=== PATIENT | female | born 1940 | race Caucasian/White ===

== ENCOUNTER 2022-08-29 15:47 | Observation (INO) | payer MEDICARE, SELFPAY ==
[2022-08-29 15:29] VITALS: BP 141/95; PULSE 98; RESP 17; O2SAT 98
[2022-08-29 16:00] VITALS: BP 122/96; PULSE 90; RESP 20; TEMP 37.1; O2SAT 99; BMI 23.7
--- NOTE | 2022-08-29 17:09 | ED_ITS ---
Documented by User: Isrrael Warner MD 08/29/22 18:36 HPI - General Adult General Chief complaint: Weakness Stated complaint: GENERAL WEAKNESS Time Seen by Provider: 08/29/22 16:59 Source: patient Mode of arrival: Wheelchair Limitations: no limitations History of Present Illness HPI narrative: This document has been composed with a new electronic medical record and [employer]ging voice recognition system. This document may not fully inaccurately reflect the entirety of the patient encounter. this patient says she hasn't felt very good for approximately one week. She says she has no appetite. She says she has not been able to drink. She says she's not been asleep. She said at nighttime both her hands and both her feet itches but there is no redness or swelling. She has not changed her medications. She is being treated for Parkinson type symptomatology and cholesterol problem but denies any other medical illnesses. She's not had heaviness squeezing or pressure in her chest. She has no shortness of breath. She said she felt warm but doesn't know if she actually was running a fever over the last week or so. She has no urinary symptoms. She has not seen any blood in her stool or urine. She is not aswellingofherlegs.Herprimarycaredoctorsuggestedshegototheemergenroom. Related Data Home Medications Medication Instructions Recorded Confirmed atorvastatin 20 mg tablet 20 mg PO DAILY 08/29/22 08/29/22 droxidopa 200 mg capsule 200 mg PO DAILY 08/29/22 08/29/22 estradiol 0.01% (0.1 mg/gram) 1 appful vaginal 08/29/22 vaginal cream Allergies Allergy/AdvReac Type Severity Reaction Status Date / Time Penicillins Allergy Intermediate Verified 08/29/22 16:05 teramician Allergy Intermediate Uncoded 08/29/22 16:05 Exam Narrative Exam Narrative: awake alert good historian does not appear in extremis. Primarily just states that she feels terrible weak fatigue sleep deprived and can't eat and drink recently. Constitutional Vital Signs - 24 hr 08/29/22 16:00 08/29/22 19:30 08/29/22 19:30 Temperature 98.8 F Pulse Rate Pulse Rate [Monitor] 90 Respiratory Rate 20 Blood Pressure Blood Pressure [Right Arm] 122/96 H Pulse Oximetry 99 Oxygen Delivery Method Room Air Room Air Room Air 08/29/22 15:29 08/29/22 19:27 Temperature Pulse Rate 98 H 99 H Pulse Rate [Monitor] Respiratory Rate 17 17 Blood Pressure 141/95 H 125/60 H Blood Pressure [Right Arm] Pulse Oximetry 98 98 Oxygen Delivery Method Common normals: no apparent distress Exam limitations: no altered mental status Orientation/consciousness: Yes oriented to person Eye Common normals: PERRL Neck & C-Spine Common normals: full ROM, no lymphadenopathy and supple Respiratory Common normals: normal respiratory effort, no use of accessory muscles and clear to auscultation bilaterally Effort & inspection: able to speak in complete sentences Back & Pelvis Common normals: no CVA tenderness Neuro Common normals: oriented x3 and CN's II-XII intact bilaterally Course Vital Signs Vital signs: Vital Signs Pulse Rate 98 H 08/29/22 15:29 Respiratory Rate 17 08/29/22 15:29 Blood Pressure 141/95 H 08/29/22 15:29 Pulse Oximetry 98 08/29/22 15:29 Temperature 98.8 F 08/29/22 16:00 Pulse Rate 99 H 08/29/22 19:27 Respiratory Rate 17 08/29/22 19:27 Blood Pressure 125/60 H 08/29/22 19:27 Pulse Oximetry 98 08/29/22 19:27 Oxygen Delivery Method Room Air 08/29/22 19:30 Medical Decision Making MDM Narrative Medical decision making narrative: this patient comes to the Emergency Room with nonspecific findings on several days' duration. Overall her abnormal laboratory tests show a low potassium, elevated liver function tests. Decreased GFR. We were unable to obtain a urinalysis on her her white blood cell count is elevated as well. Her troponin is modestly elevated but her EKG shows sinus rhythm with nonspecific T-wave changes. I'll discuss this case with the hospitalist for further delineation of her disposition. Lab Data Labs: Lab Results 08/29/22 08/29/22 Range/Units 17:41 19:33 WBC 15.9 H (4.0-11.0) 10^3/uL RBC 4.03 L (4.20-5.40) 10^6/uL Hgb 12.4 (12.0-16.0) g/dL Hct 36.7 (36.0-48.0) % MCV 91.1 (81.0-99.0) fL MCH 30.8 (26.7-34.0) pg MCHC 33.8 (29.9-35.2) g/dL RDW 13.4 (11.0-15.0) % Plt Count 379 (150-450) 10^3/uL MPV 9.8 (9.5-13.5) fL Neut % (Auto) 82.2 H (43.0-75.0) % Lymph % (Auto) 6.4 L (20.5-60.0) % [place] % (Auto) 8.4 (1.7-12.0) % Eos % (Auto) 1.9 (0.9-7.0) % Baso % (Auto) 0.3 (0.2-2.0) % Neut # (Auto) 13.1 H (1.4-6.5) 10^3/uL Lymph # (Auto) 1.0 L (1.2-3.8) 10^3/uL [place] # (Auto) 1.3 H (0.3-0.8) 10^3/uL Eos # (Auto) 0.3 (0.0-0.7) 10^3/uL Baso # (Auto) 0.1 (0.0-0.1) 10^3/uL Abs Immat Gran (auto) 0.12 H (0.00-0.03) 10^3/uL Imm/Tot Granulo (auto) 0.8 H (0.0-0.5) % Sodium 132 L (136-145) mmol/L Potassium 3.2 L (3.5-5.1) mmol/L Chloride 96 L (98-107) mmol/L Carbon Dioxide 24.0 (21.0-32.0) mmol/L Anion Gap 15.2 BUN 17.0 (7.0-18.0) mg/dL Creatinine 1.02 (0.55-1.02) mg/dL Est GFR ( Amer) >60 (>=60) Est GFR (Non-Af Amer) 52 L (>=60) BUN/Creatinine Ratio 16.7 Glucose 132 H (74-106) mg/dL Lactate 1.9 (0.4-2.0) mmol/L Calcium 9.1 (8.5-10.1) mg/dL Total Bilirubin 0.5 (0.2-1.0) mg/dL AST 81 H (15-37) U/L ALT 148 H (14-59) U/L Alkaline Phosphatase 225 H (46-116) U/L Troponin I High Sens 85.1 H* 69.0 H* (4.0-51.3) pg/mL Total Protein 7.8 (6.4-8.2) g/dL Albumin 2.4 L (3.4-5.0) g/dL Globulin 5.4 g/dL Albumin/Globulin Ratio 0.4 TSH 3.967 H (0.358-3.740) uIU/mL Discharge Plan Discharge Chief Complaint: Weakness Clinical Impression: Hepatitis, Dehydration Patient Disposition: Admitted As Inpatient Time of Disposition Decision: 18:38 Documented by User: Kevin Torerz MD 08/29/22 21:33 HPI - General Adult General Chief complaint: Weakness Stated complaint: GENERAL WEAKNESS Time Seen by Provider: 08/29/22 16:59 Related Data Home Medications Medication Instructions Recorded Confirmed atorvastatin 20 mg tablet 20 mg PO DAILY 08/29/22 08/29/22 droxidopa 200 mg capsule 200 mg PO DAILY 08/29/22 08/29/22 estradiol 0.01% (0.1 mg/gram) 1 appful vaginal 08/29/22 vaginal cream Allergies Allergy/AdvReac Type Severity Reaction Status Date / Time Penicillins Allergy Intermediate Verified 08/29/22 16:05 teramician Allergy Intermediate Uncoded 08/29/22 16:05 Exam Constitutional Vital Signs - 24 hr 08/29/22 16:00 08/29/22 19:30 08/29/22 19:30 Temperature 98.8 F Pulse Rate Pulse Rate [Monitor] 90 Respiratory Rate 20 Blood Pressure Blood Pressure [Right Arm] 122/96 H Pulse Oximetry 99 Oxygen Delivery Method Room Air Room Air Room Air 08/29/22 15:29 08/29/22 19:27 Temperature Pulse Rate 98 H 99 H Pulse Rate [Monitor] Respiratory Rate 17 17 Blood Pressure 141/95 H 125/60 H Blood Pressure [Right Arm] Pulse Oximetry 98 98 Oxygen Delivery Method Course Vital Signs Vital signs: Vital Signs Pulse Rate 98 H 08/29/22 15:29 Respiratory Rate 17 08/29/22 15:29 Blood Pressure 141/95 H 08/29/22 15:29 Pulse Oximetry 98 08/29/22 15:29 Temperature 98.8 F 08/29/22 16:00 Pulse Rate 99 H 08/29/22 19:27 Respiratory Rate 17 08/29/22 19:27 Blood Pressure 125/60 H 08/29/22 19:27 Pulse Oximetry 98 08/29/22 19:27 Oxygen Delivery Method Room Air 08/29/22 19:30 Medical Decision Making MDM Narrative Medical decision making narrative: this patient comes to the Emergency Room with nonspecific findings on several days' duration. Overall her abnormal laboratory tests show a low potassium, elevated liver function tests. Decreased GFR. We were unable to obtain a urinalysis on her her white blood cell count is elevated as well. Her troponin is modestly elevated but her EKG shows sinus rhythm with nonspecific T-wave changes. I'll discuss this case with the hospitalist for further delineation of her disposition. 2129 Patient was initially seen and evaluated by Dr. Posada. Patient was admitted by Dr. Banegas to Dr. Soni. Patient's sodium and potassium was slightly low, patient has elevation of LFTs. Patient has leukocytosis. Patient has been admitted to Dr. Soni. Patient's 2nd troponin has improved, CT of the abdomen and pelvis showed no acute abnormality. Patient will be admitted for further electrolyte replacement, hydration, and follow-up with hospitals. Patient's sodium is 132, potassium is 3.2, patient has received IV fluids. Lab Data Lab results reviewed: Yes I reviewed the patient's lab results Labs: Lab Results 08/29/22 08/29/22 Range/Units 17:41 19:33 WBC 15.9 H (4.0-11.0) 10^3/uL RBC 4.03 L (4.20-5.40) 10^6/uL Hgb 12.4 (12.0-16.0) g/dL Hct 36.7 (36.0-48.0) % MCV 91.1 (81.0-99.0) fL MCH 30.8 (26.7-34.0) pg MCHC 33.8 (29.9-35.2) g/dL RDW 13.4 (11.0-15.0) % Plt Count 379 (150-450) 10^3/uL MPV 9.8 (9.5-13.5) fL Neut % (Auto) 82.2 H (43.0-75.0) % Lymph % (Auto) 6.4 L (20.5-60.0) % [place] % (Auto) 8.4 (1.7-12.0) % Eos % (Auto) 1.9 (0.9-7.0) % Baso % (Auto) 0.3 (0.2-2.0) % Neut # (Auto) 13.1 H (1.4-6.5) 10^3/uL Lymph # (Auto) 1.0 L (1.2-3.8) 10^3/uL [place] # (Auto) 1.3 H (0.3-0.8) 10^3/uL Eos # (Auto) 0.3 (0.0-0.7) 10^3/uL Baso # (Auto) 0.1 (0.0-0.1) 10^3/uL Abs Immat Gran (auto) 0.12 H (0.00-0.03) 10^3/uL Imm/Tot Granulo (auto) 0.8 H (0.0-0.5) % Sodium 132 L (136-145) mmol/L Potassium 3.2 L (3.5-5.1) mmol/L Chloride 96 L (98-107) mmol/L Carbon Dioxide 24.0 (21.0-32.0) mmol/L Anion Gap 15.2 BUN 17.0 (7.0-18.0) mg/dL Creatinine 1.02 (0.55-1.02) mg/dL Est GFR ( Amer) >60 (>=60) Est GFR (Non-Af Amer) 52 L (>=60) BUN/Creatinine Ratio 16.7 Glucose 132 H (74-106) mg/dL Lactate 1.9 (0.4-2.0) mmol/L Calcium 9.1 (8.5-10.1) mg/dL Total Bilirubin 0.5 (0.2-1.0) mg/dL AST 81 H (15-37) U/L ALT 148 H (14-59) U/L Alkaline Phosphatase 225 H (46-116) U/L Troponin I High Sens 85.1 H* 69.0 H* (4.0-51.3) pg/mL Total Protein 7.8 (6.4-8.2) g/dL Albumin 2.4 L (3.4-5.0) g/dL Globulin 5.4 g/dL Albumin/Globulin Ratio 0.4 TSH 3.967 H (0.358-3.740) uIU/mL Discharge Plan Discharge Chief Complaint: Weakness Clinical Impression: Hepatitis, Dehydration Patient Disposition: Admitted As Inpatient Time of Disposition Decision: 18:38
--- NOTE | 2022-08-29 17:11 | ECG_ITS ---
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
--- NOTE | 2022-08-29 17:11 | XR_ITS ---
The [address] [address] Patient Name: JENNIFER BROWN MRN: [id number] date: 1940 Sex: F Assigned Patient Location: ER Current Patient Location: ER Accession/Order Number: [id number] Exam Date: 08/29/2022 17:27 Report Date: 08/29/2022 18:16 At the request of: SHEMAR CRABTREE Procedure: XR chest 1V EXAM: XR chest 1V HISTORY: dyspnea COMPARISON: None. TECHNIQUE: AP portable study FINDINGS: The heart is within normal limits in size. Calcification is noted at the aortic arch. Linear atelectasis or fibrosis is noted at the left lung base laterally. The lung pinto are otherwise clear. Pleural spaces are clear. Bony structures are unremarkable. IMPRESSION: Linear atelectasis or fibrosis at the left lung base. No superimposed acute cardiopulmonary process is otherwise identified. Electronically authenticated by: Luis Armando CHAVEZ Date: 08/29/2022 18:16
[2022-08-29] MEDS: 0.9 % SODIUM CHLORIDE 1,000 ML 100 ML IV (17:51)
[2022-08-29 17:59] LABS: Basophils Absolute Auto 0.1 10^3/uL (0.0-0.1); Basophils Percent Auto 0.3 % (0.2-2.0); Eosinophils Absolute Auto 0.3 10^3/uL (0.0-0.7); Eosinophils Percent Auto 1.9 % (0.9-7.0); Hematocrit 36.7 % (36.0-48.0); Hemoglobin 12.4 g/dL (12.0-16.0); Immature Granulocytes Abs Auto 0.12 10^3/uL (0.00-0.03); Immature Granulocytes Pct Auto 0.8 % (0.0-0.5); Lymphocytes Percent Auto 6.4 % (20.5-60.0); Mean Corpuscular HGB Conc 33.8 g/dL (29.9-35.2); Mean Corpuscular Hemoglobin 30.8 pg (26.7-34.0); Mean Corpuscular Volume 91.1 fL (81.0-99.0); Mean Platelet Volume 9.8 fL (9.5-13.5); Monocytes Absolute Auto 1.3 10^3/uL (0.3-0.8); Monocytes Percent Auto 8.4 % (1.7-12.0); Neutrophils Absolute Auto 13.1 10^3/uL (1.4-6.5); Neutrophils Percent Auto 82.2 % (43.0-75.0); Platelet Count 379 10^3/uL (150-450); Red Blood Count 4.03 10^6/uL (4.20-5.40); Red Cell Distribution Width 13.4 % (11.0-15.0); White Blood Count 15.9 10^3/uL (4.0-11.0)
[2022-08-29 18:12] LABS: Alanine Aminotransferase 148 U/L (14-59); Albumin Globulin Ratio 0.4; Albumin Level 2.4 g/dL (3.4-5.0); Alkaline Phosphatase 225 U/L (46-116); Anion Gap 15.2; Aspartate Amino Transferase 81 U/L (15-37); BUN Creatinine Ratio 16.7; Bilirubin Total 0.5 mg/dL (0.2-1.0); Calcium 9.1 mg/dL (8.5-10.1); Chloride 96 mmol/L (98-107); Estimated GFR (African America >60 (>=60); Estimated GFR (Non-African Ame 52 (>=60); Globulin 5.4 g/dL; Glucose 132 mg/dL (74-106); Potassium 3.2 mmol/L (3.5-5.1); Sodium 132 mmol/L (136-145); Total Protein 7.8 g/dL (6.4-8.2)
[2022-08-29 18:17] LABS: Lactate/Lactic Acid 1.9 mmol/L (0.4-2.0)
[2022-08-29 18:20] LABS: Thyroid Stimulating Hormone 3.967 uIU/mL (0.358-3.740)
[2022-08-29 18:26] LABS: Troponin I High Sensitivity 85.1 pg/mL (4.0-51.3)
--- NOTE | 2022-08-29 18:31 | PC.NURSE ---
Took pt to bathroom for urine sample and pt urinated behind the hat set in the toilet for her. Dr informed that a urine was not collected at this time
[2022-08-29 19:27] VITALS: BP 125/60; PULSE 101; PULSE 99; RESP 17; RESP 24; O2SAT 95; O2SAT 98
--- NOTE | 2022-08-29 20:13 | CT_ITS ---
The [address] [address] Patient Name: JENNIFER BROWN MRN: [id number] date: 1940 Sex: F Assigned Patient Location: ER Current Patient Location: ER Accession/Order Number: [id number] Exam Date: 08/29/2022 08:42 Report Date: 08/29/2022 21:21 At the request of: CHRIST PATE Procedure: CT abdomen pelvis w con EXAMINATION: CT ABDOMEN AND PELVIS WITH IV CONTRAST CLINICAL HISTORY: General weakness, headache and elevated white blood count. TECHNIQUE: CT of the abdomen and pelvis was performed using standard technique, scanning from just above the dome of the diaphragm to the symphysis pubis. All CT scans at this facility use dose modulation, iterative reconstruction, and/or weight based dosing when appropriate to reduce radiation dose to as low as reasonably achievable. Contrast: IV: 100 ml of Omnipaque 300 COMPARISON: None. RESULT: Liver: No mass. Focal fat falciform ligament. Biliary: No bile duct dilation. Gallbladder is unremarkable. Spleen: No mass. No splenomegaly. Pancreas: No mass or duct dilation. Adrenals: No mass. Kidneys: Right renal atrophy with multifocal lobulation and scarring. No suspicious mass or enhancement. No renal calculi or hydronephrosis. GI tract: Small hiatal hernia. No bowel dilation or wall thickening. Colonic diverticulosis without diverticulitis. Extensive colonic stool. Appendix is not visualized. Lymph nodes: No abdominal or pelvic lymphadenopathy. Mesentery/Peritoneum: No ascites or mass. Retroperitoneum: No mass. Vasculature: The celiac axis and SMA are patent. The portal vein and branches, splenic vein, SMV, and hepatic veins are patent. Abdominal aortic atherosclerotic disease without aneurysm. Pelvis: No mass, ascites or fluid collection. Fluid-filled moderately distended urinary bladder. Bones/Soft Tissues: Degenerative changes. Lower thorax: Bibasilar atelectasis. IMPRESSION: No acute findings in the abdomen and pelvis. Extensive colonic stool. Colonic diverticulosis without diverticulitis. Electronically authenticated by: JESSICA OH Date: 08/29/2022 21:21
[2022-08-29] MEDS: ACETAMINOPHEN 500 MG TABLET PO (21:09)
[2022-08-29 22:33] VITALS: BP 102/63; PULSE 96; RESP 16; TEMP 36.7; O2SAT 97; BMI 25.2
[2022-08-29 22:46] VITALS: BP 102/63; PULSE 96; RESP 16; TEMP 36.7; O2SAT 97; BMI 25.2
--- NOTE | 2022-08-30 02:30 | P.PN_ITS ---
Progress Note: Subjective Subjective Interval history: The patient is a 81-year-old female presenting with 3 to 4-day history of decreased urine output, decreased appetite, generalized weakness and lethargy. She is a very poor historian. She is also had generalized aches and pains. She denies any change in medications or any new medications. She denies any recent travel. She presented to the emergency room and was found to have mild leukocytosis as well as hypokalemia. She also had mild transaminitis. CT abdomen was obtained and was negative. The patient is being admitted for further evaluation. Exam Constitutional Vital Signs - 24 hr 08/29/22 16:00 08/29/22 19:30 08/29/22 19:30 Temperature 98.8 F Pulse Rate Pulse Rate [Monitor] 90 Respiratory Rate 20 Blood Pressure Blood Pressure [Right Arm] 122/96 H Pulse Oximetry 99 Oxygen Delivery Method Room Air Room Air Room Air 08/29/22 15:29 08/29/22 19:27 08/29/22 19:27 Temperature Pulse Rate 98 H 99 H 101 H Pulse Rate [Monitor] Respiratory Rate 17 17 24 Blood Pressure 141/95 H 125/60 H 125/60 H Blood Pressure [Right Arm] Pulse Oximetry 98 98 95 Oxygen Delivery Method 08/29/22 22:38 08/29/22 22:46 08/29/22 22:33 Temperature 98.0 F 98.0 F Pulse Rate 96 H 96 H Pulse Rate [Monitor] Respiratory Rate 16 16 Blood Pressure Blood Pressure [Right Arm] 102/63 102/63 Pulse Oximetry 97 97 Oxygen Delivery Method Room Air Room Air Room Air 08/29/22 22:33 Temperature Pulse Rate Pulse Rate [Monitor] Respiratory Rate Blood Pressure Blood Pressure [Right Arm] Pulse Oximetry Oxygen Delivery Method Room Air [facility] Common normals: normocephalic Chest Chest: symmetrical chest wall rise Respiratory Common normals: normal respiratory effort, no use of accessory muscles and clear to auscultation bilaterally Cardio Common normals: regular rate and regular rhythm GI Common normals: Normal to inspection, nondistended, normoactive bowel sounds present Neuro Common normals: oriented x3 Progress Note: Objective Labs Labs: Short CBC 08/29/22 Range/Units 17:41 WBC 15.9 H (4.0-11.0) 10^3/uL Hgb 12.4 (12.0-16.0) g/dL Hct 36.7 (36.0-48.0) % Plt Count 379 (150-450) 10^3/uL BMP 08/29/22 17:41 Sodium 132 L Potassium 3.2 L Chloride 96 L Carbon Dioxide 24.0 BUN 17.0 Creatinine 1.02 Glucose 132 H Calcium 9.1 Liver Function 08/29/22 Range/Units 17:41 Total Bilirubin 0.5 (0.2-1.0) mg/dL AST 81 H (15-37) U/L ALT 148 H (14-59) U/L Alkaline Phosphatase 225 H (46-116) U/L Albumin 2.4 L (3.4-5.0) g/dL Progress Note: A&P Assessment and Plan (1) Dehydration: Plan The patient is a 81-year-old female with above medical problems, presenting with generalized weakness. Generalized weakness -Provide supportive care -Likely from electrolyte derangements -PT evaluation Mild dehydration -Start gentle IV fluids Hypokalemia -Add potassium and IV fluids Transaminitis -Hold statin -Monitor liver function tests DVT Prophylaxis -Lovenox, SCDs Medication review -Medication reconciliation form completed Goals of care -Full code Communications -Discussed with the emergency room physician -Discussed with the bedside nurse -Patient updated of plan of care, all questions answered to their satisfaction Disposition -Home when medically stable Telemedicine clause -As the provider of this telehealth evaluation, requested by the patient's evaluating physician, I attest that I introduced myself to the patient, provided my credentials and determined that telemedicine via a real-time, two-way interactive audio and video platform is an appropriate and effective means of providing this service. -I reviewed the patient's chart and had a discussion with the member of the patient's treatment team. -The patient and I mutually agreed with continuation of this evaluation via telemedicine. The patient consented for the telemedicine evaluation. -This virtual encounter was taken place from [place], [place]. The encounter was approximately 35 minutes. The nurse was present during the entire time of the encounter and was able to remove the stethoscope and appropriate directions. The patient was evaluated at [facility]. Fall Risk Details Noel Fall Scale Risk Level: Moderate Fall Risk Current Medications: Current Medications Acetaminophen (Acetaminophen 325 Mg Tablet) 650 mg PO Q4H PRN PRN Reason: Mild Pain Calcium Carbonate (Calcium Carbonate 500 Mg (200mg Elemental) Tab.Chew) 500 mg PO ACHS PRN PRN Reason: Dyspepsia Enoxaparin Sodium (Enoxaparin Sodium 40 Mg/0.4 Ml Syringe) 40 mg SUBQ QD FERNANDA Sodium Chloride (Sodium Chloride 0.9% 1,000 Ml) 1,000 mls @ 100 mls/hr IV .Q10H FERNANDA Last Infusion: 08/29/22 19:52 Dose: Infused Potassium Chloride/Sodium Chloride (Sodium Chloride 0.45% - 20 Meq Kcl) 1,000 mls @ 100 mls/hr IV .Q10H FERNANDA Non-Formulary Medication (Droxidopa) 200 mg PO DAILY FERNANDA Non-Formulary Medication (Estradiol) 1 appful VAGINAL .every other day FERNANDA Non-Formulary Medication (Trazadone) 50 mg PO QHS PRN PRN Reason: Insomnia Omeprazole (Omeprazole 40 Mg Capsule.Dr) 40 mg PO QD FERNANDA Ondansetron HCl (Ondansetron Pf 4 Mg/2 Ml Vial) 4 mg IV Q4H PRN PRN Reason: Nausea And Vomiting Ropinirole HCl (Ropinirole Hcl 0.25 Mg Tablet) 0.25 mg PO .at bedtime FERNANDA Time Spent With Patient Time: Total time spent is greater than 50% in coordination of care (as documented) at patient's floor/unit and/or counseling patient: Telemedicine Attestation Telemedicine Attestation I conducted this encounter from [place], [place] via secure live, [id number] video conference with the patient, CHARGE TEST-CHARGES located at [facility] withnurse Prior to the interview, the risks and benefits of telemedicine were discussed with the patient and verbal consent was obtained.
[2022-08-30 04:00] VITALS: BP 117/69; PULSE 97; RESP 16; TEMP 36.7; O2SAT 94
[2022-08-30] MEDS: POLYETHYLENE GLYCOL 3350 17 GM POWDER PACKET PO (04:18)
[2022-08-30] MEDS: POTASSIUM CHLORIDE-0.45% NACL 1,000 ML 100 MEQ IV (04:18)
[2022-08-30] MEDS: ENOXAPARIN SODIUM 40 MG/0.4 ML SYRINGE SUBQ (04:19)
[2022-08-30] MEDS: OMEPRAZOLE 40 MG CAPSULE.DR PO (04:19)
[2022-08-30 05:26] LABS: Basophils Absolute Auto 0.1 10^3/uL (0.0-0.1); Basophils Percent Auto 0.3 % (0.2-2.0); Eosinophils Absolute Auto 0.2 10^3/uL (0.0-0.7); Eosinophils Percent Auto 1.1 % (0.9-7.0); Hematocrit 33.4 % (36.0-48.0); Hemoglobin 11.2 g/dL (12.0-16.0); Immature Granulocytes Abs Auto 0.15 10^3/uL (0.00-0.03); Lymphocytes Absolute Auto 0.6 10^3/uL (1.2-3.8); Lymphocytes Percent Auto 4.1 % (20.5-60.0); Mean Corpuscular HGB Conc 33.5 g/dL (29.9-35.2); Mean Corpuscular Hemoglobin 30.9 pg (26.7-34.0); Mean Corpuscular Volume 92.3 fL (81.0-99.0); Mean Platelet Volume 9.8 fL (9.5-13.5); Monocytes Absolute Auto 1.1 10^3/uL (0.3-0.8); Monocytes Percent Auto 7.3 % (1.7-12.0); Neutrophils Absolute Auto 12.9 10^3/uL (1.4-6.5); Neutrophils Percent Auto 86.2 % (43.0-75.0); Platelet Count 378 10^3/uL (150-450); Red Blood Count 3.62 10^6/uL (4.20-5.40); Red Cell Distribution Width 13.6 % (11.0-15.0)
[2022-08-30 05:51] LABS: Alanine Aminotransferase 114 U/L (14-59); Albumin Globulin Ratio 0.4; Albumin Level 2.1 g/dL (3.4-5.0); Alkaline Phosphatase 208 U/L (46-116); Anion Gap 13.4; Aspartate Amino Transferase 53 U/L (15-37); BUN Creatinine Ratio 15.1; Bilirubin Total 0.5 mg/dL (0.2-1.0); Calcium 8.6 mg/dL (8.5-10.1); Carbon Dioxide 22.8 mmol/L (21.0-32.0); Chloride 101 mmol/L (98-107); Estimated GFR (African America >60 (>=60); Estimated GFR (Non-African Ame >60 (>=60); Globulin 4.8 g/dL; Glucose 119 mg/dL (74-106); Potassium 3.2 mmol/L (3.5-5.1); Sodium 134 mmol/L (136-145); Total Protein 6.9 g/dL (6.4-8.2)
[2022-08-30 07:40] LABS: Ammonia 23 umol/L (11-32)
--- NOTE | 2022-08-30 08:58 | P.HP_ITS ---
H&P: HPI History of Present Illness Chief complaint: GENERAL WEAKNESS Narrative: Patient presented to the emergency with increasing weakness and severe myalgias. In ER found to have elevated liver function test. Dehydration. Admitted for work-up and treatment of same [facility] Medical History (Updated 08/29/22 @ 23:42 by Rhiannon Stanley) Surgical History (Updated 08/29/22 @ 23:43 by Rhiannon Stanley) Social History (Updated 08/30/22 @ 05:03 by Rhiannon Stanley) Within the past year, how often did you have a drink containing alcohol: never Score interpretation: A score less than 3 is consistent with normal alcohol consumption. 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 Known occupational exposures/hazards: No Highest level of school completed/degree received: high school graduate Are you now , , , , never or living with a partner: In a typical week, how many times do you talk on the telephone with family, friends, or neighbors: 3 or more times per week How often do you get together with friends or relatives: 3 or more times per week Little interest or pleasure in doing things: not at all Feeling down, depressed, or hopeless: not at all Feel stressed/tense/nervous/anxious/difficulty sleeping: not at all Life stressors: recent of family or friend Life stressor details: 3 years ago Due to disability, difficulty making decisions: No Do you think of yourself as: straight/heterosexual Gender Identity: female Meds Home Medications and Allergies Home Medications Medication Instructions Recorded Confirmed Type atorvastatin 20 mg tablet 20 mg PO DAILY 08/29/22 08/29/22 History droxidopa 200 mg capsule 200 mg PO .three times a day 08/29/22 08/30/22 History estradiol 0.01% (0.1 mg/gram) 1 appful vaginal .every other day 08/29/22 08/29/22 History vaginal cream ropinirole 0.25 mg tablet 0.25 mg PO .at bedtime 08/29/22 08/29/22 History Allergies Allergy/AdvReac Type Severity Reaction Status Date / Time Penicillins Allergy Intermediate Verified 08/29/22 23:44 teramician Allergy Intermediate Uncoded 08/29/22 23:44 Exam Constitutional Vital Signs - 24 hr 08/29/22 16:00 08/29/22 19:30 08/29/22 19:30 Temperature 98.8 F Pulse Rate Pulse Rate [Monitor] 90 Respiratory Rate 20 Blood Pressure Blood Pressure [Right Arm] 122/96 H Pulse Oximetry 99 Oxygen Delivery Method Room Air Room Air Room Air 08/29/22 15:29 08/29/22 19:27 08/29/22 19:27 Temperature Pulse Rate 98 H 99 H 101 H Pulse Rate [Monitor] Respiratory Rate 17 17 24 Blood Pressure 141/95 H 125/60 H 125/60 H Blood Pressure [Right Arm] Pulse Oximetry 98 98 95 Oxygen Delivery Method 08/29/22 22:38 08/29/22 22:46 08/29/22 22:33 Temperature 98.0 F 98.0 F Pulse Rate 96 H 96 H Pulse Rate [Monitor] Respiratory Rate 16 16 Blood Pressure Blood Pressure [Right Arm] 102/63 102/63 Pulse Oximetry 97 97 Oxygen Delivery Method Room Air Room Air Room Air 08/29/22 22:33 08/30/22 04:00 Temperature 98.0 F Pulse Rate 97 H Pulse Rate [Monitor] Respiratory Rate 16 Blood Pressure Blood Pressure [Right Arm] 117/69 Pulse Oximetry 94 L Oxygen Delivery Method Room Air Room Air Respiratory Common normals: normal respiratory effort, no use of accessory muscles and clear to auscultation bilaterally Cardio Common normals: regular rate, regular rhythm and S1 normal heart sound GI Common normals: soft to palpation, non-tender and no hepatosplenomegaly Results Labs Labs: Short CBC 08/29/22 08/30/22 Range/Units 17:41 05:06 WBC 15.9 H 15.0 H (4.0-11.0) 10^3/uL Hgb 12.4 11.2 L (12.0-16.0) g/dL Hct 36.7 33.4 L (36.0-48.0) % Plt Count 379 378 (150-450) 10^3/uL BMP 08/29/22 08/30/22 17:41 05:06 Sodium 132 L 134 L Potassium 3.2 L 3.2 L Chloride 96 L 101 Carbon Dioxide 24.0 22.8 BUN 17.0 13.0 Creatinine 1.02 0.86 Glucose 132 H 119 H Calcium 9.1 8.6 Liver Function 08/29/22 08/30/22 Range/Units 17:41 05:06 Total Bilirubin 0.5 0.5 (0.2-1.0) mg/dL AST 81 H 53 H (15-37) U/L ALT 148 H 114 H (14-59) U/L Alkaline Phosphatase 225 H 208 H (46-116) U/L Albumin 2.4 L 2.1 L (3.4-5.0) g/dL Assessment and Plan Assessment and Plan (1) Dehydration: Assessment and Plan: Patient with dehydration elevated liver function test more lab work was done to try to elucidate a of the reason. Unable to find anything significant. Patient after getting significant fluids overnight. She was able to eat breakfast and lunch. She tolerated that well. She will be discharged home in [facility]. Medications see list. We will have her hold off on her cholesterol medication in case that is a compounding factor. Follow-up with her PCP plan based on their outpatient work-up
[2022-08-30] MEDS: POTASSIUM CHLORIDE 10 MEQ ER TABLET PO (09:21)
[2022-08-30] MEDS: ACETAMINOPHEN 325 MG TABLET 650 MG PO (09:23)
--- NOTE | 2022-08-30 09:48 | CM.NOTE ---
Rounds made with Dr. Grimes. Potential plan for discharge is joint pain and all over aches improves. Shona verbalizes understanding. Currently Shona lives alone. She continues to drive and meets friends on a regular basis. She uses no assistive devices in the home. Denies needs at this time.
[2022-08-30 09:53] LABS: Erythrocyte Sedimentation Rate >130 mm/hr (<=30)
[2022-08-30 10:11] LABS: Troponin I High Sensitivity 100.7 pg/mL (4.0-51.3)
[2022-08-30 10:38] LABS: Mono Screen NEGATIVE (NEGATIVE)
[2022-08-30 10:51] LABS: Troponin I High Sensitivity 94.5 pg/mL (4.0-51.3)
--- NOTE | 2022-08-30 12:13 | SWNOTE1 ---
SW met with pt to discuss dc needs. Pt lives at home with her dog. Pt is independent at home and drives, goes with friends to places, etc. Pt does not use any devices and has no HH coming in. Pt has no needs at discharge. SW reviewed the GARCÍA form with pt, she voiced understanding, no questions. Pt signed form, original given to pt and copy placed in chart.
[2022-08-30 12:28] VITALS: BMI 25.2
[2022-08-30 13:07] LABS: Bilirubin Urine NEGATIVE (NEGATIVE); Blood Urine SMALL (NEGATIVE); Clarity Urine CLEAR (CLEAR); Color Urine LT. YELLOW (YELLOW); Glucose Urine UA NEGATIVE (NEGATIVE); Ketones Urine NEGATIVE (NEGATIVE); Leukocyte Esterase Urine NEGATIVE (NEGATIVE); Nitrite Urine NEGATIVE (NEGATIVE); Protein Urine NEGATIVE (NEG/TRACE); Specific Gravity Urine <=1.005 (1.005-1.025); Urobilinogen Urine 0.2 EU/dL (0.2-1.0)
[2022-08-30 13:15] LABS: WBC Urine 0-2 #/HPF (NONE SEEN)
[2022-08-30 13:16] LABS: Bacteria Urine TRACE #/HPF (NONE SEEN); Cast Seen? NONE SEEN #/LPF (NONE SEEN); Crystals Seen? None Seen #/HPF (None Seen); Mucus Urine NONE SEEN (NONE SEEN); Squamous Epithelial Cell Urine NONE SEEN #/LPF (NONE/RARE); Urine Culture Indicated ALREADY ORDERED
[2022-09-07 14:15] LABS: EBV Ab VCA, IgM <36.0 U/mL (0.0-35.9)
[2022-09-07 14:15] LABS: HBsAg Screen Negative (Negative); HCV Ab Non Reactive (Non Reactive); Hep A Ab, IgM Negative (Negative); Hep B Core Ab, IgM Negative (Negative)
== END 2022-08-30 14:09 | disposition home or self-care (01) ==
LOC: ER 18:43 → MS 22:37
PROVIDERS: Admitting Provider Internal Medicine; Emergency Provider Emergency Medicine Emergency Medical Services; Visit Provider Family Medicine
DX: E86.0 Dehydration (principal); K75.9 Inflammatory liver disease, unspecified; R53.1 Weakness; E87.6 Hypokalemia; R74.01 Elevation of levels of liver transaminase levels
CPT/HCPCS: 36415; 71045; 74177; 80053; 80074; 81001; 82140; 83605; 84443; 84484; 85025; 85652; 86308; 86664; 86665; 87086; 93005; 96372; 96374; 96375; 97161; 97530; 99285; G0378; Q3014; Q9967

== ENCOUNTER 2022-09-01 19:09 | Emergency (ER) | payer MEDICARE, SELFPAY ==
[2022-09-01 19:17] VITALS: BP 166/83; PULSE 109; RESP 20; TEMP 38.2; O2SAT 97; BMI 24.9
[2022-09-01 19:36] VITALS: PULSE 116
[2022-09-01 20:10] LABS: Bilirubin Urine NEGATIVE (NEGATIVE); Blood Urine SMALL (NEGATIVE); Clarity Urine CLEAR (CLEAR); Color Urine YELLOW (YELLOW); Glucose Urine UA NEGATIVE (NEGATIVE); Ketones Urine NEGATIVE (NEGATIVE); Leukocyte Esterase Urine NEGATIVE (NEGATIVE); Nitrite Urine NEGATIVE (NEGATIVE); Protein Urine 100 mg/dL (NEG/TRACE); Specific Gravity Urine 1.025 (1.005-1.025); Urobilinogen Urine 0.2 EU/dL (0.2-1.0)
[2022-09-01 20:11] LABS: Urine Microscopic Indicated YES
--- NOTE | 2022-09-01 20:14 | ED_ITS ---
HPI - General Adult General Chief complaint: Dizziness Stated complaint: fall Time Seen by Provider: 09/01/22 19:44 Source: patient and other Source information: EMS Mode of arrival: ambulance Limitations: no limitations History of Present Illness HPI narrative: patient recently hospitalized for weakness and myalgias. She was started on statin by her PCP . Was found to have elevated transaminases during her hospitalization 2 days ago. Was hydrated and discharged home yesterday. Now returns complaining of weakness, joint pain and blurred vision. She lives alone. Describes recurrent episodes of blurred vision on and off since 6:30AM . States since 2PM her vision has remained blurred. She has a headache but has had this for one week. States she was sleeping and her head fell to the side while she was sleeping. She felt a crack in her left neck that has been present ever since and the sensation radiates into the top of her scalp. Denies numbness or her extremities. Does have joint pain. Denies urinary complaint or chest pain Related Data Home Medications Medication Instructions Recorded Confirmed atorvastatin 20 mg tablet 20 mg PO DAILY 08/29/22 08/29/22 droxidopa 200 mg capsule 200 mg PO DAILY 08/29/22 09/01/22 estradiol 0.01% (0.1 mg/gram) 1 appful vaginal .every other day 08/29/22 09/01/22 vaginal cream ropinirole 0.25 mg tablet 0.25 mg PO .at bedtime 08/29/22 09/01/22 aspirin 81 mg tablet,delayed 81 mg PO DAILY 09/01/22 09/01/22 release (Adult Aspirin Regimen) Allergies Allergy/AdvReac Type Severity Reaction Status Date / Time Penicillins Allergy Intermediate Verified 08/29/22 23:44 teramician Allergy Intermediate Uncoded 08/29/22 23:44 Review of Systems ROS Status of ROS 10 or more systems reviewed and unremarkable except as noted in history and below Eyes Reports: change in vision and blurry vision PFSH PFS Medical History Surgical History Social History Within the past year, how often did you have a drink containing alcohol: never Score interpretation: A score less than 3 is consistent with normal alcohol consumption. 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 Known occupational exposures/hazards: No Highest level of school completed/degree received: high school graduate Are you now , , , , never or living with a partner: In a typical week, how many times do you talk on the telephone with family, friends, or neighbors: 3 or more times per week How often do you get together with friends or relatives: 3 or more times per week Little interest or pleasure in doing things: not at all Feeling down, depressed, or hopeless: not at all Feel stressed/tense/nervous/anxious/difficulty sleeping: not at all Life stressors: recent of family or friend Life stressor details: 3 years ago Due to disability, difficulty making decisions: No Do you think of yourself as: straight/heterosexual Gender Identity: female Exam Constitutional Vital Signs - 24 hr 09/01/22 19:17 Temperature 100.7 F H Pulse Rate [Monitor] 109 H Respiratory Rate 20 Blood Pressure [Right Arm] 166/83 H Pulse Oximetry 97 Oxygen Delivery Method Room Air Common normals: no apparent distress, oriented x3, no limitations and healthy appearing HENMT Common normals: normocephalic and head/scalp atraumatic Eye Common normals: PERRL Other: when patient looks to the right her left eye does not goes pass midline. she however complains of blurred vision looking to the right and left Neck & C-Spine Common normals: full ROM Respiratory Common normals: normal respiratory effort, no use of accessory muscles and clear to auscultation bilaterally Cardio Common normals: regular rate, regular rhythm, S1 normal heart sound and S2 normal heart sound GI Common normals: Normal to inspection, nondistended, normoactive bowel sounds present, soft to palpation and non-tender Extremity Common normals: normal to inspection and full ROM Other: bilat ankle edema Neuro Common normals: oriented x3 and moves all extremities Other: with right lou gaze the left eye does not cross the midline Psych Appearance: grossly normal and well kempt Course Vital Signs Vital signs: Vital Signs Temperature 100.7 F H 09/01/22 19:17 Pulse Rate 109 H 09/01/22 19:17 Respiratory Rate 20 09/01/22 19:17 Blood Pressure 166/83 H 09/01/22 19:17 Pulse Oximetry 97 09/01/22 19:17 Oxygen Delivery Method Room Air 09/01/22 19:17 Temperature 100.7 F H 09/01/22 19:17 Pulse Rate 102 H 09/02/22 01:42 Respiratory Rate 20 09/02/22 01:42 Blood Pressure 152/90 H 09/02/22 01:42 Pulse Oximetry 94 L 09/02/22 01:42 Oxygen Delivery Method Room Air 09/02/22 01:42 Medical Decision Making MDM Narrative Medical decision making narrative: patient presented with blurred vision. Exam with abnormal EOMI. She also had leukocytosis and diffuse arthralgia. Her hip and knee pain limited movement of her legs due to pain. Discussion with stroke physician and he felt she had a stroke. CT brain, CTA brain and neck without acute findings. Patient given 600mg plavix per recommendation of stroke physician. Her atypical joint pain, leukocytosis and low grade fever were a separate problem of which [facility] was informed. she was accepted for transfer to [facility] Lab Data Labs: Lab Results 09/01/22 09/01/22 09/01/22 Range/Units 19:55 20:05 20:11 WBC 21.9 H (4.0-11.0) 10^3/uL RBC 3.96 L (4.20-5.40) 10^6/uL Hgb 12.1 (12.0-16.0) g/dL Hct 36.2 (36.0-48.0) % MCV 91.4 (81.0-99.0) fL MCH 30.6 (26.7-34.0) pg MCHC 33.4 (29.9-35.2) g/dL RDW 13.9 (11.0-15.0) % Plt Count 524 H (150-450) 10^3/uL MPV 9.5 (9.5-13.5) fL Neut % (Auto) 88.2 H (43.0-75.0) % Lymph % (Auto) 2.9 L (20.5-60.0) % [place] % (Auto) 6.2 (1.7-12.0) % Eos % (Auto) 0.6 L (0.9-7.0) % Baso % (Auto) 0.3 (0.2-2.0) % Neut # (Auto) 19.3 H (1.4-6.5) 10^3/uL Lymph # (Auto) 0.6 L (1.2-3.8) 10^3/uL [place] # (Auto) 1.4 H (0.3-0.8) 10^3/uL Eos # (Auto) 0.1 (0.0-0.7) 10^3/uL Baso # (Auto) 0.1 (0.0-0.1) 10^3/uL Abs Immat Gran (auto) 0.39 H (0.00-0.03) 10^3/uL Imm/Tot Granulo (auto) 1.8 H (0.0-0.5) % Sodium 129 L (136-145) mmol/L Potassium 4.0 (3.5-5.1) mmol/L Chloride 96 L (98-107) mmol/L Carbon Dioxide 22.1 (21.0-32.0) mmol/L Anion Gap 14.9 BUN 11.0 (7.0-18.0) mg/dL Creatinine 0.89 (0.55-1.02) mg/dL Est GFR ( Amer) >60 (>=60) Est GFR (Non-Af Amer) >60 (>=60) BUN/Creatinine Ratio 12.4 Glucose 182 H (74-106) mg/dL Lactate 3.6 H* (0.4-2.0) mmol/L Calcium 9.0 (8.5-10.1) mg/dL Total Bilirubin 0.4 (0.2-1.0) mg/dL AST 32 (15-37) U/L ALT 74 H (14-59) U/L Alkaline Phosphatase 270 H (46-116) U/L Myoglobin 58 (9-82) ng/mL Troponin I High Sens 60.0 H* (4.0-51.3) pg/mL Total Protein 7.7 (6.4-8.2) g/dL Albumin 2.1 L (3.4-5.0) g/dL Globulin 5.6 g/dL Albumin/Globulin Ratio 0.4 Urine Color Yellow (YELLOW) Urine Clarity Clear (CLEAR) Urine pH 6.0 (5.0-9.0) Ur Specific [place] 1.025 (1.005-1.025) Urine Protein 100 A (NEG/TRACE) mg/dL Urine Glucose (UA) Negative (NEGATIVE) mg/dL Urine Ketones Negative (NEGATIVE) mg/dL Urine Occult Blood Small A (NEGATIVE) Urine Nitrite Negative (NEGATIVE) Urine Bilirubin Negative (NEGATIVE) Urine Urobilinogen 0.2 (0.2-1.0) EU/dL Ur Leukocyte Esterase Negative (NEGATIVE) Urine RBC 5-10 A (0-2) #/HPF Urine WBC None seen (NONE SEEN) #/HPF Ur Squamous Epith Cells Few A (NONE/RARE) #/LPF Urine Crystals Seen A (None Seen) #/HPF Amorphous Sediment Few Urine Bacteria Small A (NONE SEEN) #/HPF Urine Casts Seen A (NONE SEEN) #/LPF Fine Granular Casts Few Urine Mucus Trace A (NONE SEEN) Ur Culture Indicated? Yes SARS-CoV-2 (PCR) (NEGATIVE) SARS-CoV-2 RNA (TALITA) (NOT DETECTE) 09/01/22 09/02/22 09/02/22 Range/Units 23:50 01:15 01:55 WBC (4.0-11.0) 10^3/uL RBC (4.20-5.40) 10^6/uL Hgb (12.0-16.0) g/dL Hct (36.0-48.0) % MCV (81.0-99.0) fL MCH (26.7-34.0) pg MCHC (29.9-35.2) g/dL RDW (11.0-15.0) % Plt Count (150-450) 10^3/uL MPV (9.5-13.5) fL Neut % (Auto) (43.0-75.0) % Lymph % (Auto) (20.5-60.0) % [place] % (Auto) (1.7-12.0) % Eos % (Auto) (0.9-7.0) % Baso % (Auto) (0.2-2.0) % Neut # (Auto) (1.4-6.5) 10^3/uL Lymph # (Auto) (1.2-3.8) 10^3/uL [place] # (Auto) (0.3-0.8) 10^3/uL Eos # (Auto) (0.0-0.7) 10^3/uL Baso # (Auto) (0.0-0.1) 10^3/uL Abs Immat Gran (auto) (0.00-0.03) 10^3/uL Imm/Tot Granulo (auto) (0.0-0.5) % Sodium (136-145) mmol/L Potassium (3.5-5.1) mmol/L Chloride (98-107) mmol/L Carbon Dioxide (21.0-32.0) mmol/L Anion Gap BUN (7.0-18.0) mg/dL Creatinine (0.55-1.02) mg/dL Est GFR ( Amer) (>=60) Est GFR (Non-Af Amer) (>=60) BUN/Creatinine Ratio Glucose (74-106) mg/dL Lactate 1.8 (0.4-2.0) mmol/L Calcium (8.5-10.1) mg/dL Total Bilirubin (0.2-1.0) mg/dL AST (15-37) U/L ALT (14-59) U/L Alkaline Phosphatase (46-116) U/L Myoglobin (9-82) ng/mL Troponin I High Sens 69.5 H* (4.0-51.3) pg/mL Total Protein (6.4-8.2) g/dL Albumin (3.4-5.0) g/dL Globulin g/dL Albumin/Globulin Ratio Urine Color (YELLOW) Urine Clarity (CLEAR) Urine pH (5.0-9.0) Ur Specific [place] (1.005-1.025) Urine Protein (NEG/TRACE) mg/dL Urine Glucose (UA) (NEGATIVE) mg/dL Urine Ketones (NEGATIVE) mg/dL Urine Occult Blood (NEGATIVE) Urine Nitrite (NEGATIVE) Urine Bilirubin (NEGATIVE) Urine Urobilinogen (0.2-1.0) EU/dL Ur Leukocyte Esterase (NEGATIVE) Urine RBC (0-2) #/HPF Urine WBC (NONE SEEN) #/HPF Ur Squamous Epith Cells (NONE/RARE) #/LPF Urine Crystals (None Seen) #/HPF Amorphous Sediment Urine Bacteria (NONE SEEN) #/HPF Urine Casts (NONE SEEN) #/LPF Fine Granular Casts Urine Mucus (NONE SEEN) Ur Culture Indicated? SARS-CoV-2 (PCR) Negative (NEGATIVE) SARS-CoV-2 RNA (TALITA) Not detected (NOT DETECTE) Discharge Plan Discharge Chief Complaint: Dizziness Clinical Impression: Arthralgia, Leukocytosis, Cerebrovascular accident Patient Disposition: [facility] Time of Disposition Decision: 00:41 Discharge Location: [facility] Discharge location: [facility] Condition: Fair Mode of Transportation: EMS Discharge Date/Time: 09/02/22 02:40
[2022-09-01 20:21] LABS: Basophils Absolute Auto 0.1 10^3/uL (0.0-0.1); Basophils Percent Auto 0.3 % (0.2-2.0); Eosinophils Absolute Auto 0.1 10^3/uL (0.0-0.7); Eosinophils Percent Auto 0.6 % (0.9-7.0); Hematocrit 36.2 % (36.0-48.0); Hemoglobin 12.1 g/dL (12.0-16.0); Immature Granulocytes Abs Auto 0.39 10^3/uL (0.00-0.03); Immature Granulocytes Pct Auto 1.8 % (0.0-0.5); Lymphocytes Absolute Auto 0.6 10^3/uL (1.2-3.8); Lymphocytes Percent Auto 2.9 % (20.5-60.0); Mean Corpuscular HGB Conc 33.4 g/dL (29.9-35.2); Mean Corpuscular Hemoglobin 30.6 pg (26.7-34.0); Mean Corpuscular Volume 91.4 fL (81.0-99.0); Mean Platelet Volume 9.5 fL (9.5-13.5); Monocytes Absolute Auto 1.4 10^3/uL (0.3-0.8); Monocytes Percent Auto 6.2 % (1.7-12.0); Neutrophils Absolute Auto 19.3 10^3/uL (1.4-6.5); Neutrophils Percent Auto 88.2 % (43.0-75.0); Platelet Count 524 10^3/uL (150-450); Red Blood Count 3.96 10^6/uL (4.20-5.40); Red Cell Distribution Width 13.9 % (11.0-15.0); White Blood Count 21.9 10^3/uL (4.0-11.0)
[2022-09-01 20:21] LABS: Bacteria Urine SMALL #/HPF (NONE SEEN); Crystals Seen? Seen #/HPF (None Seen); Mucus Urine TRACE (NONE SEEN); Squamous Epithelial Cell Urine FEW #/LPF (NONE/RARE); WBC Urine NONE SEEN #/HPF (NONE SEEN)
--- NOTE | 2022-09-01 20:21 | CT_ITS ---
The [address] [address] Patient Name: JENNIFER BROWN MRN: [id number] date: 1940 Sex: F Assigned Patient Location: ER Current Patient Location: ER Accession/Order Number: [id number] Exam Date: 09/01/2022 20:30 Report Date: 09/01/2022 20:59 At the request of: GABY JEFFRIES Procedure: CT stroke head/brain wo con EXAMINATION: CT stroke head/brain wo con, 09/01/2022 8:30 PM EDT HISTORY: blurred vision. COMPARISON: None. TECHNIQUE: CT scan of the head was performed without IV contrast. CT dose reduction technique was used, including Automated Exposure Control. FINDINGS: BRAIN PARENCHYMA/CSF SPACES: Ventricles are normal in size for age. There is no hemorrhage, mass effect or midline shift. There is diffuse atherosclerotic carotid artery calcification. There is moderate low-attenuation throughout the white matter consistent with chronic microvascular ischemia. PARANASAL SINUSES: Clear. SKULL BASE AND CALVARIUM: Normal. EXTRACRANIAL SOFT TISSUES: Normal. IMPRESSION: 1. No acute intracranial abnormality. 2. Atherosclerotic calcification and chronic microvascular ischemia. Electronically authenticated by: ERNESTO PADILLA Date: 09/01/2022 20:59
[2022-09-01 20:22] LABS: Amorphous Sediment Urine FEW; Cast Seen? SEEN #/LPF (NONE SEEN); Fine Granular Casts Urine FEW
[2022-09-01] MEDS: 0.9 % SODIUM CHLORIDE 1,000 ML 999 ML IV ×2 (20:22→23:57)
[2022-09-01 20:23] LABS: Urine Culture Indicated YES
[2022-09-01 20:45] LABS: Alanine Aminotransferase 74 U/L (14-59); Albumin Globulin Ratio 0.4; Albumin Level 2.1 g/dL (3.4-5.0); Alkaline Phosphatase 270 U/L (46-116); Anion Gap 14.9; Aspartate Amino Transferase 32 U/L (15-37); BUN Creatinine Ratio 12.4; Bilirubin Total 0.4 mg/dL (0.2-1.0); Carbon Dioxide 22.1 mmol/L (21.0-32.0); Chloride 96 mmol/L (98-107); Estimated GFR (African America >60 (>=60); Estimated GFR (Non-African Ame >60 (>=60); Globulin 5.6 g/dL; Glucose 182 mg/dL (74-106); Sodium 129 mmol/L (136-145); Total Protein 7.7 g/dL (6.4-8.2)
[2022-09-01 21:16] LABS: Lactate/Lactic Acid 3.6 mmol/L (0.4-2.0)
--- NOTE | 2022-09-01 21:18 | ECG_ITS ---
The [facility] Test Date: 2022-09-01 Pat Name: JENNIFER BROWN Department: Room: - Gender: Female Director Clinical Applications: : 1940 Requested By: DESHAWN DAY Order Number: [id number] Reading MD: DESHAWN DAY Measurements Intervals [place] Rate: 116 P: 13 UT: 192 QRS: 89 QRSD: 72 T: -63 QT: 298 QTc: 367 Interpretive Statements 1120 Sinus tachycardia 1470 with occasional supraventricular premature complexes [address] depression INF T wave inversion - possibel inf wall ischemia 9150 abnormal ECG Compared to ECG 08/29/2022 17:40:22 ST (T wave) deviation now present Sinus rhythm no longer present Electronically Signed On 09-02-2022 7:17:26 EDT by DESHAWN DAY
[2022-09-01 21:29] LABS: Myoglobin 58 ng/mL (9-82)
[2022-09-01 21:30] VITALS: BP 162/72; PULSE 105; RESP 22; O2SAT 97
--- NOTE | 2022-09-01 22:00 | CT_ITS ---
[address] [address] Patient Name: JENNIFER BROWN MRN: [id number] date: 1940 Sex: F Assigned Patient Location: ER Current Patient Location: Accession/Order Number: [id number] Exam Date: 09/01/2022 22:32 Report Date: 09/02/2022 00:00 At the request of: GABY JEFFRIES Procedure: CT angio neck CT angio neck, CT angio head INDICATION:81 years old; CVA blurred vision. TECHNIQUE: CT angiogram of the head and neck was performed. Coronal, sagittal and 3-D reformats were created and reviewed. IV contrast Omnipaque 350 100mL. No complications . Carotid stenosis measurements were made according to the NASCET criteria. Ionizing radiation dose reduced via iterative reconstruction/FBP blend and body size kV/mA adjustment. COMPARISON: Noncontrast head CT dated 09/01/2022 at 8:36 PM. FINDINGS: NECK FINDINGS: AORTIC ARCH: Calcific plaque is noted. There is calcific plaque in the proximal left subclavian artery with mild to moderate stenosis proximal to the origin of the left vertebral artery. Innominate and left common carotid arteries are patent. ANTERIOR CIRCULATION: The carotid arteries are patent. Calcific plaque without flow-limiting stenosis in the carotid bifurcations. There is a lobulated irregular appearance of the cervical portions of both ICA consistent with atherosclerotic change versus fibromuscular hyperplasia. No intraluminal thrombus or dissection is seen. POSTERIOR CIRCULATION: The V1, V2, and V3 segments of vertebral arteries are patent. There is a right dominant system. There is irregular lobulation of the distal V2 segment of the left vertebral artery with a focal calcification in the proximal V3 segment. Atherosclerotic change versus fibromuscular hyperplasia. No intraluminal thrombus or dissection is seen. DEVELOPMENTAL ANOMALIES: None. OTHER: No thyroid nodule or adenopathy. Cervical spondylosis. HEAD BRAIN: Please see the report of the noncontrast head CT. ANTERIOR CIRCULATION: The intrapetrous, intracavernous, supraclinoid ICA are patent. There is calcific plaque without stenosis in the ICA. Intracranial termini are patent. ANA patent bilaterally. MCA patent bilaterally. No stenosis or thrombus. No large vessel occlusion. No aneurysm is appreciated. Distal distributions are bilaterally symmetric. POSTERIOR CIRCULATION: Calcific plaque without stenosis in the V4 segments. PICA patent. Small AICA patent on the left. Basilar artery and basilar tip are patent. SCA patent. There is mild fusiform dilatation of the P1/proximal P2 segment of the STOGY ROLLER on the left. There is additional mild fusiform dilatation of the proximal P2 segment on the right. There is short segment high-grade stenosis in the proximal P2 segment just distal to the area of fusiform dilatation, image 113/series 10 and image 42/series 11. Distal STOGY ROLLER distributions are symmetric. DEVELOPMENTAL ANOMALIES: None. OTHER: No pathologic intracranial enhancement lesions are appreciated. The study is not optimized for evaluation the intracranial veins. IMPRESSION: 1. Atherosclerotic change with mild to moderate stenosis in the left subclavian artery proximal to the origin of the left vertebral artery. 2. No flow limiting stenosis is seen in the extracranial ICA. There is irregular lobulation in the distal cervical ICA bilaterally consistent with atherosclerotic change or fibromuscular hyperplasia. No intraluminal thrombus or dissection is seen. Intracranial ANA and MCA patent bilaterally. 3. Irregular lobulated appearance consistent with atherosclerotic change or fibromuscular hyperplasia in the distal V2 segment of the left vertebral artery which is the nondominant vessel. No intraluminal thrombus or dissection is seen. 4. Fusiform dilatation of the proximal portions of both STOGY ROLLER. On the right, there is a short segment high-grade stenosis in the proximal P2 segment just distal to the area of dilatation. Distal STOGY ROLLER distributions are symmetric. If there is continued suspicion for the presence of acute infarction, then MRI with diffusion imaging would be more sensitive for further evaluation. Electronically authenticated by: HERON SHELDON Date: 09/02/2022 00:00
--- NOTE | 2022-09-01 22:00 | CT_ITS ---
[address] [address] Patient Name: JENNIFER BROWN MRN: [id number] date: 1940 Sex: F Assigned Patient Location: ER Current Patient Location: Accession/Order Number: [id number] Exam Date: 09/01/2022 22:32 Report Date: 09/02/2022 00:00 At the request of: GABY JEFFRIES Procedure: CT angio head CT angio neck, CT angio head INDICATION:81 years old; CVA blurred vision. TECHNIQUE: CT angiogram of the head and neck was performed. Coronal, sagittal and 3-D reformats were created and reviewed. IV contrast Omnipaque 350 100mL. No complications . Carotid stenosis measurements were made according to the NASCET criteria. Ionizing radiation dose reduced via iterative reconstruction/FBP blend and body size kV/mA adjustment. COMPARISON: Noncontrast head CT dated 09/01/2022 at 8:36 PM. FINDINGS: NECK FINDINGS: AORTIC ARCH: Calcific plaque is noted. There is calcific plaque in the proximal left subclavian artery with mild to moderate stenosis proximal to the origin of the left vertebral artery. Innominate and left common carotid arteries are patent. ANTERIOR CIRCULATION: The carotid arteries are patent. Calcific plaque without flow-limiting stenosis in the carotid bifurcations. There is a lobulated irregular appearance of the cervical portions of both ICA consistent with atherosclerotic change versus fibromuscular hyperplasia. No intraluminal thrombus or dissection is seen. POSTERIOR CIRCULATION: The V1, V2, and V3 segments of vertebral arteries are patent. There is a right dominant system. There is irregular lobulation of the distal V2 segment of the left vertebral artery with a focal calcification in the proximal V3 segment. Atherosclerotic change versus fibromuscular hyperplasia. No intraluminal thrombus or dissection is seen. DEVELOPMENTAL ANOMALIES: None. OTHER: No thyroid nodule or adenopathy. Cervical spondylosis. HEAD BRAIN: Please see the report of the noncontrast head CT. ANTERIOR CIRCULATION: The intrapetrous, intracavernous, supraclinoid ICA are patent. There is calcific plaque without stenosis in the ICA. Intracranial termini are patent. ANA patent bilaterally. MCA patent bilaterally. No stenosis or thrombus. No large vessel occlusion. No aneurysm is appreciated. Distal distributions are bilaterally symmetric. POSTERIOR CIRCULATION: Calcific plaque without stenosis in the V4 segments. PICA patent. Small AICA patent on the left. Basilar artery and basilar tip are patent. SCA patent. There is mild fusiform dilatation of the P1/proximal P2 segment of the DATA MINING ANALYST on the left. There is additional mild fusiform dilatation of the proximal P2 segment on the right. There is short segment high-grade stenosis in the proximal P2 segment just distal to the area of fusiform dilatation, image 113/series 10 and image 42/series 11. Distal DATA MINING ANALYST distributions are symmetric. DEVELOPMENTAL ANOMALIES: None. OTHER: No pathologic intracranial enhancement lesions are appreciated. The study is not optimized for evaluation the intracranial veins. IMPRESSION: 1. Atherosclerotic change with mild to moderate stenosis in the left subclavian artery proximal to the origin of the left vertebral artery. 2. No flow limiting stenosis is seen in the extracranial ICA. There is irregular lobulation in the distal cervical ICA bilaterally consistent with atherosclerotic change or fibromuscular hyperplasia. No intraluminal thrombus or dissection is seen. Intracranial ANA and MCA patent bilaterally. 3. Irregular lobulated appearance consistent with atherosclerotic change or fibromuscular hyperplasia in the distal V2 segment of the left vertebral artery which is the nondominant vessel. No intraluminal thrombus or dissection is seen. 4. Fusiform dilatation of the proximal portions of both DATA MINING ANALYST. On the right, there is a short segment high-grade stenosis in the proximal P2 segment just distal to the area of dilatation. Distal DATA MINING ANALYST distributions are symmetric. If there is continued suspicion for the presence of acute infarction, then MRI with diffusion imaging would be more sensitive for further evaluation. Electronically authenticated by: HERON SHELDON Date: 09/02/2022 00:00
[2022-09-01 22:06] VITALS: BP 147/78; PULSE 103; RESP 21; O2SAT 97
--- NOTE | 2022-09-01 22:10 | PC.NURSE ---
When patient tracks with her eyes her right eye moves to the right but the left eye does not stays more central.
[2022-09-01 23:06] VITALS: BP 166/79; PULSE 103; RESP 16; O2SAT 97
[2022-09-02 00:26] LABS: Lactate/Lactic Acid 1.8 mmol/L (0.4-2.0)
[2022-09-02] MEDS: CLOPIDOGREL BISULFATE 75 MG TABLET 600 MG PO (00:28)
[2022-09-02 00:37] VITALS: BP 132/76; PULSE 79; RESP 16; O2SAT 96
--- NOTE | 2022-09-02 00:39 | PC.NURSE ---
Patient needed to get on bedpan but states she can't turn, also states she can't move her legs. asked her to left each of her legs but she states she can't do it. Dr loomis and in to re-exam. Patient states she hurts all over and is painful to move.
[2022-09-02 01:42] VITALS: BP 152/90; PULSE 102; RESP 20; O2SAT 94
[2022-09-02 02:01] LABS: Troponin I High Sensitivity 69.5 pg/mL (4.0-51.3)
[2022-09-02 13:08] LABS: SARS-CoV-2 Ag Negative (NEGATIVE)
[2022-09-03 15:39] LABS: SARS-CoV-2 NAA NOT DETECTED (NOT DETECTE)
== END 2022-09-02 02:40 | disposition short-term general hospital (02) ==
LOC: ER 19:16
PROVIDERS: Emergency Provider Internal Medicine
DX: I63.9 Cerebral infarction, unspecified (principal); M25.50 Pain in unspecified joint; D72.829 Elevated white blood cell count, unspecified; Z79.899 Other long term (current) drug therapy; Z79.82 Long term (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 of aspirin
CPT/HCPCS: 36415; 70450; 70496; 70498; 80053; 81003; 81015; 83605; 83874; 84484; 85025; 87040; 87086; 87635; 87811; 93005; 99285; Q9967; U0003

== ENCOUNTER 2023-10-02 16:30 | Emergency (ER) | payer MEDICARE, SELFPAY ==
[2023-10-02 16:35] VITALS: BP 180/82; PULSE 62; TEMP 36.7; O2SAT 100; BMI 26.3
--- NOTE | 2023-10-02 16:51 | CT_ITS ---
The [address] [address] Patient Name: JENNIFER BROWN MRN: [id number] date: 1940 Sex: F Assigned Patient Location: ER Current Patient Location: ER Accession/Order Number: [id number] Exam Date: 10/02/2023 17:51 Report Date: 10/02/2023 18:50 At the request of: PERLA JACKSON Procedure: CT head/brain wo con EXAM: CT head/brain wo con HISTORY: Dizzy COMPARISON: None. TECHNIQUE: FINDINGS: CT/CT head/brain wo con IMPRESSION: Electronically authenticated by: VARINDER BARBOSA Date: 10/02/2023 18:50
--- NOTE | 2023-10-02 16:51 | ECG_ITS ---
The [facility] Test Date: 2023-10-02 Pat Name: JENNIFER BROWN Department: Room: - Gender: Female L D Rn: : 1940 Requested By: Order Number: [id number] Reading MD: TAPAN ABEBE Measurements Intervals [place] Rate: 55 P: 58 UT: 150 QRS: 63 QRSD: 70 T: 73 QT: 422 QTc: 412 Interpretive Statements 1100 Sinus bradycardia 8102 Low QRS voltage in chest leads 9120 atypical ECG Electronically Signed On 10-02-2023 22:47:15 EDT by TAPAN ABEBE
--- NOTE | 2023-10-02 16:51 | XR_ITS ---
The [address] [address] Patient Name: JENNIFER BROWN MRN: [id number] date: 1940 Sex: F Assigned Patient Location: ER Current Patient Location: ER Accession/Order Number: [id number] Exam Date: 10/02/2023 17:38 Report Date: 10/02/2023 18:44 At the request of: PERLA JACKSON Procedure: XR chest 1V EXAM: XR chest 1V at 1732 hours HISTORY: Dizzy COMPARISON: 08/29/2022 TECHNIQUE: AP upright portable chest x-ray FINDINGS: The heart is not enlarged and the vasculature is not distended. The left lung base is now clear. No acute infiltrate, effusion or pneumothorax is identified. The osseous structures are grossly intact. XR/XR chest 1V IMPRESSION: No acute infiltrate or evidence of cardiac decompensation. Except for clearing of the left lung base, the overall appearance is unchanged. Electronically authenticated by: VARINDER BARBOSA Date: 10/02/2023 18:44
[2023-10-02 17:15] LABS: Basophils Absolute Auto 0.1 10^3/uL (0.0-0.1); Basophils Percent Auto 0.6 % (0.2-2.0); Eosinophils Absolute Auto 0.2 10^3/uL (0.0-0.7); Eosinophils Percent Auto 1.8 % (0.9-7.0); Hemoglobin 14.4 g/dL (12.0-16.0); Immature Granulocytes Abs Auto 0.03 10^3/uL (0.00-0.03); Immature Granulocytes Pct Auto 0.3 % (0.0-0.5); Lymphocytes Absolute Auto 3.2 10^3/uL (1.2-3.8); Lymphocytes Percent Auto 27.6 % (20.5-60.0); Mean Corpuscular HGB Conc 32.7 g/dL (29.9-35.2); Mean Corpuscular Hemoglobin 32.1 pg (26.7-34.0); Mean Platelet Volume 10.5 fL (9.5-13.5); Monocytes Absolute Auto 1.1 10^3/uL (0.3-0.8); Monocytes Percent Auto 9.5 % (1.7-12.0); Neutrophils Absolute Auto 6.9 10^3/uL (1.4-6.5); Neutrophils Percent Auto 60.2 % (43.0-75.0); Platelet Count 313 10^3/uL (150-450); Red Blood Count 4.49 10^6/uL (4.20-5.40); Red Cell Distribution Width 13.2 % (11.0-15.0); White Blood Count 11.5 10^3/uL (4.0-11.0)
--- NOTE | 2023-10-02 17:29 | ED.GENADUL1 ---
HPI HPI - General Adult General Chief complaint: Dizziness Stated complaint: DIZZINESS, CLINIC REFERRAL Time Seen by Provider: 10/02/23 16:35 Source: patient Mode of arrival: walk-in Limitations: no limitations History of Present Illness HPI narrative: Is an 82-year-old female with a history of heart attack and stroke 1 year ago who presents to the emergency department for worsening dizziness over the last several days. She states she had strong smelling urine last week and was seen at her urologist office, she was initially placed on Bactrim but she felt like that makes her chronic dizziness worse, she was told to stop the Bactrim and was given Macrobid, she states she had the same increase in dizziness. She states she just seems to be more dizzy than normal although she is able to ambulate. She denies headache, new visual loss or peripheral paresthesias. She has no chest pain, shortness of breath, upper respiratory symptoms or vomiting. She states her urologist sent her to the ER. Related Data Home Medications ?Medication ?Instructions ?Recorded ?Confirmed droxidopa 200 mg capsule 200 mg PO TID 08/29/22 10/02/23 ropinirole 0.25 mg tablet 0.25 mg PO .at bedtime 08/29/22 10/02/23 apixaban 5 mg tablet (Eliquis) 5 mg PO Q12H 10/02/23 10/02/23 clopidogrel 75 mg tablet 75 mg PO DAILY 10/02/23 10/02/23 ezetimibe 10 mg tablet 10 mg PO DAILY 10/02/23 10/02/23 levothyroxine 25 mcg tablet 25 mcg PO DAILY 10/02/23 10/02/23 losartan 25 mg tablet 25 mg PO DAILY 10/02/23 10/02/23 metformin 500 mg tablet 500 mg PO DAILY 10/02/23 10/02/23 metoprolol succinate 100 mg 100 mg PO DAILY 10/02/23 10/02/23 tablet,extended release 24 hr Previous Rx's ?Medication ?Instructions ?Recorded cephalexin 500 mg capsule 500 mg PO BID 5 days #10 caps 10/02/23 Allergies Allergy/AdvReac Type Severity Reaction Status Date / Time Penicillins Allergy Intermediate Verified 08/29/22 23:44 teramician Allergy Intermediate Uncoded 08/29/22 23:44 Opioid HPI Opioid Management Most Recent Opioid Data: Last Pain Scale 0 06/07/23 06:00 Review of Systems ROS Constitutional Denies: fever or chills Ears, nose, mouth, and throat Denies: throat pain or nasal congestion Cardiovascular Denies: chest pain Respiratory Denies: shortness of breath Gastrointestinal Denies: abdominal pain, nausea or vomiting Integumentary/Breast Denies: rash Neurological Reports: dizziness; Denies: headache, numbness in extremities or weakness in extremities Hematologic/Lymphatic Denies: easy bruising or easy bleeding PFSH PFS Medical History Surgical History Social History Within the past year, how often did you have a drink containing alcohol: never Score interpretation: A score less than 3 is consistent with normal alcohol consumption. 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 Known occupational exposures/hazards: No Highest level of school completed/degree received: high school graduate Are you now , , , , never or living with a partner: In a typical week, how many times do you talk on the telephone with family, friends, or neighbors: 3 or more times per week How often do you get together with friends or relatives: 3 or more times per week Little interest or pleasure in doing things: not at all Feeling down, depressed, or hopeless: not at all Feel stressed/tense/nervous/anxious/difficulty sleeping: not at all Life stressors: recent of family or friend Life stressor details: 3 years ago Due to disability, difficulty making decisions: No Do you think of yourself as: straight/heterosexual Gender Identity: female Exam Narrative Exam Narrative: Gen.: Awake, alert, in no distress Head: Normocephalic, atraumatic ENT: Moist mucous membranes, Bilateral TMs clear Respiratory: No respiratory distress, lungs clear bilaterally Cardio: Regular rate and rhythm Gastrointestinal: Abdomen is soft, nondistended and nontender to palpation Extremities: Moves extremities equally Psych: Normal mood and affect Neuro: No focal neuro deficit Skin: Warm, dry, intact Constitutional Vital Signs, click to edit/add: Last Vital Signs Temp 98 F 07/09/24 19:38 Pulse 64 10/02/23 19:38 Resp 14 10/02/23 19:38 BP 160/88 H 10/02/23 19:38 Pulse Ox 99 10/02/23 19:38 O2 Del Method Room Air 10/02/23 19:38 Course Vital Signs Vital signs: Vital Signs Temperature 98.0 F 10/02/23 16:35 Pulse Rate 62 10/02/23 16:35 Respiratory Rate 18 10/02/23 16:35 Blood Pressure 180/82 H 10/02/23 16:35 Pulse Oximetry 100 10/02/23 16:35 Oxygen Delivery Method Room Air 10/02/23 16:35 Temperature 98 F 10/02/23 19:38 Pulse Rate 64 10/02/23 19:38 Respiratory Rate 14 10/02/23 19:38 Blood Pressure 160/88 H 10/02/23 19:38 Pulse Oximetry 99 10/02/23 19:38 Oxygen Delivery Method Room Air 10/02/23 19:[address] [facility] Narrative Medical decision making narrative: CT of the brain is unremarkable, chest x-ray is stable and labs show the patient has elevated TSH and mild urinary tract infection. She was able to ambulate in the ER with no difficulty. She is eager for discharge. She will be placed on a short course of Keflex to follow-up with PCP for reevaluation of her thyroid studies and return to the ER if symptoms change or worsen SUPERVISED APC VISIT, PHYSICIAN ATTESTATION: Based on the medical record the care appears appropriate. ? Medical Records Medical records reviewed: Yes I reviewed the patient's medical records Lab Data Lab results reviewed: Yes I reviewed the patient's lab results Labs: Lab Results 10/02/23 10/02/23 Range/Units 17:00 17:40 WBC 11.5 H (4.0-11.0) 10^3/uL RBC 4.49 (4.20-5.40) 10^6/uL Hgb 14.4 (12.0-16.0) g/dL Hct 44.0 (36.0-48.0) % MCV 98.0 (81.0-99.0) fL MCH 32.1 (26.7-34.0) pg MCHC 32.7 (29.9-35.2) g/dL RDW 13.2 (11.0-15.0) % Plt Count 313 (150-450) 10^3/uL MPV 10.5 (9.5-13.5) fL Neut % (Auto) 60.2 (43.0-75.0) % Lymph % (Auto) 27.6 (20.5-60.0) % [place] % (Auto) 9.5 (1.7-12.0) % Eos % (Auto) 1.8 (0.9-7.0) % Baso % (Auto) 0.6 (0.2-2.0) % Neut # (Auto) 6.9 H (1.4-6.5) 10^3/uL Lymph # (Auto) 3.2 (1.2-3.8) 10^3/uL [place] # (Auto) 1.1 H (0.3-0.8) 10^3/uL Eos # (Auto) 0.2 (0.0-0.7) 10^3/uL Baso # (Auto) 0.1 (0.0-0.1) 10^3/uL Abs Immat Gran (auto) 0.03 (0.00-0.03) 10^3/uL Imm/Tot Granulo (auto) 0.3 (0.0-0.5) % PT 10.9 (9.0-11.6) sec INR 1.03 Sodium 137 (136-145) mmol/L Potassium 4.5 (3.5-5.1) mmol/L Chloride 103 (98-107) mmol/L Carbon Dioxide 27.0 (21.0-32.0) mmol/L Anion Gap 11.5 BUN 27.0 H (7.0-18.0) mg/dL Creatinine 1.25 H (0.55-1.02) mg/dL Est GFR ( Amer) 50 L (>=60) Est GFR (Non-Af Amer) 41 L (>=60) BUN/Creatinine Ratio 21.6 Glucose 114 H (74-106) mg/dL Lactate 0.8 (0.4-2.0) mmol/L Calcium 9.5 (8.5-10.1) mg/dL Total Bilirubin 0.3 (0.2-1.0) mg/dL AST 19 (15-37) U/L ALT 24 (14-59) U/L Alkaline Phosphatase 91 (46-116) U/L Troponin I High Sens 6.9 (4.0-51.3) pg/mL Total Protein 9.2 H (6.4-8.2) g/dL Albumin 4.1 (3.4-5.0) g/dL Globulin 5.1 g/dL Albumin/Globulin Ratio 0.8 TSH 6.705 H (0.358-3.740) uIU/mL Free T4 0.97 (0.76-1.46) ng/dL Free T3 2.44 (2.18-3.98) pg/mL Urine Color Lt. yellow (YELLOW) Urine Clarity Clear (CLEAR) Urine pH 6.0 (5.0-9.0) Ur Specific [place] 1.025 (1.005-1.025) Urine Protein Negative (NEG/TRACE) mg/dL Urine Glucose (UA) Negative (NEGATIVE) mg/dL Urine Ketones Trace A (NEGATIVE) mg/dL Urine Occult Blood Small A (NEGATIVE) Urine Nitrite Negative (NEGATIVE) Urine Bilirubin Negative (NEGATIVE) Urine Urobilinogen 0.2 (0.2-1.0) EU/dL Ur Leukocyte Esterase Small A (NEGATIVE) Urine RBC 5-10 A (0-2) #/HPF Urine WBC 5-10 A (NONE SEEN) #/HPF Ur Squamous Epith Cells Rare (NONE/RARE) #/LPF Urine Crystals None seen (None Seen) #/HPF Urine Bacteria Trace A (NONE SEEN) #/HPF Urine Casts None seen (NONE SEEN) #/LPF Urine Mucus None seen (NONE SEEN) Ur Culture Indicated? Yes Imaging Data CT scan - head: Attestation: I have reviewed the pertinent imaging results. Radiologist's impression: ITS Impressions Chest X-Ray 10/02/23 16:51 IMPRESSION: No acute infiltrate or evidence of cardiac decompensation. Except for clearing of the left lung base, the overall appearance is unchanged. Electronically authenticated by: VARINDER BARBOSA Date: 10/02/2023 18:[address] 10/02/23 16:51 IMPRESSION: Electronically authenticated by: VARINDER BARBOSA Date: 10/02/2023 18:50 ADDENDUM: 10/02/23 1909 IMPRESSION: There is no evidence of an intracranial hemorrhage, mass lesion or apparent acute infarct. Mild or early atrophy is noted. Diminished attenuation in the deep white matter indicates small vessel ischemic changes. The paranasal sinuses are clear. There is no apparent acute skull fracture. The overall appearance is unchanged. Original Report EXAM: CT head/brain wo con HISTORY: Dizzy COMPARISON: None. TECHNIQUE: FINDINGS: IMPRESSION: Electronically authenticated by: VARINDER BARBOSA Date: 10/02/2023 19:06 ECG Data Attestation: I personally reviewed and interpreted this ECG as follows: (Sinus rhythm at a rate of 55, no acute ST elevation or ectopy. EKG reviewed by attending physician) Discharge Plan Discharge Stand Alone Forms: Portal Instructions Chief Complaint: Dizziness Clinical Impression: Dizziness, Elevated TSH, Acute UTI Patient Disposition: Home, Self-Care Time of Disposition Decision: 19:47 Condition: Good Prescriptions / Home Meds: New cephalexin 500 mg capsule 500 mg PO BID 5 Days Qty: 10 0RF No Action droxidopa 200 mg capsule 200 mg PO TID ropinirole 0.25 mg tablet 0.25 mg PO .at bedtime Eliquis 5 mg tablet 5 mg PO Q12H clopidogrel 75 mg tablet 75 mg PO DAILY ezetimibe 10 mg tablet 10 mg PO DAILY levothyroxine 25 mcg tablet 25 mcg PO DAILY losartan 25 mg tablet 25 mg PO DAILY metformin 500 mg tablet 500 mg PO DAILY metoprolol succinate 100 mg tablet extended release 24 hr 100 mg PO DAILY Print Language: Palauan Instructions: Urinary Tract Infection in Women (ED), Dizziness (ED) Referrals: Physician,Non-Staff, MD [Primary Care Provider] - 1 week
[2023-10-02 17:30] VITALS: PULSE 55
[2023-10-02 17:30] LABS: INR 1.03; Prothrombin Time 10.9 sec (9.0-11.6)
[2023-10-02 17:32] LABS: Lactate/Lactic Acid 0.8 mmol/L (0.4-2.0)
[2023-10-02 17:39] LABS: Alanine Aminotransferase 24 U/L (14-59); Albumin Globulin Ratio 0.8; Albumin Level 4.1 g/dL (3.4-5.0); Alkaline Phosphatase 91 U/L (46-116); Anion Gap 11.5; Aspartate Amino Transferase 19 U/L (15-37); BUN Creatinine Ratio 21.6; Bilirubin Total 0.3 mg/dL (0.2-1.0); Calcium 9.5 mg/dL (8.5-10.1); Chloride 103 mmol/L (98-107); Estimated GFR (African America 50 (>=60); Estimated GFR (Non-African Ame 41 (>=60); Globulin 5.1 g/dL; Glucose 114 mg/dL (74-106); Potassium 4.5 mmol/L (3.5-5.1); Sodium 137 mmol/L (136-145); Thyroid Stimulating Hormone 6.705 uIU/mL (0.358-3.740); Total Protein 9.2 g/dL (6.4-8.2); Troponin I High Sensitivity 6.9 pg/mL (4.0-51.3)
[2023-10-02 17:52] LABS: Bilirubin Urine NEGATIVE (NEGATIVE); Blood Urine SMALL (NEGATIVE); Clarity Urine CLEAR (CLEAR); Color Urine LT. YELLOW (YELLOW); Glucose Urine UA NEGATIVE (NEGATIVE); Ketones Urine TRACE mg/dL (NEGATIVE); Leukocyte Esterase Urine SMALL (NEGATIVE); Nitrite Urine NEGATIVE (NEGATIVE); Protein Urine NEGATIVE (NEG/TRACE); Specific Gravity Urine 1.025 (1.005-1.025); Urobilinogen Urine 0.2 EU/dL (0.2-1.0)
[2023-10-02 17:54] LABS: Urine Microscopic Indicated YES
[2023-10-02 18:04] LABS: Free T4 0.97 ng/dL (0.76-1.46)
[2023-10-02 18:05] LABS: Bacteria Urine TRACE #/HPF (NONE SEEN); Crystals Seen? None Seen #/HPF (None Seen); Mucus Urine NONE SEEN (NONE SEEN); Squamous Epithelial Cell Urine RARE #/LPF (NONE/RARE)
[2023-10-02 18:06] LABS: Cast Seen? NONE SEEN #/LPF (NONE SEEN); Urine Culture Indicated YES
[2023-10-02] MEDS: 0.9 % SODIUM CHLORIDE 1,000 ML 1000 ML IV (18:08)
[2023-10-02 18:11] LABS: Free T3 2.44 pg/mL (2.18-3.98)
[2023-10-02 19:38] VITALS: BP 160/88; PULSE 64; TEMP 36.6; O2SAT 99
== END 2023-10-02 19:55 | disposition home or self-care (01) ==
PROVIDERS: Physician Assistant; Emergency Provider Emergency Medicine
DX: R42 Dizziness and giddiness (principal); N39.0 Urinary tract infection, site not specified; I25.2 Old myocardial infarction; Z86.73 Personal history of transient ischemic attack (TIA), and cerebral infarction without residual deficits; Z63.4 Disappearance and death of family member; Z79.899 Other long term (current) drug therapy
CPT/HCPCS: 36415; 70450; 71045; 80053; 81001; 83605; 84439; 84443; 84481; 84484; 85025; 85610; 87086; 93005; 99285

== ENCOUNTER 2023-10-27 10:48 | Observation (INO) | payer MEDICARE, SELFPAY ==
[2023-10-27] VITALS (35 sets, daily range): BP systolic 126–166; BP diastolic 47–68; PULSE 59–68; TEMP 36.7–37.1; O2SAT 93–99; BMI 25.8
--- NOTE | 2023-10-27 11:01 | ECG_ITS ---
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
--- NOTE | 2023-10-27 11:02 | CT_ITS ---
The [address] [address] Patient Name: JENNIFER BROWN MRN: [id number] date: 1940 Sex: F Assigned Patient Location: ER Current Patient Location: ER Accession/Order Number: [id number] Exam Date: 10/27/2023 11:59 Report Date: 10/27/2023 12:50 At the request of: CHRISTELLE BOOTH Procedure: CT head/brain wo con EXAM: CT head/brain wo con HISTORY: dizzy COMPARISON: CT brain 10/02/2023. TECHNIQUE: Axial CT scans through the head were obtained without IV contrast administration. Dose reduction techniques were achieved by using: automated exposure control and/or adjustment of mA and /or kV according to patient size and/or use of iterative reconstruction technique. FINDINGS: There is no evidence of acute intracranial hemorrhage or abnormal extra-axial fluid collection. No mass effect or midline shift is seen. There is no evidence of large acute territorial infarction. There is no hydrocephalus. There is mild age appropriate cerebral atrophy with frontal predominance. Mild decreased attenuation of the supratentorial white matter, likely represents chronic microvascular ischemia. To the limit of CT, the posterior fossa appears unremarkable. There are atherosclerotic calcifications of bilateral V4 segment of vertebral arteries. No definite acute fracture is identified. Soft tissues are unremarkable. The visualized orbits show no abnormality. The visualized paranasal sinuses show no air-fluid level. Mastoid air cells are clear. CT/CT head/brain wo con IMPRESSION: No CT evidence of acute intracranial abnormality. If there is sufficient clinical concern for acute ischemia, consider MRI for further evaluation. Stable chronic findings, as described above. Electronically authenticated by: DARRIAN ALVESU Date: 10/27/2023 12:50
--- NOTE | 2023-10-27 11:02 | XR_ITS ---
The [address] [address] Patient Name: JENNIFER BROWN MRN: [id number] date: 1940 Sex: F Assigned Patient Location: ER Current Patient Location: ED.MAIN Accession/Order Number: [id number] Exam Date: 10/27/2023 11:59 Report Date: 10/27/2023 13:45 At the request of: CHRISTELLE BOOTH Procedure: XR chest 1V EXAMINATION: XR chest 1V, 10/27/2023 11:59 AM EDT HISTORY: dizzy COMPARISON: 10/02/2023 TECHNIQUE: AP portable view of the chest performed. FINDINGS: Medical devices: None. Cardiomediastinal silhouette is within normal limits. The lungs are clear. No large pleural effusion, or pneumothorax. XR/XR chest 1V IMPRESSION: 1. No acute cardiopulmonary abnormality. Electronically authenticated by: SOLITARIO DUENAS Date: 10/27/2023 13:45
--- NOTE | 2023-10-27 11:04 | ED.GENADUL1 ---
HPI HPI - General Adult General Chief complaint: Dizziness Stated complaint: LIGHT HEADEDNESS,DIFFICULTY WALKING Time Seen by Provider: 10/27/23 10:50 Source: patient Mode of arrival: Wheelchair History of Present Illness HPI narrative: 83-year-old female presents for dizziness. Around midnight she became nauseous and then about 6 AM she developed this dizziness. She feels like she is spinning. She has a headache at the top of her head, no trauma. She is on Eliquis and Plavix. No fever or localized weakness or difficulty with her speech. Both eyes seem a bit blurry. Related Data Home Medications ?Medication ?Instructions ?Recorded ?Confirmed droxidopa 200 mg capsule 200 mg PO TID 08/29/22 10/27/23 ropinirole 0.25 mg tablet 0.25 mg PO .at bedtime 08/29/22 10/27/23 apixaban 5 mg tablet (Eliquis) 5 mg PO Q12H 10/02/23 10/27/23 clopidogrel 75 mg tablet 75 mg PO DAILY 10/02/23 10/27/23 ezetimibe 10 mg tablet 10 mg PO DAILY 10/02/23 10/27/23 levothyroxine 25 mcg tablet 25 mcg PO DAILY 10/02/23 10/27/23 metformin 500 mg tablet 500 mg PO DAILY 10/02/23 10/27/23 metoprolol succinate 100 mg 100 mg PO DAILY 10/02/23 10/27/23 tablet,extended release 24 hr cephalexin 250 mg capsule 250 mg PO .2 times a week 10/27/23 10/27/23 Allergies Allergy/AdvReac Type Severity Reaction Status Date / Time Penicillins Allergy Intermediate Verified 08/29/22 23:44 teramician Allergy Intermediate Uncoded 08/29/22 23:44 Opioid HPI Opioid Management Most Recent Opioid Data: Last Pain Scale 0 08/30/22 06:00 Last ED Pain Assessment 10/27/23 11:02 Review of Systems ROS Narrative A ten point review of systems is negative except as noted above. PFSH PFSH Medical History Surgical History Social History Within the past year, how often did you have a drink containing alcohol: never Score interpretation: A score less than 3 is consistent with normal alcohol consumption. 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 Known occupational exposures/hazards: No Highest level of school completed/degree received: high school graduate Are you now , , , , never or living with a partner: In a typical week, how many times do you talk on the telephone with family, friends, or neighbors: 3 or more times per week How often do you get together with friends or relatives: 3 or more times per week Little interest or pleasure in doing things: not at all Feeling down, depressed, or hopeless: not at all Feel stressed/tense/nervous/anxious/difficulty sleeping: not at all Life stressors: recent of family or friend Life stressor details: 3 years ago Due to disability, difficulty making decisions: No Do you think of yourself as: straight/heterosexual Gender Identity: female Exam Narrative Exam Narrative: Nurses note and vital signs reviewed and patient is not hypoxic. General: The patient appears in no apparent distress. Patient is resting comfortably on cart. Skin: Warm, dry, no pallor noted. There is no rash noted. Head: Normocephalic, atraumatic Eye: Normal conjunctiva, no drainage, EOMI. PERRL Ears, Nose, Mouth, and Throat: oral mucosa is moist. Nares patent. Cardiovascular: Regular Rate and Rhythm Respiratory: Patient is in no distress, no accessory muscle use, lungs are clear to auscultation, no wheezing, rales or rhonchi Back: non-tender GI: Soft and nontender Musculoskeletal: The patient has no evidence of calf tenderness, no pitting edema, symmetrical pulses noted bilaterally Neurological: Awake alert and oriented. Upper and lower extremity strength intact and symmetric. Cranial nerves II through XII intact. Psychiatric: Cooperative Constitutional Vital Signs, click to edit/add: Last Vital Signs Temp 98.7 F 10/27/23 10:54 Pulse 64 10/27/23 13:26 Resp 12 10/27/23 13:10 BP 152/61 H 10/27/23 13:26 Pulse Ox 98 10/27/23 13:26 O2 Del Method Room Air 10/27/23 11:02 Course Vital Signs Vital signs: Vital Signs Temperature 98.7 F 10/27/23 10:54 Pulse Rate 66 10/27/23 10:54 Respiratory Rate 18 10/27/23 10:54 Blood Pressure 166/63 H 10/27/23 10:54 Pulse Oximetry 99 10/27/23 10:54 Oxygen Delivery Method Room Air 10/27/23 10:54 Temperature 98.7 F 10/27/23 10:54 Pulse Rate 64 10/27/23 13:26 Respiratory Rate 12 10/27/23 13:10 Blood Pressure 152/61 H 10/27/23 13:26 Pulse Oximetry 98 10/27/23 13:26 Oxygen Delivery Method Room Air 10/27/23 11:02 Medical Decision Making MDM Narrative Medical decision making narrative: CAT scan is negative. The patient is concerned she had another stroke and should be admitted for observation. She has no motor or sensory deficits. Stroke score is 0. Findings are discussed with the patient. Differential Diagnosis Differential Diagnosis: Vertigo, stroke, intracranial hemorrhage Lab Data Lab results reviewed: Yes I reviewed the patient's lab results Labs: Lab Results 10/27/23 10/27/23 Range/Units 11:12 13:15 WBC 18.1 H (4.0-11.0) 10^3/uL RBC 4.44 (4.20-5.40) 10^6/uL Hgb 14.3 (12.0-16.0) g/dL Hct 42.7 (36.0-48.0) % MCV 96.2 (81.0-99.0) fL MCH 32.2 (26.7-34.0) pg MCHC 33.5 (29.9-35.2) g/dL RDW 12.9 (11.0-15.0) % Plt Count 271 (150-450) 10^3/uL MPV 10.7 (9.5-13.5) fL Neut % (Auto) 86.6 H (43.0-75.0) % Lymph % (Auto) 6.7 L (20.5-60.0) % [place] % (Auto) 6.0 (1.7-12.0) % Eos % (Auto) 0.1 L (0.9-7.0) % Baso % (Auto) 0.2 (0.2-2.0) % Neut # (Auto) 15.6 H (1.4-6.5) 10^3/uL Lymph # (Auto) 1.2 (1.2-3.8) 10^3/uL [place] # (Auto) 1.1 H (0.3-0.8) 10^3/uL Eos # (Auto) 0.0 (0.0-0.7) 10^3/uL Baso # (Auto) 0.0 (0.0-0.1) 10^3/uL Abs Immat Gran (auto) 0.07 H (0.00-0.03) 10^3/uL Imm/Tot Granulo (auto) 0.4 (0.0-0.5) % Sodium 134 L (136-145) mmol/L Potassium 4.2 (3.5-5.1) mmol/L Chloride 98 (98-107) mmol/L Carbon Dioxide 27.6 (21.0-32.0) mmol/L Anion Gap 12.6 BUN 18.0 (7.0-18.0) mg/dL Creatinine 1.25 H (0.55-1.02) mg/dL Est GFR ( Amer) 50 L (>=60) Est GFR (Non-Af Amer) 41 L (>=60) BUN/Creatinine Ratio 14.4 Glucose 126 H (74-106) mg/dL Calcium 9.5 (8.5-10.1) mg/dL Troponin I High Sens 7.5 (4.0-51.3) pg/mL Urine Color Lt. yellow (YELLOW) Urine Clarity Clear (CLEAR) Urine pH 7.0 (5.0-9.0) Ur Specific [place] <=1.005 A (1.005-1.025) Urine Protein Negative (NEG/TRACE) mg/dL Urine Glucose (UA) Negative (NEGATIVE) mg/dL Urine Ketones Negative (NEGATIVE) mg/dL Urine Occult Blood Moderate A (NEGATIVE) Urine Nitrite Negative (NEGATIVE) Urine Bilirubin Negative (NEGATIVE) Urine Urobilinogen 0.2 (0.2-1.0) EU/dL Ur Leukocyte Esterase Small A (NEGATIVE) Urine RBC 0-2 (0-2) #/HPF Urine WBC 5-10 A (NONE SEEN) #/HPF Ur Squamous Epith Cells Rare (NONE/RARE) #/LPF Urine Crystals None seen (None Seen) #/HPF Urine Bacteria Moderate A (NONE SEEN) #/HPF Urine Casts None seen (NONE SEEN) #/LPF Urine Mucus None seen (NONE SEEN) Ur Culture Indicated? Yes Imaging Data CT scan - head: Radiologist's impression: ITS Impressions Chest X-Ray 10/27/23 11:02 IMPRESSION: 1. No acute cardiopulmonary abnormality. Electronically authenticated by: SOLITARIO DUENAS Date: 10/27/2023 13:[address] 10/27/23 11:02 IMPRESSION: No CT evidence of acute intracranial abnormality. If there is sufficient clinical concern for acute ischemia, consider MRI for further evaluation. Stable chronic findings, as described above. Electronically authenticated by: DARRIAN COTTER Date: 10/27/2023 12:50 ECG Data Attestation: I personally reviewed and interpreted this ECG as follows: (EKG on my interpretation shows sinus rhythm without acute change) Discharge Plan Discharge Chief Complaint: Dizziness Clinical Impression: Dizziness Patient Disposition: Admitted as Observation Time of Disposition Decision: 14:22 Condition: Good
[2023-10-27 11:27] LABS: Basophils Percent Auto 0.2 % (0.2-2.0); Eosinophils Percent Auto 0.1 % (0.9-7.0); Hematocrit 42.7 % (36.0-48.0); Hemoglobin 14.3 g/dL (12.0-16.0); Immature Granulocytes Abs Auto 0.07 10^3/uL (0.00-0.03); Immature Granulocytes Pct Auto 0.4 % (0.0-0.5); Lymphocytes Absolute Auto 1.2 10^3/uL (1.2-3.8); Lymphocytes Percent Auto 6.7 % (20.5-60.0); Mean Corpuscular HGB Conc 33.5 g/dL (29.9-35.2); Mean Corpuscular Hemoglobin 32.2 pg (26.7-34.0); Mean Corpuscular Volume 96.2 fL (81.0-99.0); Mean Platelet Volume 10.7 fL (9.5-13.5); Monocytes Absolute Auto 1.1 10^3/uL (0.3-0.8); Neutrophils Absolute Auto 15.6 10^3/uL (1.4-6.5); Neutrophils Percent Auto 86.6 % (43.0-75.0); Platelet Count 271 10^3/uL (150-450); Red Blood Count 4.44 10^6/uL (4.20-5.40); Red Cell Distribution Width 12.9 % (11.0-15.0); White Blood Count 18.1 10^3/uL (4.0-11.0)
[2023-10-27 11:39] LABS: Anion Gap 12.6; BUN Creatinine Ratio 14.4; Calcium 9.5 mg/dL (8.5-10.1); Carbon Dioxide 27.6 mmol/L (21.0-32.0); Chloride 98 mmol/L (98-107); Estimated GFR (African America 50 (>=60); Estimated GFR (Non-African Ame 41 (>=60); Glucose 126 mg/dL (74-106); Potassium 4.2 mmol/L (3.5-5.1); Sodium 134 mmol/L (136-145)
[2023-10-27 11:47] LABS: Troponin I High Sensitivity 7.5 pg/mL (4.0-51.3)
[2023-10-27] MEDS: MECLIZINE HCL 12.5 MG TABLET 25 MG PO (13:22)
[2023-10-27 13:56] LABS: Bilirubin Urine NEGATIVE (NEGATIVE); Blood Urine MODERATE (NEGATIVE); Clarity Urine CLEAR (CLEAR); Color Urine LT. YELLOW (YELLOW); Glucose Urine UA NEGATIVE (NEGATIVE); Ketones Urine NEGATIVE (NEGATIVE); Leukocyte Esterase Urine SMALL (NEGATIVE); Nitrite Urine NEGATIVE (NEGATIVE); Protein Urine NEGATIVE (NEG/TRACE); Specific Gravity Urine <=1.005 (1.005-1.025); Urobilinogen Urine 0.2 EU/dL (0.2-1.0)
[2023-10-27 14:09] LABS: Bacteria Urine MODERATE #/HPF (NONE SEEN); Crystals Seen? None Seen #/HPF (None Seen); Mucus Urine NONE SEEN (NONE SEEN); RBC Urine 0-2 #/HPF (0-2); Squamous Epithelial Cell Urine RARE #/LPF (NONE/RARE)
[2023-10-27 14:10] LABS: Cast Seen? NONE SEEN #/LPF (NONE SEEN); Urine Culture Indicated YES
[2023-10-27 15:05] LABS: Estimated Average Glucose 117 mg/dL; Glycohemoglobin A1C 5.7 % (4.5-6.2)
--- NOTE | 2023-10-27 15:24 | P.HP_ITS ---
HPI H&P: HPI History of Present Illness Chief complaint: LIGHT HEADEDNESS,DIFFICULTY WALKING; DIZZINESS Narrative: 83-year-old female with prior history of cerebrovascular accident, coronary artery disease with chronic longstanding dizziness/blurred vision from her previous stroke last year presented to ER earlier this morning with worsening dizziness, unsteady gait and generalized weakness. Patient reports that she was in her usual state of health when she woke up earlier today and felt extremely dizzy and nauseous. She went back to sleep and then woke up again to start her day and felt that she was still quite dizzy and weak overall. She also noticed that she was more unsteady and was barely able to ambulate using a walker. Workup in ED was unremarkable except for leukocytosis which likely is chronic and close to her baseline. Patient reports feeling a little bit better but is still feels weak and tired. She has no new neurological symptoms and denies neurological weakness/numbness. Neurological exam was completely normal with no evidence of nystagmus, neurological weakness/numbness. She also had no cerebellar signs. However given her history, it is not unreasonable to get an MRI to rule out acute posterior circulation stroke. CT head performed today was negative for any acute intracranial pathology. Patient is already on Plavix for coronary artery disease and uses Eliquis for stroke prophylaxis because of history of A-fib. Patient denies ear pain, upper respiratory symptoms. He also denies dysuria, polyuria or urinary symptoms Opioid HPI Opioid Management Most Recent Pain and Opioid Data: Last Pain Scale 0 08/30/22 06:00 Last ED Pain Assessment 10/27/23 11:02 Review of Systems ROS Status of ROS 10 or more systems reviewed and unremark able except as noted in history and below [facility] Medical History (Updated 10/27/23 @ 15:30 by Shaikh Shayne MD) CKD stage 2 due to type 2 diabetes mellitus ?E11.22 - Type 2 diabetes mellitus with diabetic chronic kidney disease (ICD- 10) ?N18.2 - Chronic kidney disease, stage 2 (mild) (ICD-10) Type 2 diabetes mellitus ?E11.9 - Type 2 diabetes mellitus without complications (ICD-10) HTN (hypertension) ?I10 - Essential (primary) hypertension (ICD-10) HLD (hyperlipidemia) ?E78.5 - Hyperlipidemia, unspecified (ICD-10) Afib ?I48.91 - Unspecified atrial fibrillation (ICD-10) Hypothyroid ?E03.9 - Hypothyroidism, unspecified (ICD-10) CAD (coronary artery disease) ?I25.10 - Atherosclerotic heart disease of [place] coronary artery without angina pectoris (ICD-10) CVA (cerebral vascular accident) ?I63.9 - Cerebral infarction, unspecified (ICD-10) History of heart attack ?I25.2 - Old myocardial infarction (ICD-10) Tremor ?R25.1 - Tremor, unspecified (ICD-10) Parkinson disease ?G20 - Parkinson's disease (ICD-10) Leukocytosis (leucocytosis) ?D72.829 - Elevated white blood cell count, unspecified (ICD-10) Pain in the abdomen ?R10.9 - Unspecified abdominal pain (ICD-10) Weakness ?R53.1 - Weakness (ICD-10) Dehydration ?E86.0 - Dehydration (ICD-10) Surgical History (Updated 10/27/23 @ 15:09 by Stephanie Romero RN) H/O heart artery stent ?Z95.5 - Presence of coronary angioplasty implant and graft (ICD-10) History of hysterectomy ?Z90.710 - Acquired absence of both cervix and uterus (ICD-10) Social History Within the past year, how often did you have a drink containing alcohol: never Score interpretation: A score less than 3 is consistent with normal alcohol consumption. 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 Known occupational exposures/hazards: No Highest level of school completed/degree received: high school graduate Are you now , , , , never or living with a partner: In a typical week, how many times do you talk on the telephone with family, friends, or neighbors: 3 or more times per week How often do you get together with friends or relatives: 3 or more times per week Little interest or pleasure in doing things: not at all Feeling down, depressed, or hopeless: not at all Feel stressed/tense/nervous/anxious/difficulty sleeping: not at all Life stressors: recent of family or friend Life stressor details: 3 years ago Due to disability, difficulty making decisions: No Do you think of yourself as: straight/heterosexual Gender Identity: female Meds Home Medications and Allergies Home Medications ?Medication ?Instructions ?Recorded ?Confirmed ?Type droxidopa 200 mg capsule 200 mg PO TID 08/29/22 10/27/23 History ropinirole 0.25 mg tablet 0.25 mg PO .at bedtime 08/29/22 10/27/23 History apixaban 5 mg tablet (Eliquis) 5 mg PO Q12H 10/02/23 10/27/23 History clopidogrel 75 mg tablet 75 mg PO DAILY 10/02/23 10/27/23 History ezetimibe 10 mg tablet 10 mg PO DAILY 10/02/23 10/27/23 History levothyroxine 25 mcg tablet 25 mcg PO DAILY 10/02/23 10/27/23 History metformin 500 mg tablet 500 mg PO DAILY 10/02/23 10/27/23 History metoprolol succinate 100 mg 100 mg PO DAILY 10/02/23 10/27/23 History tablet,extended release 24 hr cephalexin 250 mg capsule 250 mg PO .2 times a week 10/27/23 10/27/23 History losartan 25 mg tablet 25 mg PO DAILY 10/27/23 10/27/23 History Allergies Allergy/AdvReac Type Severity Reaction Status Date / Time Penicillins Allergy Intermediate Verified 08/29/22 23:44 teramician Allergy Intermediate Uncoded 08/29/22 23:44 Exam Constitutional Vital Signs, click to edit/add: Last Vital Signs Temp 98.7 F 10/27/23 10:54 Pulse 60 10/27/23 14:30 Resp 12 10/27/23 13:10 BP 147/55 H 10/27/23 14:30 Pulse Ox 98 10/27/23 14:30 O2 Del Method Room Air 10/27/23 11:02 Documenting provider has reviewed patient's vital signs: yes Common normals: no apparent distress and oriented x3 General appearance: cooperative HENMT Common normals: normocephalic and head/scalp atraumatic Head and scalp: normocephalic and atraumatic Eye Common normals: conjunctivae normal and no scleral icterus Conjunctiva: conjunctiva(e) normal Respiratory Common normals: normal respiratory effort and clear to auscultation bilaterally Effort & inspection: able to speak in complete sentences Auscultation: clear to auscultation bilaterally Cardio Common normals: regular rate, S1 normal heart sound and S2 normal heart sound Rate: regular rate Heart sounds: S1 normal and S2 normal GI Common normals: Normal to inspection, nondistended, normoactive bowel sounds present, soft to palpation, non-tender and no hepatosplenomegaly Palpation: soft and no hepatosplenomegaly Extremity Common normals: no clubbing, cyanosis or edema Neuro Common normals: oriented x3, moves all extremities and no focal motor deficits Psych Common normals: mental status grossly normal, denies hallucinations, denies homicidal ideation and denies suicidal ideation Results Labs Labs: Short CBC 10/27/23 Range/Units 11:12 WBC 18.1 H (4.0-11.0) 10^3/uL Hgb 14.3 (12.0-16.0) g/dL Hct 42.7 (36.0-48.0) % Plt Count 271 (150-450) 10^3/uL BMP 10/27/23 11:12 Sodium 134 L Potassium 4.2 Chloride 98 Carbon Dioxide 27.6 BUN 18.0 Creatinine 1.25 H Glucose 126 H Calcium 9.5 Urine 10/27/23 Range/Units 13:15 Urine Color Lt. yellow (YELLOW) Urine Clarity Clear (CLEAR) Urine pH 7.0 (5.0-9.0) Ur Specific [place] <=1.005 A (1.005-1.025) Urine Protein Negative (NEG/TRACE) mg/dL Urine Glucose (UA) Negative (NEGATIVE) mg/dL Assessment and Plan Assessment and Plan (1) Dizziness: Assessment and Plan: Presents with worsening dizziness along with blurred vision. She has chronic dizziness and blurred vision from her prior stroke last year. She has no other neurological symptoms. I have low suspicion for acute ischemic stroke but given her history, it is not unreasonable to repeat an MRI of her brain. MRI brain ordered. Will hold off further stroke workup until MRI confirms our suspicion. Continue with weekly monitoring. Continue with Plavix, Eliquis. (2) CAD (coronary artery disease): Assessment and Plan: Stable. Patient had percutaneous coronary intervention last year. On Plavix, Zetia and Toprol Qualifiers: Coronary Disease-Associated Artery/Lesion type: [place] artery [place] vs. transplanted heart: [place] heart Associated angina: without angina Qualified Code(s): I25.10 - Atherosclerotic heart disease of [place] coronary artery without angina pectoris (3) Hypothyroid: Assessment and Plan: Continue with levothyroxine Qualifiers: Hypothyroidism type: acquired Qualified Code(s): E03.9 - Hypothyroidism, unspecified (4) Afib: Assessment and Plan: Paroxysmal A-fib. In normal sinus rhythm currently. On Eliquis for stroke prophylaxis Qualifiers: Atrial fibrillation type: paroxysmal Qualified Code(s): I48.0 - Paroxysmal atrial fibrillation (5) HTN (hypertension): Assessment and Plan: Continue with home medications. Monitor. Qualifiers: Hypertension type: primary hypertension Qualified Code(s): I10 - Essential (primary) hypertension (6) Type 2 diabetes mellitus: Assessment and Plan: Metformin as outpatient. Will order adding scale insulin while inpatient Qualifiers: Diabetes mellitus medical terminologist insulin use: without medical terminologist use Diabetes mellitus complication status: with kidney complications Diabetes mellitus complication detail: with chronic kidney disease Chronic kidney disease stage: stage 2 (mild) Qualified Code(s): E11.22 - Type 2 diabetes mellitus with diabetic chronic kidney disease; N18.2 - Chronic kidney disease, stage 2 (mild) (7) CKD stage 2 due to type 2 diabetes mellitus: Assessment and Plan: Serum creatinine at baseline. Monitor. (8) HLD (hyperlipidemia): Assessment and Plan: Not on a statin. Continue with ezetimibe. Monitor. Qualifiers: Hyperlipidemia type: unspecified Qualified Code(s): E78.5 - Hyperlipidemia, unspecified
[2023-10-27] MEDS: LACTATED RINGER'S SOLUTION 1,000 ML 125 ML IV (16:35)
[2023-10-27 16:40] LABS: Chol HDL Ratio 3.6; Cholesterol 201 mg/dL (<=200); HDL Cholesterol 56 mg/dL (40-60); Thyroid Stimulating Hormone 2.257 uIU/mL (0.358-3.740); Triglycerides 205 mg/dL (<=150)
[2023-10-27] MEDS: ROPINIROLE HCL 0.25 MG TABLET PO (21:25)
[2023-10-27] MEDS: APIXABAN 5 MG TABLET PO (21:25)
[2023-10-28] VITALS (10 sets, daily range): BP systolic 123–167; BP diastolic 64–79; PULSE 60–73; TEMP 36.3–36.6; O2SAT 90–95
[2023-10-28] MEDS: LACTATED RINGER'S SOLUTION 1,000 ML 125 ML IV ×2 (00:36→08:20)
[2023-10-28] MEDS: LEVOTHYROXINE SODIUM 25 MCG TABLET PO (06:38)
[2023-10-28 07:23] LABS: Basophils Absolute Auto 0.1 10^3/uL (0.0-0.1); Basophils Percent Auto 0.6 % (0.2-2.0); Eosinophils Absolute Auto 0.1 10^3/uL (0.0-0.7); Eosinophils Percent Auto 1.6 % (0.9-7.0); Hematocrit 38.4 % (36.0-48.0); Hemoglobin 12.8 g/dL (12.0-16.0); Immature Granulocytes Abs Auto 0.03 10^3/uL (0.00-0.03); Immature Granulocytes Pct Auto 0.3 % (0.0-0.5); Lymphocytes Absolute Auto 1.9 10^3/uL (1.2-3.8); Lymphocytes Percent Auto 21.6 % (20.5-60.0); Mean Corpuscular HGB Conc 33.3 g/dL (29.9-35.2); Mean Platelet Volume 10.9 fL (9.5-13.5); Monocytes Absolute Auto 0.9 10^3/uL (0.3-0.8); Monocytes Percent Auto 10.5 % (1.7-12.0); Neutrophils Absolute Auto 5.8 10^3/uL (1.4-6.5); Neutrophils Percent Auto 65.4 % (43.0-75.0); Platelet Count 229 10^3/uL (150-450); Red Cell Distribution Width 12.9 % (11.0-15.0); White Blood Count 8.8 10^3/uL (4.0-11.0)
[2023-10-28 07:45] LABS: Alanine Aminotransferase 18 U/L (14-59); Albumin Globulin Ratio 0.8; Albumin Level 3.3 g/dL (3.4-5.0); Alkaline Phosphatase 64 U/L (46-116); Anion Gap 11.9; Aspartate Amino Transferase 17 U/L (15-37); Bilirubin Total 0.6 mg/dL (0.2-1.0); Calcium 8.9 mg/dL (8.5-10.1); Carbon Dioxide 26.1 mmol/L (21.0-32.0); Chloride 105 mmol/L (98-107); Estimated GFR (African America 60 (>=60); Estimated GFR (Non-African Ame 49 (>=60); Glucose 116 mg/dL (74-106); Sodium 139 mmol/L (136-145); Total Protein 7.3 g/dL (6.4-8.2)
[2023-10-28] MEDS: APIXABAN 5 MG TABLET PO (08:20)
[2023-10-28] MEDS: METOPROLOL SUCCINATE 100 MG TAB.ER.24H PO (08:20)
[2023-10-28] MEDS: EZETIMIBE 10 MG TABLET PO (08:20)
[2023-10-28] MEDS: CLOPIDOGREL BISULFATE 75 MG TABLET PO (08:20)
--- NOTE | 2023-10-28 09:25 | PM.DS1 ---
DS: Providers Provider Date of admission: 10/27/23 14:51 Primary care physician: Non-Staff Physician, Admitting clinician: Shaikh Shayne Attending physician on admission: Shaikh Shayne Consults: 10/27/23 14:19 Occupational Therapy Eval and Treat Routine Reason for consultation: Ambulatory dysfunction/weakness Physical Therapy Eval and Treat Routine Reason for consultation: Ambulatory dysfunction/weakness Attending physician on discharge: Shaikh Shayne Discharging clinician: Shaikh Shayne Anticipated date of discharge: 10/28/23 DS: Diagnosis Discharge Diagnosis (1) Dizziness: Assessment and plan: Improved from day of admission. Patient has chronic/persistent dizziness with blurred vision because of prior CVA last year. We had ordered an MRI brain for her to rule out new acute CVA but unfortunately because of the weekend we are unable to do that. Given that her symptoms are chronic and improved, I have low suspicion that she had acute CVA. She is medically stable for discharge and can follow-up with her PCP as outpatient. I would recommend outpatient MRI for her. (2) UTI (urinary tract infection): Assessment and plan: On chronic antibiotic prophylaxis for recurrent urinary tract infection. She uses cephalexin twice a week. Evidence of UTI on initial workup. Will discharge on oral Bactrim. Once she finishes her oral Bactrim, she can resume her oral Keflex for prophylaxis Qualifiers: Urinary tract infection type: acute cystitis Hematuria presence: without hematuria Qualified Code(s): N30.00 - Acute cystitis without hematuria (3) CAD (coronary artery disease): Assessment and plan: Plavix, ezetimibe. No evidence of acute cardiac ischemia. Follow-up as clinically indicated Qualifiers: Coronary Disease-Associated Artery/Lesion type: [place] artery [place] vs. transplanted heart: [place] heart Associated angina: without angina Qualified Code(s): I25.10 - Atherosclerotic heart disease of [place] coronary artery without angina pectoris (4) Hypothyroid: Assessment and plan: Continue with levothyroxine Qualifiers: Hypothyroidism type: acquired Qualified Code(s): E03.9 - Hypothyroidism, unspecified (5) Afib: Assessment and plan: On amiodarone and Eliquis. Currently in normal sinus rhythm Qualifiers: Atrial fibrillation type: paroxysmal Qualified Code(s): I48.0 - Paroxysmal atrial fibrillation (6) HTN (hypertension): Assessment and plan: Blood pressure at goal. Continue with home medications Qualifiers: Hypertension type: primary hypertension Qualified Code(s): I10 - Essential (primary) hypertension (7) Type 2 diabetes mellitus: Assessment and plan: Continue with metformin. Qualifiers: Diabetes mellitus intermediate insulin use: without intermediate use Diabetes mellitus complication status: with kidney complications Diabetes mellitus complication detail: with chronic kidney disease Chronic kidney disease stage: stage 2 (mild) Qualified Code(s): E11.22 - Type 2 diabetes mellitus with diabetic chronic kidney disease; N18.2 - Chronic kidney disease, stage 2 (mild) (8) CKD stage 2 due to type 2 diabetes mellitus: Assessment and plan: Renal function at baseline. Monitor (9) HLD (hyperlipidemia): Assessment and plan: Not on a statin likely because of intolerance. On ezetimibe. Follow-up as outpatient Qualifiers: Hyperlipidemia type: unspecified Qualified Code(s): E78.5 - Hyperlipidemia, unspecified DS: Summary Hospital Course Hospital Course: 83-year-old female with prior history of cerebrovascular accident, coronary artery disease with chronic longstanding dizziness/blurred vision from her previous stroke last year presented to ER with worsening dizziness, unsteady gait and generalized weakness. Patient reports that she was in her usual state of health when she woke up earlier today and felt extremely dizzy and nauseous. She went back to sleep and then woke up again to start her day and felt that she was still quite dizzy and weak overall. Workup in ED was unremarkable except for leukocytosis which likely is chronic along with urine tract infection. He was admitted for observation and started on IV fluids and IV Rocephin for UTI. Patient was seen earlier today and she felt better and more or less close to her baseline. Given that her symptoms are chronic and back to his baseline, it seems very unlikely that she had an acute ischemic event. She will still however benefit from getting an outpatient MRI. Patient is on Keflex chronically for prophylaxis. I will discharge her on oral Bactrim and she can resume her Keflex when she is done with oral Bactrim. Patient instructed to return to ED if her symptoms worsen. She was also instructed to follow-up with PCP in 1 to 2 weeks Status at Discharge Functional status at discharge: uses cane/walker Overall status at discharge: patient is back to baseline Time Spent with Patient Time attestation: Total time spent providing and/or coordinating discharge services: Time spent: greater than 30 minutes Exam Constitutional Vital Signs, click to edit/add: Last Vital Signs Temp 97.9 F 10/28/23 08:23 Pulse 60 10/28/23 08:23 Resp 18 10/28/23 08:23 BP 123/64 10/28/23 08:23 Pulse Ox 93 L 10/28/23 08:23 O2 Del Method Room Air 10/28/23 08:23 Documenting provider has reviewed patient's vital signs: yes Common normals: no apparent distress and oriented x3 General appearance: cooperative Eye Common normals: conjunctivae normal and no scleral icterus Conjunctiva: conjunctiva(e) normal Respiratory Common normals: normal respiratory effort and clear to auscultation bilaterally Effort & inspection: able to speak in complete sentences Auscultation: clear to auscultation bilaterally Cardio Common normals: regular rate, S1 normal heart sound and S2 normal heart sound Rate: regular rate Heart sounds: S1 normal and S2 normal Extremity Common normals: no clubbing, cyanosis or edema Neuro Common normals: oriented x3, moves all extremities and no focal motor deficits Sensorium/orientation: awake, alert, oriented to person, oriented to place and oriented to time Coordination/balance: [id number]-[id number] test normal and [id number]-hm-[id number] test normal Speech: speech normal Motor exam: strength 5/5 throughout Coordination: gdjzsh-[id number] test normal and tgur-cd-pokm test normal Psych Common normals: mental status grossly normal, denies hallucinations, denies homicidal ideation and denies suicidal ideation DS: Data Data Completed and Pending Labs on day of discharge: Labs from last 24 hours 10/28/23 10/27/23 10/27/23 06:50 13:15 11:12 WBC 8.8 18.1 H RBC 4.00 L 4.44 Hgb 12.8 14.3 Hct 38.4 42.7 MCV 96.0 96.2 MCH 32.0 32.2 MCHC 33.3 33.5 RDW 12.9 12.9 Plt Count 229 271 MPV 10.9 10.7 Neut % (Auto) 65.4 86.6 H Lymph % (Auto) 21.6 6.7 L [place] % (Auto) 10.5 6.0 Eos % (Auto) 1.6 0.1 L Baso % (Auto) 0.6 0.2 Neut # (Auto) 5.8 15.6 H Lymph # (Auto) 1.9 1.2 [place] # (Auto) 0.9 H 1.1 H Eos # (Auto) 0.1 0.0 Baso # (Auto) 0.1 0.0 Abs Immat Gran (auto) 0.03 0.07 H Imm/Tot Granulo (auto) 0.3 0.4 Sodium 139 134 L Potassium 4.0 4.2 Chloride 105 98 Carbon Dioxide 26.1 27.6 Anion Gap 11.9 12.6 BUN 15.0 18.0 Creatinine 1.07 H 1.25 H Est GFR ( Amer) 60 50 L Est GFR (Non-Af Amer) 49 L 41 L BUN/Creatinine Ratio 14.0 14.4 Glucose 116 H 126 H Estimat Average Glucose 117 Hemoglobin A1c 5.7 Calcium 8.9 9.5 Total Bilirubin 0.6 AST 17 ALT 18 Alkaline Phosphatase 64 Troponin I High Sens 7.5 Total Protein 7.3 Albumin 3.3 L Globulin 4.0 Albumin/Globulin Ratio 0.8 Triglycerides 205 H Cholesterol 201 H LDL Cholesterol, Calc 104.0 VLDL Cholesterol 41.0 HDL Cholesterol 56 Cholesterol/HDL Ratio 3.6 TSH 2.257 Urine Color Lt. yellow Urine Clarity Clear Urine pH 7.0 Ur Specific [place] <=1.005 A Urine Protein Negative Urine Glucose (UA) Negative Urine Ketones Negative Urine Occult Blood Moderate A Urine Nitrite Negative Urine Bilirubin Negative Urine Urobilinogen 0.2 Ur Leukocyte Esterase Small A Urine RBC 0-2 Urine WBC 5-10 A Ur Squamous Epith Cells Rare Urine Crystals None seen Urine Bacteria Moderate A Urine Casts None seen Urine Mucus None seen Ur Culture Indicated? Yes Discharge Plan Discharge Disposition: Home, Self-Care Condition: Good Discharge Medications: New sulfamethoxazole-trimethoprim [Bactrim DS] 800-160 mg tablet 1 tab PO BID Qty: 14 0RF Continued droxidopa 200 mg capsule 200 mg PO TID ropinirole 0.25 mg tablet 0.25 mg PO .at bedtime Eliquis 5 mg tablet 5 mg PO Q12H clopidogrel 75 mg tablet 75 mg PO DAILY ezetimibe 10 mg tablet 10 mg PO DAILY levothyroxine 25 mcg tablet 25 mcg PO DAILY metformin 500 mg tablet 500 mg PO DAILY metoprolol succinate 100 mg tablet extended release 24 hr 100 mg PO DAILY losartan 25 mg tablet 25 mg PO DAILY Held cephalexin 250 mg capsule 250 mg PO .2 times a week Hold Instructions: Resume on 11/05/23. hold until you finish your new abx for UTI Patient Comments: sun and Activity: increase activity as tolerated Diet: advance to your usual diet Print Language: Prydeinig Forms: Portal Instructions Follow Up Appointments: pcp in one week
--- NOTE | 2023-10-29 13:42 | CM.DCFOLLOWU ---
Person spoke with:patient How are you feeling? well How is your pain? none Did you understand your discharge instructions? yes Do you have any questions about your discharge instructions? no Were you given any prescriptions at discharge? yes Were you able to get your prescriptions filled? yes Do you understand how to take your medications as ordered? yes Do you have any questions about your follow up appointment and do you plan to keep your follow up appointment? no questions, will call PCP for follow up apt Is there anything else that you would like to discuss? no Questions/Comments/Concerns/Other: none
== END 2023-10-28 12:28 | disposition home or self-care (01) ==
LOC: ER 14:29 → MS 14:56
PROVIDERS: Admitting Provider Internal Medicine; Emergency Provider Emergency Medicine; Visit Provider Internal Medicine
DX: R42 Dizziness and giddiness (principal); N39.0 Urinary tract infection, site not specified; I25.10 Atherosclerotic heart disease of native coronary artery without angina pectoris; E03.9 Hypothyroidism, unspecified; I48.0 Paroxysmal atrial fibrillation; E11.22 Type 2 diabetes mellitus with diabetic chronic kidney disease; I12.9 Hypertensive chronic kidney disease with stage 1 through stage 4 chronic kidney disease, or unspecified chronic kidney disease; N18.2 Chronic kidney disease, stage 2 (mild); E78.5 Hyperlipidemia, unspecified; Z79.84 Long term (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 of oral hypoglycemic drugs; Z79.890 Hormone replacement therapy; I69.398 Other sequelae of cerebral infarction; H53.8 Other visual disturbances; Z79.02 Long term (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 of antithrombotics/antiplatelets; Z79.01 Long term (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 of anticoagulants; B95.2 Enterococcus as the cause of diseases classified elsewhere
CPT/HCPCS: 36415; 70450; 71045; 80048; 80053; 80061; 81001; 83036; 84443; 84484; 85025; 87086; 87150; 87186; 93005; 94761; 96360; 96361; 99285; G0378

== ENCOUNTER 2024-01-10 10:26 | Outpatient (OUT) | payer MEDICARE, SELFPAY ==
--- OUTSIDE RECORDS SUMMARY | 2024-01-10 10:34 | XMS_ITS | CCD ---
Author Organization [facility] Care Team Providers Care Prevention Coordinator Name Role Phone DO Seamus Rios Primary Care Provider [phone] DO Seamus Rios Attending Provider [phone] Seamus Rios Attending Unavailable Seamus Rios Primary Care Unavailable Seamus Rios Admitting Unavailable SEAMUS RIOS Primary Care Physician OSMANI ., ELVER Admitting Unavailable OSMANI ., ELVER Attending Unavailable MARCO, DR SEAMUS Alvarez Consulting Unavailable REQUEST, NONE LISTED Primary Care Unavailmikhail KEEN ., [place] Consulting Unavailable REQUEST, NONE LISTED Primary Care Unavaila ble GABRIEL, DR OROZCO Admitting Unavailable GABRIEL, DR OROZCO Consulting Unavailable GABRIEL, DR OROZCO Attending Unavailable FOX CRUZ Attending Unavailable Seamus Rios DO Primary Care Provider SEAMUS RODRIGUEZ Attending Unavailable SEAMUS RIOS Referring Unavailable GABRIEL, SEAMUS Rivera Primary Care Unavailable MIKE DELGADO Attending Unavailable SEAMUS RIOS Referring Unavailable GABRIEL, SEAMUS Rivera Primary Care Unavailable KATARZYNA BASHIR Referring Unavailable SEAMUS RIOS Primary Care Unavailable Flo JOHNSON Attending Unavailable JOSE MARIA, Flo R Attending Unavailable JOSE MARIA, Flo R Attending Unavailable JOSE MARIA, Flo R Attending Unavailable Flo JOHNSON R Admitting Unavailable Gabriel, Seamus Rivera Attending Unavailable Gabriel, Seamus P Primary Care Unavailable Seamus Rios Primary Care Unavailable Angeline Dickerson Admitting Unavailable Angeline Dickerson Attending Unavailable Gabriel, Seamus Rivera Primary Care Unavailable Gabriel, Seamus Rivera Attending Unavailable Gabriel, Seamus Rivera Referring Unavailable Gabriel, Seamus Rivera Primary Care Unavailable Gabriel, Seamus Rivera Attending Unavailable Gabriel, Seamus Rivera Primary Care Unavailable Seamus Rios Attending Unavailable Gabriel, Seamus P Primary Care Unavailable Seamus Rios Attending Unavailable Gabriel, Seamus P Primary Care Unavailable Seamus Rios Attending Unavailable Seamus Rios Primary Care Unavailable Seamus Rios Attending Unavailable Allergies Allergy Classification Reported Allergen(s) Allergy Type Date of Onset Reaction(s) Facility (5 sources) Oxytetracycline; Translations: [oxytetracycline] Drug Allergy Moderate (severity modifier) (qualifier value) [facility] Comment on above: teramiacin (9 sources) Penicillins; Translations: [penicillins] Drug allergy 11-08-19 16 Moderate (severity modifier) (qualifier value) [facility] (3 sources) Oxytetracycline; Translations: [TERRAMYCIN] Drug Allergy 11-08-19 16 [facility] Repository (1 source) penciclovir; Translations: [PENCICLOVIR] Drug Allergy 10-03-19 [facility] Repository (3 sources) HMG-CoA reductase inhibitor; Translations: [PEAQDSL-OFP-CQT REDUCTASE INHIBITORS] Propensity to adverse reactions to drug 09-10-19 23 Other (See Comments) [facility] (2 sources) Oxytetracycline Drug Allergy 02-16-20 [facility] (1 source) Hmg-Coa Reductase Inhibitors (Statins); Translations: [statins] Propensity to adverse reactions to drug (disorder) [facility] Repository (1 source) Penicillin; Translations: [penicillin] Drug Allergy [facility] Repository Medications Current Medications Medication Drug Class(es) Dates Sig (Normalized) Sig (Original) apixaban 5 mg oral tablet (5 sources) Factor Xa Inhibitor Start: 09-15-2022 Eliquis 5 mg oral tablet Refills(s) 0 Start Date: 05/11/23 Status: Ordered aspirin 81 mg oral tablet (3 sources) Platelet Aggregation Inhibitor, Nonsteroidal Anti-inflammatory Drug Start: 01-27-2019 take 1 mg by mouth once daily aspirin 81 mg oral tablet mg tab(s), Oral, Daily, Refills(s) 0 Start Date: 01/27/19 Status: Ordered aspirin 81 mg ch ewable tablet Chew 1 tablet (81 mg total) and swallow in the morning. 0 Active atorvastatin 20 mg oral tablet (1 source) HMG-CoA Reductase Inhibitor Start: 05-01-2022 atorvastatin 20 mg Tab Refills(s) 0 Start Date: 05/01/22 Status: Ordered clopidogrel 75 mg oral tablet (5 sources) P2Y12 Platelet Inhibitor Start: 09-16-2022 clopidogrel 75 mg Tab Refills(s) 0 Start Date: 05/11/23 Status: Ordered docusate sodium 50 mg / sennosides, nursing home 8.6 mg oral tablet (2 sources) take 1 tablet by mouth in the morning sennosides-docusate sodium (SENNA WITH DOCUSATE SODIUM) 8.6-50 mg Take 1 tablet by mouth in the morning and 1 tablet before bedtime. 0 Active droxidopa 300 mg oral capsule (5 sources) Start: 05-01-2022 droxidopa 300 mg oral capsule Refills(s) 0 Start Date: 05/01/22 Status: Ordered Start: 01-27-2019 Northera Oral, TID, Refills(s) 0 Start Date: 01/27/19 Status: Ordered estradiol 0.1 mg/ml vaginal cream (3 sources) Estrogen Start: 07-30-2022 estradioL (EST RACE) 0.01 % (0.1 mg/gram) vaginal cream Insert 1 g into the vagina 3 (three) times a week. 0 07/30/2022 Active Start: 05-01-2022 estradiol 0.1 mg/g Vag Crm 1 gm, Vaginal, MonWedFri, 42.5 gm, Refill(s) 11, insert 1gm vaginally 3x a week and apply a pea size amount around the urethra, [facility] #[id number], 163, cm, 05/01/22 13:29:00 EST, Height/Length Dosing, 61, kg, 05/01/22 13:29:00 EST, Weight Dosing Start Date: 05/01/22 Status: Ordered ezetimibe 10 mg oral tablet (5 sources) Dietary Cholesterol Absorption Inhibitor Start: 09-15-2022 ezetimibe 10 mg Tab Refills(s) 0 Start Date: 05/11/23 Status: Ordered hydroxyurea 200 mg oral capsule (2 sources) Antimetabolite take 1 capsule by mouth once daily hydroxyurea, sickle cell, (DROXIA) 200 mg capsule Take 1 capsule by mouth daily 0 Active levoFLOXacin 250 mg oral tablet (2 sources) Quinolone Antimicrobial Start: 05-11-2023 take 1 tablet by mouth once daily Levaquin 250 mg Tab 250 mg = 1 tab(s), Oral, Daily, # 7 tab(s), Refills(s) 0, [facility]: [id number], 163, cm, 05/11/23 8:21:00 EST, Height/Length Dosing, 61, kg, 05/11/23 8:21:00 EST, Weight Dosing Start Date: 05/11/23 Status: Ordered levothyroxine sodium 0.025 mg oral tablet (5 sources) l-Thyroxine Start: 05-11-2023 levothyroxine 25 mcg (0.025 mg) Tab Refills(s) 0 Start Date: 05/11/23 Status: Ordered take 1 tablet by mouth in the mo rning levothyroxine (SYNTHROID, LEVOTHROID) 25 MCG tablet Take 1 tablet (25 mcg total) by mouth in the morning. 0 Active losartan potassium 25 mg oral tablet (5 sources) Angiotensin 2 Receptor Jaelyn Start: 05-11-2023 losartan 25 mg Tab Refills(s) 0 Start Date: 05/11/23 Status: Ordered magnesium hydroxide 80 mg/ml oral suspension (2 sources) take 30 mL by mouth once daily as needed magnesium hydroxide 400 mg/5 mL suspension Take 30 mL by mouth nightly as needed. 0 Active meclizine hydrochloride 25 mg chewable tablet (2 sources) Antiemetic meclizine (ANTIVERT) 25 mg tablet Chew 1 tablet (25 mg total) and swallow once daily. 0 Active melatonin 3 mg oral tablet (2 sources) take 1 tablet by mouth once daily melatonin (MELATIN) tablet Take 1 tablet (3 mg total) by mouth nightly. 0 Active osmotic 24 hr metFORMIN hydrochloride 500 mg extended release oral tablet (2 sources) Biguanide take 1 tablet by mouth once daily at breakfast metFORMIN (FORTAMET) 500 MG (OSM) 24 hr tablet Take 1 tablet (500 mg total) by mouth daily with breakfast. 0 Active Metoprolol (5 sources) beta-Adrenergic Jaelyn Start: 05-11-2023 metoprolol Refills(s) 0 Start Date: 05/11/23 Status: Ordered Start: 09-16-2022 take 1 tablet by eliseo th every twenty-four hours in the morning metoprolol succinate XL (TOPROL XL) 100 mg 24 hr tablet Take 1 tablet (100 mg total) by mouth in the morning. 0 09/16/2022 Active psyllium 3400 mg powder for oral suspension (2 sources) Start: 09-15-2022 take 1 dose by mouth once daily as needed for constipation psyllium (METAMUCIL) 3.4 gram packet Take 1 packet (3.4 g total) by mouth daily as needed (Constipation). 0 09/15/2022 Active rOPINIRole 0.25 mg oral tablet (6 sources) Nonergot Dopamine Agonist Start: 01-30-2020 ropinirole 0.25 mg Tab Refills(s) 0 Start Date: 01/30/20 Status: Ordered simethicone 125 mg chewable tablet (2 sources) take 1 tablet by mouth every six hours as needed simethicone (MYLICON) 125 mg chewable tablet Chew 1 tablet (125 mg total) and swallow every 6 (six) hours as needed for flatulence. 0 Active sulfamethoxazole 800 mg / trimethoprim 160 mg oral tablet (2 sources) Dihydrofolate Reductase Inhibitor Antibacterial, Sulfonamide Antimicrobial Start: 09-21-2023 Bactrim D.S. 800 mg-160 mg Tab 1 tab(s), Oral, BID, 20 tab(s), Refill(s) 0, [facility] #[id number], 163, cm, 09/21/23 9:00:00 EDT, Height/Length Dosing, 59.3, kg, 09/21/23 9:00:00 EDT, Weight Dosing Start Date: 09/21/23 Status: Ordered Start: 09-21-2023 End: 09-15-2024 Bactrim D.S. 800 mg-160 mg T ab 1 tab(s), Oral, MonFri for 30 day(s), 9 tab(s), Refill(s) 11, [facility] #[id number], 163, cm, 09/21/23 9:00:00 EDT, Height/Length Dosing, 59.3, kg, 09/21/23 9:00:00 EDT, Weight Dosing Start Date: 09/21/23 Stop Date: 09/15/24 Status: Ordered Problems Active Problems Problem Classification Problem Date Documented Date Episodic/Chronic Acute cerebrovascular disease (5 sources) Cerebrovascular accident; Translations: [Cerebral infarction, unspecified] Onset: 09-02-2022 05-11-2023 Chronic Acute myocardial infarction (3 sources) Myocardial infarction 05-11-2023 Chronic Cardiac dysrhythmias (2 sources) Torsades de pointes; Translations: [Torsades de pointes] Onset: 09-02-2022 09-11-2022 Chronic Coronary atherosclerosis and other heart disease (2 sources) Atherosclerotic heart disease of [place] coronary artery without angina pectoris; Translations: [Coronary arteriosclerosis] Onset: 09-07-2023 Chronic Diabetes mellitus without complication (1 source) Type 2 diabetes mellitus without complications; Translations: [Type 2 diabetes mellitus without complications] Onset: 05-30-2023 Chronic Disorders of lipid metabolism (5 sources) Hyperlipidemia, unspecified; Translations: [HYPERLIPIDEMIA UNSPECIFIED] Onset: 07-06-2022 Chronic Genitourinary symptoms and ill-defined conditions (7 sources) Urge incontinence; Translations: [Urge incontinence of urine] Onset: 05-01-2022 Chronic Genitourinary symptoms and ill-defined conditions (16 sources) Dysuria; Translations: [Increased frequency of urination] 08-25-2019 Episodic Other aftercare (2 sources) Long-term current use of anticoagulant; Translations: [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 (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 of anticoagulants] Onset: 05-11-2023 Episodic Other lower respiratory disease (1 source) Shortness of breath Onset: 09-07-2023 Episodic Parkinson`s disease (6 sources) Parkinson's disease; Translations: [Parkinson's disease] Onset: 11-27-2020 01-27-2019 Chronic Thyroid disorders (4 sources) Disorder of thyroid gland 10-09-2018 Episodic Unclassified (4 sources) Drug therapy finding 10-09-2018 Unclassified (1 source) Other ventricular tachycardia; Translations: [Other ventricular tachycardia] Onset: 09-07-2023 Urinary tract infections (7 sources) Chronic cystitis; Translations: [Other chronic cystitis without hematuria] Onset: 05-01-2022 Chronic Urinary tract infections (7 sources) Postinfective urethral stricture of female; Translations: [Postinfective urethral stricture, not elsewhere classified, female] Onset: 05-01-2022 Episodic Past or Other Problems Problem Classification Problem Date Documented Date Episodic/Chronic E Codes: Fall (1 source) Unspecified fall, initial encounter; Translations: [UNSPECIFIED FALL INITIAL ENCOUNTER] Onset: 03-13-2022 Episodic Malaise and fatigue (1 source) Weakness; Translations: [Weakness] Onset: 04-16-2023 Episodic Mood disorders (2 sources) Mood disorders Onset: 09-02-2022 09-02-2022 Other aftercare (1 source) 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 (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 of 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; Translations: [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 CLERK CURRENT USE OF ASPIRIN] Onset: 03-13-2022 Episodic Other aftercare (1 source) Other remote computer terminal operator (current) drug therapy; Translations: [OTH CHARGE ACCOUNTS AUDIT CLERK CURRENT DRUG THERAPY] Onset: 03-13-2022 Episodic Other nervous system disorders (1 source) Other abnormalities of gait and mobility; Translations: [Other abnormalities of gait and mobility] Onset: 04-16-2023 Episodic Spondylosis; intervertebral disc disorders; other back problems (4 sources) Sciatica, left side; Translations: [SCIATICA LEFT SIDE] Onset: 03-10-2022 Episodic Superficial injury; contusion (1 source) Contusion of left hip, initial encounter; Translations: [CONTUSION LEFT HIP INITIAL ENC] Onset: 03-13-2022 Episodic Viral infection (2 sources) COVID-19; Translations: [Pneumonia due to other virus not elsewhere classified] Onset: 11-26-2020 11-27-2020 Episodic Results Test Name Value Interpretation Reference Range Facility Electrocardiogram-EKGon 09-23 Electrocardiogram-E KG [id number]#1.00 [facility] Outside Recordson 10-05-2023 Outside Records [id number]#1.00 [facility] Outside Records [id number]#[id number] [facility] Urology Office/Clinic Noteon 09-21-2023 Urology Office/Clinic Note Urology Office/Clinic Note Chief Complaint chronic cystitis HPI Staff 4 month f/u DX: Chronic Cystitis, Urge Incontinence & Urethral Stricture *Estradiol Cream DC'd at time of time of last encounter. Pansensitive +C&S at time of last encounter. Tx'd w/Levaquin Dysuria: no Incomplete bladder emptying: pt feels she is emptying Hematuria: no Frequency: no Urgency: sometimes at night Nocturia: 0-1x Stream: no straining strong stream Leaking: no Post void dripping: no Wearing pads/ Depends: wears large pad only at night Urge incontinence: no Stress incontinence: a small dribble with sneezing rarely Incontinence without Sensory Awareness: no Abdominal pain: no Flank pain: no Sexual complaints: no History of Present Illness Tests reviewed: reviewed UA, culture, labs I have reviewed the previous health record information and history for this patient from Dr. Johnson. I have reviewed and verified the staff HPI to be accurate for this encounter. There have been no associated fever, chills, flank pain, or blood in the urine. Denies any urinary infections since last encounter. Review of Systems PHQ Score Initial Depression Screen Score: 0 SCORE ROS - Provider Constitutional: denies weight loss, denies hot flashes. Eyes: denies eye problems. Gastrointestinal: denies nausea, denies vomiting. Cardiovascular: denies chest pain or angina. Integumentary: no dryness Musculoskeletal: denies musculoskeletal symptoms. ENMT: denies otolaryngeal symptoms. Respiratory: no shortness of breath. Heme/Lymph: denies easy bleeding tendency, denies easy bruising tendency. Psychiatric: no confusion, no anxiety. Genitourinary: See HPI. Physical Exam Vitals & Measurements T: 37 ?C(Temporal Artery) HR: 65(Peripheral) RR: 16 BP: 121/63 HT: 64 in HT: 163 cm WT: 59.3 kg WT: 130.46 lb BMI: 22.32 General Appearance: alert , no acute distress, well nourished, well developed female. Assessment/Plan Pt accompanied by caregiver today. 1. Chronic cystitis without hematuria (N30.20: Other chronic cystitis without hematuria) 05/13/23 - >100k E Coli. Pansensitive. Tx'd w/ Levaquin. Pt called after starting abx and reported abx was making her balance worse and making her feel jittery. Labs 05/30/23 Cr 1.09, eGFR 51 Estradiol cream was discontinued at last visit due to hx of stroke. UA today shows small blood and trace leuks. Denies dysuria. Reports her urine is foul smelling, not always. Given recent urge episodes and foul smelling urine, will start pt on Bactrim DS bid x 10 days, and then pt to continue Bactrim 2x/wk. -Start Bactrim DS 800-160mg bid x 10 days with food -After completing abx course, start Bactrim DS 400mg 2x/wk for prevention Follow up in 4 months w/ PVR or sooner if needed. 2. Urge incontinence (N39.41: Urge incontinence) Mainly at night. Reports she has only had two episodes of severe urge since last visit. Could be due to infection. See #1. 3. Postinfective urethral stricture in female (N35.12: Postinfective urethral stricture, not elsewhere classified, female) S/p cysto/UD 2011. No issues with emptying. Last PVR 23 mL. 4. 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 Hx of stroke and [facility] 2 days following stroke. Went into cardiac arrest. Cardiac stent placed 08/2022. Elevated risk for periop complications. Follow-up With When Contact Information JOSE MARIA MCDANIELS, Flo Alvarez, [place] [id number]- Additional Instructions: 4 mos w/ PVR Patient Education Urinary Tract Infection, Adult I, Marielle Darby, personally scribed for Dr. Johnson on 09/21/2023 09:24:16. . Documentation recorded by the scribe, Marielle Darby, accurately reflects the services(s) I performed and decisions made by me. Authenticated by Dr. Johnson on 09/21/2023 09:28:16. 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 Medications clopidogrel 75 mg Tab droxidopa 300 mg oral capsule Eliquis 5 mg oral tablet ezetimibe 10 mg Tab levothyroxine 25 mcg (0.025 mg) Tab losartan 25 mg Tab metoprolol ropinirole 0.25 mg Tab Allergies oxytetracycline (Moderate) penicillins (Moderate) Social History Alcohol - Denies Alcohol Use, 10/09/2018 Tobacco Never (less than 100 in lifetime) Tobacco Use:. Never Smokeless Tobacco Use:. Household tobacco concerns: No. Yes, 09/21/2023 Family History Primary malignant neoplasm of lung: Mother and (more content not included)... Normal [facility] Comment on above: Result Comment: Elec tronically Signed By: Flo JOHNSON MD\.br\Date and Time Signed: 09/21/23 09:28 EDT\.br\Electronically Co-Signed By: Marielle Darby\.br\Date and Time Co-Signed: 09/21/23 09:24 EDT Lab - Other Lab Resultson Lab - Other Lab Results [id number] .[id number] Normal [facility] METABOLIC PANE Sunil 05-30-2023 Albumin [Mass/Vol] 4.1 g/dL Normal 3.2-5.3 [facility] Comment on above: Performed By: #### Pratik LOPEZ [id number] #### [facility] ([id number]) [address], [address] [place] [address] ALP [Catalytic activity/Vol] 73 U/L Normal 39-130 [facility] Comment on above: Performed By: #### Pratik LOPEZ 13190-7 #### [facility] ([id number]) [address], [address] [place] [address] ALT [Catalytic activity/Vol] 17 U/L Normal 0-31 [facility] Comment on above: Performed By: #### Pratik LOPEZ, 15096-4 #### [facility] ([id number]) [address], [address] [place] [address] Anion gap [Moles/Vol] 7 mmol/L Normal 5-15 [facility] Comment on above: Performed By: #### Pratik LOPEZ 71880-8 #### [facility] ([id number]) [address], [address] [place] [address] AST [Catalytic activity/Vol] 18 U/L Normal 0-41 [facility] Comment on above: Performed By: #### Pratik LOPEZ, 97377-4 #### [facility] ([id number]) [address], [address] [place] [address] Bilirubin [Mass/Vol] 0.4 mg/dL Normal 0.3-1.2 [facility] Comment on above: Performed By: #### Pratik LOPEZ, 05987-4 #### [facility] ([id number]) [address], [address] [place] [address] Calcium [Mass/Vol] 9.8 mg/dL Normal 8.5-10.5 [facility] Comment on above: Performed By: #### Pratik LOPEZ, 94133-8 #### [facility] ([id number]) [address], [address] [place] [address] Chloride [Moles/Vol] 100 mmol/L Normal 98-109 [facility] Comment on above: Performed By: #### Pratik LOPEZ, 79614-2 #### [facility] ([id number]) [address], [address] [place] [address] CO2 [Moles/Vol] 30 mmol/L Normal 22-32 [facility] Comment on above: Performed By: #### Pratik LOPEZ, 60012-0 #### [facility] ([id number]) [address], [address] [place] [address] Creatinine [Mass/Vol] 1.09 mg/dL High 0.40-1.00 [facility] Comment on above: Result Comment: METH OD TRACEABLE TO IDMS STANDARD Performed By: #### Pratik LOPEZ, 31589-0 #### [facility] ([id number]) [address], [address] [place] [address] GFR/1.73 sq M.predicted among non-blacks MDRD (S/P/Bld) [Vol rate/Area] 51 mL/min/{1.73_m2} Low >59 [facility] Comment on above: Result Comment: Reported eGFR is based on the CKD-EPI 2020 equation that does not use a race coefficient. Performed By: #### Pratik LOPEZ, 72032-7 #### [facility] ([id number]) [address], [address] [place] [address] Glucose [Mass/Vol] 101 mg/dL High 65-99 [facility] Comment on above: Performed By: #### Pratik LOPEZ, 18579-9 #### [facility] ([id number]) [address], [address] [place] [address] Potassium [Moles/Vol] 4.1 mmol/L Normal 3.5-5.0 [facility] Comment on above: Performed By: #### Pratik LOPEZ, 73738-4 #### [facility] ([id number]) [address], [address] [place] [address] Protein [Mass/Vol] 7.9 g/dL Normal 6.0-8.0 [facility] Comment on above: Performed By: #### Pratik LOPEZ, 87904-2 #### [facility] ([id number]) [address], [address] [place] [address] Sodium [Moles/Vol] 137 mmol/L Normal 134-146 [facility] Comment on above: Performed By: #### Pratik LOPEZ, 94220-4 #### [facility] ([id number]) [address], [address] [place] [address] Urea nitrogen [Mass/Vol] 16 mg/dL Normal 5-27 [facility] Comment on above: Performed By: #### Pratik LOPEZ, 11885-4 #### [facility] ([id number]) [address], [address] [place] [address] HGB A1C (GLYCO-HGB)on 2023 Glucose [Mass/Vol] 120 mg/dL Normal [facility] Comment on above: Performed By: #### Pratik LOPEZ, 03829-3 #### [facility] ([id number]) [address], [address] [place] [address] HbA1c (Bld) [Mass fraction] 5.8 % High 4.4-5.6 [facility] Comment on above: Result Comment: NOTE ADA Guidelines Result HgbA1c Normal : less than 5.7 % Prediabetes : 5.7 % to 6.4 % Diabetes : > 6.4 % Use with caution in patients with abnormal hemoglobin variants as the half-life of red blood cells and in vivo glycation rates are affected. Performed By: #### Pratik LOPEZ, 92118-1 #### [facility] ([id number]) [address], [address] [place] [address] Lipid 1996 panelon Cholesterol [Mass/Vol] 203 mg/dL High 150-200 [facility] Comment on above: Performed By: #### Pratik LOPEZ, 16305-1 #### [facility] ([id number]) [address], [address] [place] [address] Cholesterol in HDL [Mass/Vol] 45 mg/dL Normal >39 [facility] Comment on above: Result Comment: HDL <40 mg/dL - High Risk HDL > or = 40mg/dL- Desirable HDL >60 mg/dL - Negative Risk Performed By: #### Pratik LOPEZ, 07478-0 #### [facility] ([id number]) [address], [address] [place] [address] Cholesterol in LDL [Mass/Vol] 97 mg/dL Normal <130 [facility] Comment on above: Result Comment: LDL <100 mg/dL - Desirable LDL >160 mg/dL - High Risk Performed By: #### C JESSICA, 74420-2 #### [facility] ([id number]) [address], [address] [place] [address] Cholesterol in VLDL [Mass/Vol] 61 mg/dL High 0-30 [facility] Comment on above: Performed By: #### Pratik LOPEZ, 16857-5 #### [facility] ([id number]) [address] [place] [address] CHOLESTEROL:HDL 4.5 Normal 1.0-5.0 [facility] Comment on above: Performed By: #### Pratik LOPEZ, 95473-5 #### [facility] ([id number]) [address] [facility] [address] [place] [address] Triglyceride [Mass/Vol] 306 mg/dL High 27-150 [facility] Comment on above: Performed By: #### Pratik LOPEZ, 20918-0 #### [facility] ([id number]) [address] [place] [address] Lab - Other Lab Resultson Lab - Other Lab Results [id number]#1.0 0OTGTIFF Normal [facility] Urineon 05-13-2023 Bacteria identified Cx Nom (U) Microbiology PROCEDURE: Urine Culture [R1] SOURCE: U Random BODY SITE: COLLECTED DATE/TIME: 05/11/2023 08:44 EST RECEIVED DATE/TIME: 05/11/2023 17:45 EST START DATE/TIME: 05/11/2023 17:45 EST FREE TEXT SOURCE: JOSE MARIA MCDANIELS, Flo R Flo JOHNSON MD FINAL REPORTS Final Report [] Verified Date/Time: 05/13/2023 09:53 EST >100,000 cfu/ml Escherichia coli SUSCEPTIBILITY RESULTS __ LEGEND: S=Susceptible, N/R=Not Reported, Blank=Data not available, or drug not advisable or tested, I=Intermediate, ESBL=Extended spectrum beta-lactamase, R=Resistant, TFG=Thymidine-dependen t strain, DEISI=Beta-lactamase positive, ISAÍAS=mcg/m;(mg/L), S*=Predicted susceptible interp, R*=Predicted resistant interp EC Antibiotic ISAÍAS Dilutn ISAÍAS Interp Amikacin <=16 S Ampicillin <=8 S Ampicillin/ <=8/4 S Sulbactam Aztreonam <=4 S Cefazolin <=2 S Cefepime <=2 S Cefoxitin <=8 S Ceftazidime <=1 S Ceftazidime/ <=8 S Avibactam Ceftriaxone <=1 S Ciprofloxacin <=1 S Ertapenem <=0.5 S Gentamicin <=4 S Levofloxacin <=2 S Meropenem <=1 S Nitrofurantoin <=32 S Piperacillin/ <=16 S Tazobactam Tetracycline <=4 S Tigecycline <=2 S Tobramycin <=4 S Trimethoprim/ <=2/38 S Sulfa Performing Locations R1: This test was performed at: [facility], [address] [place], [address]- , [place], Normal [facility] Comment on above: Performed By: #### 2 [id number] #### [facility] [address] [place] [id number] Ambulatory Visit Summaryon 0 05-11-2023 Ambulatory Visit Summary JENNIFER MCKENZIE :1940 Visit Date:05/11/2023 Ambulatory Visit Instructions Your Diagnosis Chronic cystitis without hematuria Urge incontinence Postinfective urethral stricture in female Anticoagulated Your Care Team Attending Physician - JOSE MARIA MCDANIELS, Flo Alvarez Primary Care Physician - SEAMUS RIOS DO This Is Your Medications List levofloxacin (Levaquin 250 mg Tab) Contact prescribing physician if questions or concerns apixaban (Eliquis 5 mg oral tablet) clopidogrel (clopidogrel 75 mg Tab) droxidopa (droxidopa 300 mg oral capsule) ezetimibe (ezetimibe 10 mg Tab) levothyroxine (levothyroxine 25 mcg (0.025 mg) Tab) losartan (losartan 25 mg Tab) metoprolol ropinirole (ropinirole 0.25 mg Tab) [Image Removed: STOP]Stop taking these medications estradiol topical (estradiol 0.1 mg/g Vag Crm) Procedures Performed Cystourethroscopy with dilation of urethral stricture (12/18/2011), Appendectomy, CE - Cataract extraction, History of hysterectomy, Placement of stent in cardiac conduit. Discharge Vitals Heart Rate (Peripheral) 67 Respiratory Rate 16 Blood Pressure 134/79 Height 163 cm Height 64 in Weight 61 kg Weight 134.2 lb BMI 22.96 What to do next You Need to Schedule the Following Appointments Follow Up with JOSE MARIA MCDANIELS, Flo Alvarez, URL When: Where: [facility] [place] [address]- Medications What How Much When Instructions New levofloxacin (Levaquin 250 mg Tab) 1 Tablets By Mouth Every day Pickup at [id number] Unchanged apixaban (Eliquis 5 mg oral tablet) Contact prescribing physician if questions or concerns Unchanged clopidogrel (clopidogrel 75 mg Tab) Contact prescribing physician if questions or concerns Unchanged droxidopa (droxidopa 300 mg oral capsule) Contact prescribing physician if questions or concerns Unchanged ezetimibe (ezetimibe 10 mg Tab) Contact prescribing physician if questions or concerns Unchanged levothyroxine (levothyroxine 25 mcg (0.025 mg) Tab) Contact prescribing physician if questions or concerns Unchanged losartan (losartan 25 mg Tab) Contact prescribing physician if questions or concerns Unchanged metoprolol Contact prescribing physician if questions or concerns Unchanged ropinirole (ropinirole 0.25 mg Tab) Contact prescribing physician if questions or concerns Pharmacy Information [id number]: [address] [place], [place] [id number] [phone] What How Much When Comments Stop Taking estradiol topical (estradiol 0.1 mg/ g Vag Crm) 1 Gram Vaginal Sunday insert 1gm vaginally 3x a week and apply a pea size amount around the urethra Allergies oxytetracycline (Moderate) penicillins (Moderate) Problems Ongoing - Any problem that you are currently receiving treatment for. Anticoagulated Chronic cystitis without hematuria Dysuria Heart attack Nocturia Parkinson disease Postinfective urethral stricture in female Stroke Urge incontinence Urgency of urination Urinary frequency Historical - Any problem that you are no longer receiving treatment for. Thyroid disease Patient Survey You may receive a survey via text or e-mail asking about your office visit. Please share your experience with us by completing your survey. We appreciate your feedback and thank you for choosing us for your care. Education Materials Urinary Tract Infection, Adult A urinary tract infection (UTI) is an infection of any part of the urinary tract. The urinary tract includes the kidneys, ureters, bladder, and urethra. These organs make, store, and get rid of urine in the body. An upper UTI affects the ureters and kidneys. A lower UTI affects the bladder and urethra. What are the causes? Most urinary tract infections are caused by bacteria in your genital area around your urethra, where urine leaves your body. These bacteria grow and cause inflammation of your urinary tract. What increases the risk? You are more likely to develop this condition if: ? You have a urinary catheter that stays in place. ? You are not able to control when you urinate or have a bowel movement (incontinence). ? You are female and you: ? Use a spermicide or diaphragm for control. ? Have low estrogen levels. ? Are . ? You have certain genes that increase your risk. ? You are sexually active. ? You take antibiotic medicines. ? You have a condition that causes your flow of urine to slow down, such as: ? An enlarged prostate, if you are male. ? Blockage in your urethra. ? A kidney stone. ? A nerve condition that affects your bladder control (neurogenic bladder). ? Not getting enough to drink, or not urinating often. ? You have certain medical conditions, such as: ? Diabetes. ? A weak disease-fighting system (immunesystem). ? Sickle cell disease. ? Gout. ? Spinal cord inj (more content not included)... Normal [facility] Patient Educationon 05-11-19 Patient Education Urinary Tract Infection, Adult A urinary tract infection (UTI) is an infection of any part of the urinary tract. The urinary tract includes the kidneys, ureters, bladder, and urethra. These organs make, store, and get rid of urine in the body. An upper UTI affects the ureters and kidneys. A lower UTI affects the bladder and urethra. What are the causes? Most urinary tract infections are caused by bacteria in your genital area around your urethra, where urine leaves your body. These bacteria grow and cause inflammation of your urinary tract. What increases the risk? You are more likely to develop this condition if: ? You have a urinary catheter that stays in place. ? You are not able to control when you urinate or have a bowel movement (incontinence). ? You are female and you: ? Use a spermicide or diaphragm for control. ? Have low estrogen levels. ? Are . ? You have certain genes that increase your risk. ? You are sexually active. ? You take antibiotic medicines. ? You have a condition that causes your flow of urine to slow down, such as: ? An enlarged prostate, if you are male. ? Blockage in your urethra. ? A kidney stone. ? A nerve condition that affects your bladder control (neurogenic bladder). ? Not getting enough to drink, or not urinating often. ? You have certain medical conditions, such as: ? Diabetes. ? A weak disease-fighting system (immunesystem). ? Sickle cell disease. ? Gout. ? Spinal cord injury. What are the signs or symptoms? Symptoms of this condition include: ? Needing to urinate right away (urgency). ? Frequent urination. This may include small amounts of urine each time you urinate. ? Pain or burning with urination. ? Blood in the urine. ? Urine that smells bad or unusual. ? Trouble urinating. ? Cloudy urine. ? Vaginal discharge, if you are female. ? Pain in the abdomen or the lower back. You may also have: ? Vomiting or a decreased appetite. ? Confusion. ? Irritability or tiredness. ? A fever or chills. ? Diarrhea. The first symptom in older adults may be confusion. In some cases, they may not have any symptoms until the infection has worsened. How is this diagnosed? This condition is diagnosed based on your medical history and a physical exam. You may also have other tests, including: ? Urine tests. ? Blood tests. ? Tests for STIs (sexually transmitted infections). If you have had more than one UTI, a cystoscopy or imaging studies may be done to determine the cause of the infections. How is this treated? Treatment for this condition includes: ? Antibiotic medicine. ? Tjlz-gph-wdilxmg medicines to treat discomfort. ? Drinking enough water to stay hydrated. If you have frequent infections or have other conditions such as a kidney stone, you may need to see a health care provider who specializes in the urinary tract (urologist). In rare cases, urinary tract infections can cause sepsis. Sepsis is a life-threatening condition that occurs when the body responds to an infection. Sepsis is treated in the hospital with IV antibiotics, fluids, and other medicines. Follow these instructions at home: Medicines ? Take wkpz-eda-cmzwhvd and prescription medicines only as told by your health care provider. ? If you were prescribed an antibiotic medicine, take it as told by your health care provider. Do not stop using the antibiotic even if you start to feel better. General instructions ? Make sure you: ? Empty your bladder often and completely. Do not hold urine for long periods of time. ? Empty your bladder after sex. ? Wipe from front to back after urinating or having a bowel movement if you are female. Use each tissue only one time when you wipe. ? Drink enough fluid to keep your urine pale yellow. ? Keep all follow-up visits. This is important. Contact a health care provider if: ? Your symptoms do not get better after 1?2 days. ? Your symptoms go away and then return. Get help right away if: ? You have severe pain in your back or your lower abdomen. ? You have a fever or chills. ? You have nausea or vomiting. Summary ? A urinary tract infection (UTI) is an infection of any part of the urinary tract, which includes the kidneys, ureters, bladder, and urethra. ? Most urinary tract infections are caused by bacteria in your genital area. ? Treatment for this condition often includes antibiotic medicines. ? If you were prescribed an antibiotic medicine, take it as told by your health care provider. Do not stop using the antibiotic even if you start to feel better. ? Keep all follow-up visits. This is important. This information is not intended to replace advice given to you by your health care provider. Make sure you discuss any questions you have with your health care provider. Document Revised: 10/22/2020 Document Reviewed: 10/22/2020 April Rivera (more content not included)... Normal [facility] Urology Office/Clinic Noteon 05-11-2023 Urology Office/Clinic Note Chief Complaint 1yr HPI Staff 82 yo female here for 1 yr f/u. 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 S/p Cysto/UD 12/18/11. Uses Estradiol cream 3x/wk. MWF. (does need refill) Denies UTI since last encounter. Did have stroke/heart attack & cardiac stent placed in August. Was in [place] [facility], did have dark urine, tested urine, NEG. Denies current pain/burning and visible blood in urine. Has been getting up to void through out the night. Increased urgency. Occasional loss of bladder control. Denies frequency during the day. PVR 23ml History of Present Illness Tests reviewed: reviewed UA. I have reviewed the previous health record information and history for this patient from Dr. Johnson. I have reviewed and verified the staff HPI to be accurate for this encounter. There have been no associated fever, chills, flank pain, or blood in the urine. Denies any urinary infections since last encounter. Review of Systems PHQ Score Initial Depression Screen Score: 0 SCORE ROS - Provider Constitutional: denies weight loss, denies hot flashes. Eyes: denies eye problems. Gastrointestinal: denies nausea, denies vomiting. Cardiovascular: denies chest pain or angina. Integumentary: no dryness Musculoskeletal: denies musculoskeletal symptoms. ENMT: denies otolaryngeal symptoms. Respiratory: no shortness of breath. Heme/Lymph: denies easy bleeding tendency, denies easy bruising tendency. Psychiatric: no confusion, no anxiety. Genitourinary: See HPI. Physical Exam Vitals & Measurements HR: 67(Peripheral) RR: 16 BP: 134/79 HT: 64 in HT: 163 cm WT: 61 kg WT: 134.2 lb BMI: 22.96 General Appearance: alert , no acute distress, well nourished, well developed female. Assessment/Plan Pt here with caregiver today. 1. Chronic cystitis without hematuria (N30.20: Other chronic cystitis without hematuria) Reports she has not used Estradiol cream in the past year due to having issues with pharmacy. Explained to pt that there is an increased risk of having another stroke with using estradiol cream. Directed pt to d/c cream. Was in [place] [facility] after having stroke and heart attack. Reports she did have dark urine, tested urine, which was negative. UA today shows small blood, positive nitrates, and small leuks. States her urine smells foul at times. -D/c Estradiol cream -Will send today's urine for culture, pt to be called with results -Start empiric Levaquin 250mg qd x 7 days -Follow up in 4 months 2. Urge incontinence (N39.41: Urge incontinence) Reports increased urgency. Occasional leakage, mainly during the night. Could be due to possible infection. 3. Postinfective urethral stricture in female (N35.12: Postinfective urethral stricture, not elsewhere classified, female) S/p cysto w/ UD 2011. Emptying well. PVR 23 cc. 4. Anticoagulated (Z79.01: MCFP (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 of anticoagulants) Eliquis. Reports she had a stroke and then had a heart attack two days later. Pt states she went into cardiac arrest. Cardiac stent placed in August. Feels she is still improving. Follow-up With When Contact Information JOSE MARIA MCDANIELS, Flo Alvarez, URL [address] [place] [address]- Additional Instructions: 4 months Patient Education Urinary Tract Infection, Adult I, Marielle Darby, personally scribed for Dr. Johnson on 05/11/2023 08:53:31. . Documentation recorded by the tavoibdanae, Marielle Darby, accurately reflects the services(s) I performed and decisions made by me. Authenticated by Dr. Johnson on 05/11/2023 08:56:23. 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 Medications clopidogrel 75 mg Tab droxidopa 300 mg oral capsule Eliquis 5 mg oral tablet estradiol 0.1 mg/g Vag Crm, 1 gm, Vaginal, MonWedFri, 11 refills ezetimibe 10 mg Tab levothyroxine 25 mcg (0.025 mg) Tab losartan 25 mg Tab metoprolol ropinirole 0.25 mg Tab Allergies oxytetracycline (Moderate) penicillins (Moderate) Social History Alcohol - Denies Alcohol Use, 10/09/2018 Tobacco Never (less than 100 in lifetime) Tobacco Use:. Never Smokeless Tobacco Use:. Household tobacco concerns: No. Yes, 05/11/2023 Family History Primary malignant neoplasm of lung: Mother and Father. Immunizations Vaccine Date Status Comments influenza virus vaccine, inactivated - Not Given Patient Refuses tetanus-diphtheria toxoids 08/24/2012 Recorded Lab Results Ambulatory Po (more content not included)... Normal [facility] Comment on above: Result Comment: Elec tronically Signed By: Flo JOHNSON MD\.br\Date and Time Signed: 05/11/23 08:56 EST\.br\Electronically Co-Signed By: Marielle Darby.br\Date and Time Co-Signed: 05/11/23 08:53 EST CK [Catalytic activity/Vol]o n 04-16-2023 CPK 39 U/L Normal 24-170 [facility] Comment on above: Performed By: #### 2 157-6, 1988-5, 40376-6 #### [facility] ([id number]) [address] [place] [address] CRP [Mass/Vol]on 04-16-2023 C REACTIVE PROTEIN 0.1 mg/dL Normal 0.000-0.744 [facility] Comment on above: Performed By: #### 2 157-6, 1987-07, 78145-6 #### [facility] ([id number]) [address] [place] [address] ESR Photometric method (Bld) [Velocity]on 04-16-2023 ESR, ERYTHROCYTE SEDIMENTATION RATE 11 mm/h Normal 0-30 [facility] Comment on above: Performed By: #### 2 157-6, 1987-07, 39374-4 #### [facility] ([id number]) [address] [place] [address] Provider Orderson 04-11-2023 Provider Orders [id number]#1.0 0OTGTIFF Normal [facility] Outside Recordson 04-06-2023 Outside Records [id number]#1 .00OTGTIFF Normal [facility] Provider Orderson 03-30-2023 Provider Orders [id number]#1. 00OTGTIFF Normal [facility] Outside Recordson 03-07-2023 Outside Records [id number]#1. 00OTGTIFF Normal [facility] Outside Recordson 02-27-2023 Outside Records [id number]#1. 00OTGTIFF Normal [facility] Outside Recordson 02-13-2023 Outside Records [id number] 21 [id number]#1.00 OTGTIFF Normal [facility] Outside Recordson 01-15-2023 Outside Records [id number]#1 .00OTGTIFF Normal [facility] Outside Recordson 01-03-2023 Outside Records [id number] 31 [id number]#1.0 0OTGTIFF [facility] Outside Records [id number] 31 [id number]#1.0 0OTGTIFF [facility] Outside Recordson 12-28-2022 Outside Records [id number] 40 [id number]#1.0 0OTGTIFF [facility] Outside Recordson 12-26-2022 Outside Records [id number] 20 [id number]#1.0 0OTGTIFF [facility] Outside Recordson 12-25-2022 Outside Records [id number]#1 .00OTGTIFF [facility] Telemedicineon 10-02-2022 Telemedicine [id number] Jennifer Mckenzie 1940 F Date Provider Department Center 10/02/2022 FOX MCKEON [facility] No family history on file Level of Service:83827 MA PHYS/QHP TELEPHONE EVALUATION 11-20 MIN Reason for Visit and Comments: Follow-up [273823] - Unable to use video due to age and currently in extend care facility. Normal [facility] 36on 09-20-2022 36 Okay, Note on chart already she needs to schedule a telemed appointment with Dr. Cruz for follow up on biopsy results from [facility]. Normal [facility] Telephoneon 09-20-2022 Telephone [id number] Jennifer Mckenzie 1940 F Date Provider Department Center 09/20/2022 SHAHEED GUZMAN [facility] No family history on file Normal [facility] LIPID PROFILEon 07-06-2022 CHOL-HDL RATIO NORM SEE BELOW Normal [facility] Comment on above: Result Comment: 3.3 - 4.4 LOW RISK 4.4 - 7.1 AVERAGE RISK 7.1 - 11.0 MODERATE RISK >11.0 HIGH RISK Performed By: #### L IPID, LIVER #### [facility] [id number] Jill Euceda Cholesterol [Mass/Vol] 229 mg/dL Critically high <=200 [facility] Comment on above: Performed By: #### L IPID, LIVER #### [facility] [id number] Jill Euceda Cholesterol in HDL [Mass/Vol] 52 mg/dL Normal 40-60 [facility] Comment on above: Performed By: #### L IPID, LIVER #### [facility] [address] [address] [address] Jill Euceda Cholesterol in LDL [Mass/Vol] 143.2 mg/dL Normal [facility] Comment on above: Performed By: #### L IPID, LIVER #### [facility] [address] [address] [address] Jill Euceda Cholesterol.total/C holesterol in HDL [Mass ratio] 4.4 {ratio} Normal [facility] Comment on above: Performed By: #### L IPID, LIVER #### [facility] [address] [address] [address] Jill Euceda HDL NORMAL > or = 60 mg/dl - LO W CARDIOVASCULAR RISK <40 mg/dl - HIGH CARDIOVASCULAR RISK Normal [facility] Comment on above: Performed By: #### L IPID, LIVER #### [facility] [id number] Jill Euceda LDL CALC NORMAL SEE BELOW Normal [facility] Comment on above: Result Comment: <100 mg/dl OPTIMAL 100 - 129 mg/dl NEAR OR ABOVE OPTIMAL 130 - 159 mg/dl BORDERLINE HIGH 160 - 189 mg/dl HIGH >190 mg/dl VERY HIGH Performed By: #### L IPID, LIVER #### [facility] [address] [address] [address] Jill Euceda Triglyceride [Mass/Vol] 169 mg/dL Critically high <=150 [facility] Comment on above: Performed By: #### L IPID, LIVER #### [facility] [id number] Jill Euceda VLDL CALC 33.8 mg/dL Normal [facility] Comment on above: Performed By: #### L IPID, LIVER #### [facility] [address] [place] [address] Dr. Jill Euceda LIVER PROFILEon 07-06-2022 Albumin [Mass/Vol] 4.0 g/dL Normal 3.4-5.0 [facility] Comment on above: Performed By: #### L IPID, LIVER #### [facility] [address] [place] [address] Dr. Jill Euceda Albumin/Globulin [Mass ratio] 0.9 {ratio} Normal [facility] Comment on above: Performed By: #### L IPID, LIVER #### [facility] [address] [place] [address] Dr. Jill Euceda ALP [Catalytic activity/Vol] 96 U/L Normal 46-116 [facility] Comment on above: Performed By: #### L IPID, LIVER #### [facility] [address] [place] [address] Dr. Jill Euceda ALT [Catalytic activity/Vol] 34 U/L Normal 14-59 [facility] Comment on above: Performed By: #### L IPID, LIVER #### [facility] [address] [place] [address] Dr. Jill Euceda AST [Catalytic activity/Vol] 24 U/L Normal 15-37 [facility] Comment on above: Performed By: #### L IPID, LIVER #### [facility] [address] [place] [address] Dr. Jill Euceda BILI, CONJUGATED 0.1 mg/dL Normal 0.0-0.2 [facility] Comment on above: Performed By: #### L IPID, LIVER #### [facility] [address] [place] [address] Dr. Jill Euceda Bilirubin [Mass/Vol] 0.6 mg/dL Normal 0.2-1.0 [facility] Comment on above: Performed By: #### L IPID, LIVER #### [facility] [address] [place] [address] Dr. Jill Euceda Globulin (S) [Mass/Vol] 4.7 g/dL Normal [facility] Comment on above: Performed By: #### L IPID, LIVER #### [facility] [address], [place] [address] Dr. Jill Euceda Protein [Mass/Vol] 8.7 g/dL Critically high 6.4-8.2 T [facility] Comment on above: Performed By: #### L IPID, LIVER #### [facility] [address], [place] [address] Dr. Jill Euceda SCREENING MAMMOGRAM W/YULY, BILATERAL*on 04-18-2022 SCREENING MAMMOGRAM W/YULY, BILATERAL* COMPARISON: Dating back to February 17, 2019 and January 16, 2018. TECHNIQUE: 2D and 3D Tomosynthesis of the right and left breasts was performed. FINDINGS: Breast composition demonstrates almost entirely fat. Overall appearance stable. No suspicious microcalcifications, dominant mass lesions, or distortion is present. IMPRESSION: BI-RADS 1- Negative Mammogram Board Certified Radiologist. Accredited by the ACR and FDA. MAMMOGRAPHY IS VERY IMPORTANT TO YOUR HEALTH. THE CURRENT [place] [employer] OF [employer] AND [employer] COMPREHENSIVE [employer] NETWORK GUIDELINES RECOMMENDS ANNUAL MAMMOGRAPHY BEGINNING AT AGE 40 THIS FACILITY USES A REMINDER SYSTEM TO ENSURE ALL PATIENTS RECEIVE REMINDER NOTIFICATIONS AT THE APPROPRIATE TIME BASED ON THE RECOMMENDATIONS OF THIS EXAM. Report reported and signed by Johan Meyer on 04/18/2022 1550 Normal [facility] Sticker On XR Bone Density (DEXA)on XR Bone Density (DEXA) COMPARISON: None available. TECHNIQUE: The lumbar spine and both hips were scanned. FINDINGS: The mean bone mineral density from L1 through L4 is 0.775, and the T-score is -2.5, which is the standard deviation below the standard reference value for young adult. Bone mineral density of the left femoral neck is 0.634, and the T-score is -1.9, which is the standard deviation below the standard reference value for young adult. Bone mineral density of the right femoral neck is 0.649, and the T-score is -1.8, which is the standard deviation below the standard reference value for young adult. The lumbar values meet WHO criteria for osteoporosis. IMPRESSION: OSTEOPOROSIS. Report reported and signed by Rojas Sinha on 04/19/2022 0905 Normal [facility] Sticker On Sunil 04-12-2022 L -- ---- Specimen: [id number] Received: 04/13/22 Status: CHERRY Porter Num: [id number] Spec Type: Surgical Subm Dr: Seamus Rios DO Tissues: A Skin-Other than Cyst, tag, debridement or plastic repair (MID BACK) Procedures: S 100, HE/3, Chirag/Santa L4 ---- Age/ Patient Sex Location Account Attending Physician ---- Jennifer Mckenzie 81/F LIN [id number] Seamus Rios DO ---- SPEC NUM: [id number] RECD: 04/13/22 STATUS: CHERRY PORTER NUM: [id number] VICENTE: 04/12/22 [facility] DR: Seamus Rios DO ENTERED: 04/13/[address] [facility] [address]: Agus Tabor SPEC TYPE: Surgical DEPT: MAG SAENZ ORDERED: S 100, HE/3, Gross/Micro L4 ORDERED: S 100, HE/3, Gross/Micro L4 Pathological Diagnosis Skin, mid back, shave excision: - INTRADERMAL NEVUS. COMMENT: S100 garrido the nevus cells within the dermis. This supports the above diagnosis. For routine cloth tester quality purposes, the case has been prospectively reviewed with agreement during intradepartmental consultation. Clinical Information E78.5, pedunculated nevi Gross Description Received in formalin labeled with the patient's name, number and mid back is a 0.5 x 0.3 x 0.3 cm sultana-white, polypoid skin which is inked at the base.. Entirely submitted in one cassette labeled A1. Microscopic Description One glass slide with H E stained material has been examined. The microscopic findings support the above pathologic diagnosis. ---- Specimen: [id number] Received: 04/13/22 Status: CHERRY Milleresther Num: [id number] Spec Type: Surgical Subm Dr: Seamus Rios DO Tissues: A Skin-Other than Cyst, tag, debridement or plastic repair (MID BACK) Procedures: S 100, HE/3, Gross/Micro L4 ---- Patient: Jennifer Mckenzie [id number] (Continued) ---- Specimen: [id number] Received: 04/13/22 (Continued) Signed (signature on file) Sloane Fish MD 04/17/22 1523 ---- Specimen: [id number] Received: 04/13/22 Status: CHERRY Porter Num: [id number] Spec Type: Surgical Subm Dr: Seamus Rios DO Tissues: A Skin-Other than Cyst, tag, debridement or plastic repair (MID BACK) Procedures: S 100, HE/3, Gross/Santa L4 ---- Patient: Jennifer Mckenzie [id number] (Continued) ---- Specimen: [id number] Received: 04/13/22 (Continued) CPT Codes 13003; 17516 ---- ---- Specimen: [id number] Received: 04/13/22 Status: ALEKSANDRAAlicia German Num: [id number] Spec Type: Surgical Subm Dr: Seamus Rios DO Tissues: A Skin-Other than Cyst, tag, debridement or plastic repair (MID BACK) Procedures: S 100, HE/3, Gross/Micro L4 ---- Patient: Jennifer Mckenzie [id number] (Continued) ---- Signed (signature on file) Sloane Fish MD 04/17/22 1523 [facility] Vital Signs Date Time Vital Sign Value Performing Clinician Florence berry 09-21-2023 08:38-0400 Blood Pressure Location Flo JOHNSON [facility] 09-21-2023 08:38-0400 Body temperature 98.6 [degF] Flo JOHNSON [facility] 09-21-2023 08:38-0400 Diastolic blood pressure 63 mm[Hg] Flo JOHNSON [facility] 09-21-2023 08:38-0400 Heart rate 65 /min Floaleta JOHNSON [facility] 09-21-2023 08:38-0400 Respiratory rate 16 /min Flo JOHNSON [facility] 09-21-2023 08:38-0400 Systolic blood pressure 121 mm[Hg] Flo JOHNSON [facility] 05-11-2023 08:19-0500 Blood Pressure Location Flo JOHNSON [facility] 05-11-2023 08:19-0500 Diastolic blood pressure 79 mm[Hg] Flo JOHNSON [facility] 05-11-2023 08:19-0500 Heart rate 67 /min Flo JOHNSON [facility] 05-11-2023 08:19-0500 Respiratory rate 16 /min Flo JOHNSON [facility] 05-11-2023 08:19-0500 Systolic blood pressure 134 mm[Hg] Flo JOHNSON [facility] 05-01-2022 12:55-0500 Blood Pressure Location Flo JOHNSON [facility] 05-01-2022 12:55-0500 Diastolic blood pressure 72 mm[Hg] Flo JOHNSON [facility] 05-01-2022 12:55-0500 Heart rate 65 /min Flo JOHNSON [facility] 05-01-2022 12:55-0500 Respiratory rate 16 /min Flo JOHNSON [facility] 05-01-2022 12:55-0500 Systolic blood pressure 126 mm[Hg] Flo JOHNSON [facility] Encounters Encounter Date Encounter Type Care Provider Facility Start: 02-04-2024 ambulatory Flo JOHNSON Facili ty:[facility] Start: 12-18-2023 End: 12-18-2023 ambulatory Seamus Rios Facility: [facility] Start: 2023 End: 2023 ambulatory Seamus Rios Facility: [facility] Start: 09-21-2023 End: 09-21-2023 ambulatory Flo JOHNSON Facility:[facility] Start: 09-21-2023 End: 09-21-2023 Patient encounter procedure Flo JOHNSON [facility] Start: 09-13-2023 End: 09-13-2023 ambulatory Seamus Rios Facility: [facility] Start: 09-07-2023 End: 09-07-2023 ambulatory MIKE DELGADO [facility] Start: 09-04-2023 End: 09-04-2023 ambulatory SEAMUS JENNIFER Not Available Start: 06-14-2023 Telephone encounter Nuria Granados [facility] Start: 06-13-2023 Telephone encounter Christina Zavala CMA [facility] Start: 06-07-2023 End: 06-07-2023 ambulatory Seamus Rios Facility:[facility] Start: 05-30-2023 End: 05-30-2023 ambulatory SEAMUS RIOS [facility] Start: 05-11-2023 End: 05-11-2023 Lab Drop off Flo JOHNSON [facility] Start: 05-11-2023 End: 05-11-2023 ambulatory Flo JOHNSON Facility:[facility] Start: 05-11-2023 End: 05-11-2023 Patient encounter procedure Flo JOHNSON [facility] Start: 04-16-2023 End: 04-16-2023 ambulatory KATARZYNA BASHIR [facility] Start: 03-07-2023 End: 03-07-2023 ambulatory Seamus Rios Facility:[facility] Start: 02-08-2023 End: 02-08-2023 ambulatory Seamus Rios Facility:[facility] Start: 01-03-2023 End: 01-03-2023 ambulatory Seamus Rios Facility:[facility] Start: 01-02-2023 End: 01-02-2023 ambulatory Seamus Rios Facility:[facility] Start: 10-02-2022 End: 10-02-2022 ambulatory FOX CRUZ [facility] Start: 07-06-2022 End: 07-07-[address] OLIVEIRA LISTED REQUEST Facility: Start: 05-01-2022 End: 05-01-2022 Patient encounter procedure [facility]NSON [facility] Start: 04-12-2022 End: 04-12-2022 ambulatory Seamus Rios Facility:[facility] Start: 04-12-2022 End: 04-12-2022 ambulatory DO Seamus Rios Work Phone: [facility] Work Phone: Start: 04-12-2022 End: 04-12-2022 Departed Referred DO Seamus Rios Work Phone: [facility] Start: 03-10-2022 End: 03-10-2022 ambulatory ELVER KEEN . Facility: Procedures Date Procedure Procedure Detail Performing Clinician Start: 09-07-2023 Follow-up visit Follow-up MIKE DELGADO Start: 10-02-2022 Follow-up visit Follow-up FOX Elliott Start: 09-02-2022 Adult depression scr eening assessment Christina Zavala CMA Start: 12-18-2011 Cystourethroscopy wi th dilation of urethral stricture Flo JOHNSON Appendectomy Flo JOHNSON Extraction of cataract Kirstenmak JOHNSON H/O: hysterectomy Flo CHRIS TERBaylee Placement of stent i n cardiac conduit Flo JOHNSON Plan of Treatment Date Care Activity Detail Author Start: 10-19-2023 Adult BMI Screening Adult BMI Screening [facility] Start: 10-19-2023 Tobacco Screening Tobacco Screening [facility] Start: 09-03-2023 Depression Screening Depression Screening [facility] Start: 06-14-2023 End: 06-14-2023 Patient encounter procedure 06/14/2023 12:00 PM EDT Office Visit [facility] [address] [place] [address] Jarred Goldstein MD [address] [place] [address] [facility] Start: 11-24-2022 Influenza vaccination Influenza Vaccine [facility] Start: 08-24-2022 DTaP,Tdap and Td Vaccines (2 - Td or Tdap) DTaP,Tdap and Td Vaccines (2 - Td or Tdap) [facility] Start: 10-05-2007 Fall Risk Screening Fall Risk Screening [facility] Start: 1992 Administration of varicella zoster vaccine Zoster (Shingles) Vaccine (1 of 2) [facility] Start: 1940 Medicare Annual Wellness Visit Medicare Annual Wellness Visit [facility] Immunizations Immunization Date Immunization Notes Care Provider Fa cility 08-24-2012 tetanus and diphther ia toxoids, adsorbed, preservative free, for adult use (2 Lf of tetanus toxoid and 2 Lf of diphtheria toxoid) Flo JOHNSON [facility] 08-24-2012 tetanus and diphther ia toxoids, adsorbed, preservative free, for adult use (5 Lf of tetanus toxoid and 2 Lf of diphtheria toxoid) Christina Zavala [facility] NEGATED: Highlighted row has not occurred!01-30-2020 influenza virus vaccine, unspecified formulation Flo JOHNSON [facility] Payers Date Payer Category Payer Self-pay [id number] 2022 Medicare [employer] MEDICARE UHC MEDICARE ADVANTAGE PPO [id number] 2022-Present [phone] [address] [address] [place] [address] [id number] 1959 Medicare [id number] 1959 Medicare [id number] 1942 Unknown [id number] 2.16.840.1.885851.3.579. 2.593 1942 Unknown [id number] 2.16.840.1.779168.3.579. 2.593 1942 Unknown [id number] 2.16.840.1.158539.3.579. 2.1259 1942 Unknown [id number] 2.16.840.1.359978.3.579. 2.1286 1942 Unknown [id number] 2.16.840.1.046182.3.579. 2.1286 1942 Unknown [id number] 2.16.840.1.542354.3.579. 2.1286 1942 Unknown [id number] 2.16.840.1.725816.3.579. 2.727 1942 Unknown [id number] 2.16.840.1.752529.3.579. 2.727 1942 Unknown [id number] 2.16.840.1.004106.3.579. 2.72 1942 Unknown [id number] 2.16.840.1.115785.3.579. 2.727 1942 Unknown [id number] 2.16.840.1.342770.3.579. 2.71 1942 Unknown [id number] 2.16.840.1.334586.3.579. 2.71 1942 Unknown [id number] 2.16.840.1.452536.3.579. 2.71 1942 Unknown [id number] 2.16.840.1.449232.3.579. 2.71 1942 Unknown [id number] 2.16.840.1.879837.3.579. 2. 1942 Unknown [id number] 2.16.840.1.002167.3.579. 2.71 1942 Unknown [id number] 2.16.840.1.083534.3.579. 2. 1942 Unknown [id number] 2.16.840.1.712412.3.579. 2.718 Medicare Medicare [id number] Private Health Insurance [employer] [facility] PFFS [id number] Unknown [place] BC/BS [id number] Unknown [id number] 2.16.840.1.436652.3.579. 2.531 Social History Date Type Detail Facility Tobacco smoking stat [facility] Unknown if ever smoked [facility] Work Phone: Start: 1940 Sex Assigned At Female F [facility] Start: 01-31-2021 End: 09-21-2023 Tobacco smoking status Never smoked tobacco (finding) [facility] Start: 05-06-2020 End: 09-02-2022 Sex Assigned At Female [facility] Tobacco smoking status Never [facility] Start: 09-13-2022 Tobacco use and exposure Smokeless tobacco non-user [facility] Start: 10-18-2022 Alcohol intake Ex-drinker (finding) [facility] Start: 05-06-2020 End: 09-02-2022 History of Social function [facility] How often to you hav e a drink containing alcohol? Never [facility] Start: 1940 Sex Assigned At Not on file [facility] Medical Equipment Procedure Code Equipment Code Equipment Origin al Text Equipment Identifier Dates Lens Iol Ultrase rt 22.5d - [id number] - [id number] Start: 02-15-2021 Lens Iol Ultrase rt 22.5d - [id number] - [id number] Start: 03-01-2021 System Cor Stnt 2.25mm X 18mm 145cm Xience Skyp[employer] Mtlnk Juan - [id number] [facility] Start: 09-11-2022 Goals Date Patient Goal Desired Activity /State Personal health goal Comment on above: Formatting of this n ote might be different from the original. Evaluation of progress towards goal: Safe dc home with HHC and support from friends; pt declines recommendations for SNF/Swing Bed. Personal health goal Comment on above: Formatting of this n ote might be different from the original. Evaluation of progress towards goal: Pending PT/OT pt may benefit from IPR vs Home care. Functional Status Date Assessment Result Facility 09-21-2023 Functional Status N/A [facility] 05-11-2023 Functional Status N/A [facility] 05-01-2022 Functional Status N/A [facility] Clinical Notes 03-10-2022 to 12-19-2023 Telephone Encounter - Nuria Granados - 06/14/2023 8:28 AM EDTTelephone Encounter - Nuria Granados - 06/14/2023 8:28 AM EDTTelephone Encounter - Christina Zavala CMA - 06/13/2023 11:14 AM EDT Note Date & Type Note Facility 12-19-2023 Note - From: Coral Faith RN ([facility] ([facility] To: Seamus Rios DO; Sent: 12/19/2023 13:16:03 EDT Subject: Med Management Caller Name: JENNIFER MCKENZIE; Caller Number: H Caller is: ( X ) Patient ( ) Mother ( ) Father ( ) Pharmacy ( ) Other: Pharmacy to route Rx to: [facility] Patient's Provider: Reviewed Allergies: ( ) Yes ( ) No Pharmacy: [facility] Comments: 1. Name of Medication: ZETIA 10MG DAILY Dosage: Dispense: ( ) New ( ) Refill Comment: 2. Name of Medication: Dosage: Dispense: ( ) New ( ) Refill Comment: 3. Name of Medication: Dosage: Dispense: ( ) New ( ) Refill Comment: 4. Name of Medication: Dosage: Dispense: ( ) New ( ) Refill Comment: ( ) OK to leave message on voice mail ( ) Patient told to expect return call: ( ) today ( ) tomorrow ( ) next work day ( ) Patient's email ( ) Other: Call back phone # now: until: Call back phone # later: Submitted: Order:ezetimibe (ezetimibe 10 mg oral tablet) 1 tab(s) PO Daily Qty: 90 tab(s) Refills: 3 Substitutions Allowed Route To Pharmacy - [facility] Signed by Seamus Rios DO 12/19/2023 13:30:00 EDT [facility] 11-19-2023 Note - From: Coral Faith RN ([facility] ([facility] To: Seamus Rios DO; Sent: 11/19/2023 09:12:57 EDT Subject: Med Management Caller Name: JENNIFER MCKENZIE; Caller Number: H Caller is: ( X ) Patient ( ) Mother ( ) Father ( ) Pharmacy ( ) Other: Pharmacy to route Rx to: [facility] Patient's Provider: Reviewed Allergies: ( ) Yes ( ) No Pharmacy: [facility] Comments: 1. Name of Medication: PLAVIX 75MG DAILY Dosage: Dispense: ( ) New ( ) Refill Comment: 2. Name of Medication: Dosage: Dispense: ( ) New ( ) Refill Comment: 3. Name of Medication: Dosage: Dispense: ( ) New ( ) Refill Comment: 4. Name of Medication: Dosage: Dispense: ( ) New ( ) Refill Comment: ( ) OK to leave message on voice mail ( ) Patient told to expect return call: ( ) today ( ) tomorrow ( ) next work day ( ) Patient's email ( ) Other: Call back phone # now: until: Call back phone # later: Submitted: Order:clopidogrel (clopidogrel 75 mg oral tablet) 1 tab(s) Oral Daily Qty: 90 tab(s) Refills: 3 Substitutions Allowed Route To Pharmacy - [facility] Signed by Seamus Rios DO 11/19/2023 09:13:00 EDT [facility] 11-14-2023 Note - From: Coral Faith RN ([facility] ([facility] To: Seamus Rios DO; Sent: 11/14/2023 10:16:44 EDT Subject: Med Management Caller Name: JNENIFER MCKENZIE; Caller Number: H Caller is: ( X ) Patient ( ) Mother ( ) Father ( ) Pharmacy ( ) Other: Pharmacy to route Rx to: [facility] Patient's Provider: Reviewed Allergies: ( ) Yes ( ) No Pharmacy: [facility] Comments: 1. Name of Medication: LEVOTHYROXINE 50mcg DAILY Dosage: Dispense: ( ) New ( ) Refill Comment: 2. Name of Medication: METFORMIN 500MG DAILY Dosage: Dispense: ( ) New ( ) Refill Comment: 3. Name of Medication: Dosage: Dispense: ( ) New ( ) Refill Comment: 4. Name of Medication: Dosage: Dispense: ( ) New ( ) Refill Comment: ( ) OK to leave message on voice mail ( ) Patient told to expect return call: ( ) today ( ) tomorrow ( ) next work day ( ) Patient's email ( ) Other: Call back phone # now: until: Call back phone # later: Submitted: Order:metFORMIN (metFORMIN 500 mg oral tablet) 1 tab(s) PO Daily Qty: 90 tab(s) Refills: 3 Substitutions Allowed Route To Pharmacy - [facility] Signed by Seamus Rios DO 11/14/2023 10:25:00 EDT Submitted: Order:levothyroxine (Synthroid 50 mcg (0.05 mg) oral tablet) 1 tab(s) Oral Daily Qty: 90 tab(s) Refills: 3 Substitutions Allowed Route To Pharmacy - [facility] Signed by Seamus Rios DO 11/14/2023 10:25:00 EDT [facility] 11-05-2023 Note - From: Coral Faith RN ([facility] ([facility])) To: Seamus Rios DO; Sent: 11/05/2023 07:07:13 EDT Subject: FW: Medication Management Due Date/Time: 11/05/2023 06:36:00 EDT Caller Name: JENNIFER MCKENZIE; Caller Number: H From: [facility] #[id number] To: Seamus Rios DO Sent: November 04, 2023 5:36:07 AM CDT Subject: Medication Management Due: November 05, 2023 12:03:54 AM CDT On Hold Pending Signature Drug: clopidogrel (clopidogrel 75 mg oral tablet), 1 tab(s) PO Daily Quantity: 90 tab(s) Days Supply: 90 Refills: 0 Substitutions Allowed Notes from Pharmacy: Dispensed Drug: clopidogrel (clopidogrel 75 mg oral tablet), take 1 tablet by mouth once daily Quantity: 90 tab(s) Days Supply: 90 Refills: 0 Substitutions Allowed Notes from Pharmacy: From: Seamus Rios DO To: [facility] #[id number] Sent: 11/05/2023 07:16:54 EDT Subject: FW: Medication Management Submitted: Complete:clopidogrel (clopidogrel 75 mg oral tablet) Signed by Seamus Rios DO 11/05/2023 07:16:00 EDT Approved with modifications: clopidogrel (CLOPIDOGREL 75 MG TABLET) take 1 tablet by mouth once daily Qty: 90 tab(s) Days Supply: 90 Refills: 3 Substitutions Allowed Route To Pharmacy - [facility] #[id number] [facility] 09-21-2023 Hospital Discharg e instructions Patient Education 09/21/2023 09:11:11 Urinary Tract Infection, Adult Urinary Tract Infection, Adult A urinary tract infection (UTI) is an infection of any part of the urinary tract. The urinary tract includes the kidneys, ureters, bladder, and urethra. These organs make, store, and get rid of urine in the body. An upper UTI affects the ureters and kidneys. A lower UTI affects the bladder and urethra. What are the causes? Most urinary tract infections are caused by bacteria in your genital area around your urethra, where urine leaves your body. These bacteria grow and cause inflammation of your urinary tract. What increases the risk? You are more likely to develop this condition if: You have a urinary catheter that stays in place. You are not able to control when you urinate or have a bowel movement (incontinence). You are female and you: ?Use a spermicide or diaphragm for control. ?Have low estrogen levels. ?Are . You have certain genes that increase your risk. You are sexually active. You take antibiotic medicines. You have a condition that causes your flow of urine to slow down, such as: ?An enlarged prostate, if you are male. ?Blockage in your urethra. ?A kidney stone. ?A nerve condition that affects your bladder control (neurogenic bladder). ?Not getting enough to drink, or not urinating often. You have certain medical conditions, such as: ?Diabetes. ?A weak disease-fighting system (immunesystem). ?Sickle cell disease. ?Gout. ?Spinal cord injury. What are the signs or symptoms? Symptoms of this condition include: Needing to urinate right away (urgency). Frequent urination. This may include small amounts of urine each time you urinate. Pain or burning with urination. Blood in the urine. Urine that smells bad or unusual. Trouble urinating. Cloudy urine. Vaginal discharge, if you are female. Pain in the abdomen or the lower back. You may also have: Vomiting or a decreased appetite. Confusion. Irritability or tiredness. A fever or chills. Diarrhea. The first symptom in older adults may be confusion. In some cases, they may not have any symptoms until the infection has worsened. How is this diagnosed? This condition is diagnosed based on your medical history and a physical exam. You may also have other tests, including: Urine tests. Blood tests. Tests for STIs (sexually transmitted infections). If you have had more than one UTI, a cystoscopy or imaging studies may be done to determine the cause of the infections. How is this treated? Treatment for this condition includes: Antibiotic medicine. Izvv-gkz-sxkbaoy medicines to treat discomfort. Drinking enough water to stay hydrated. If you have frequent infections or have other conditions such as a kidney stone, you may need to see a health care provider who specializes in the urinary tract (urologist). In rare cases, urinary tract infections can cause sepsis. Sepsis is a life-threatening condition that occurs when the body responds to an infection. Sepsis is treated in the hospital with IV antibiotics, fluids, and other medicines. Follow these instructions at home: Medicines Take ldbf-bjq-pyzxgmd and prescription medicines only as told by your health care provider. If you were prescribed an antibiotic medicine, take it as told by your health care provider. Do not stop using the antibiotic even if you start to feel better. General instructions Make sure you: ?Empty your bladder often and completely. Do not hold urine for long periods of time. ?Empty your bladder after sex. ?Wipe from front to back after urinating or having a bowel movement if you are female. Use each tissue only one time when you wipe. Drink enough fluid to keep your urine pale yellow. Keep all follow-up visits. This is important. Contact a health care provider if: Your symptoms do not get better after 1 2 days. Your symptoms go away and then return. Get help right away if: You have severe pain in your back or your lower abdomen. You have a fever or chills. You have nausea or vomiting. Summary A urinary tract infection (UTI) is an infection of any part of the urinary tract, which includes the kidneys, ureters, bladder, and urethra. Most urinary tract infections are caused by bacteria in your genital area. Treatment for this condition often includes antibiotic medicines. If you were prescribed an antibiotic medicine, take it as told by your health care provider. Do not stop using the antibiotic even if you start to feel better. Keep all follow-up visits. This is important. This information is not intended to replace advice given to you by your health care provider. Make sure you discuss any questions you have with your health care provider. Document Revised: 10/22/2020 Document Reviewed: 10/22/2020 [employer] Patient Education 2022 [employer]. Follow Up Care 05/11/2023 09:00:33 With:JOSE MARIA MCDANIELS Flo Alvarez, ISSAC Address: [address] [place], [place] [id number]- When: Unknown [facility] 09-21-2023 Note Patient Education Obstetrics and Gynecology Urinary Tract Infection, Adult A urinary tract infection (UTI) is an infection of any part of the urinary tract. The urinary tract includes the kidneys, ureters, bladder, and urethra. These organs make, store, and get rid of urine in the body. An upper UTI affects the ureters and kidneys. A lower UTI affects the bladder and urethra. What are the causes? Most urinary tract infections are caused by bacteria in your genital area around your urethra, where urine leaves your body. These bacteria grow and cause inflammation of your urinary tract. What increases the risk? You are more likely to develop this condition if: ? You have a urinary catheter that stays in place. ? You are not able to control when you urinate or have a bowel movement (incontinence). ? You are female and you: ? Use a spermicide or diaphragm for control. ? Have low estrogen levels. ? Are . ? You have certain genes that increase your risk. ? You are sexually active. ? You take antibiotic medicines. ? You have a condition that causes your flow of urine to slow down, such as: ? An enlarged prostate, if you are male. ? Blockage in your urethra. ? A kidney stone. ? A nerve condition that affects your bladder control (neurogenic bladder). ? Not getting enough to drink, or not urinating often. ? You have certain medical conditions, such as: ? Diabetes. ? A weak disease-fighting system (immunesystem). ? Sickle cell disease. ? Gout. ? Spinal cord injury. What are the signs or symptoms? Symptoms of this condition include: ? Needing to urinate right away (urgency). ? Frequent urination. This may include small amounts of urine each time you urinate. ? Pain or burning with urination. ? Blood in the urine. ? Urine that smells bad or unusual. ? Trouble urinating. ? Cloudy urine. ? Vaginal discharge, if you are female. ? Pain in the abdomen or the lower back. You may also have: ? Vomiting or a decreased appetite. ? Confusion. ? Irritability or tiredness. ? A fever or chills. ? Diarrhea. The first symptom in older adults may be confusion. In some cases, they may not have any symptoms until the infection has worsened. How is this diagnosed? This condition is diagnosed based on your medical history and a physical exam. You may also have other tests, including: ? Urine tests. ? Blood tests. ? Tests for STIs (sexually transmitted infections). If you have had more than one UTI, a cystoscopy or imaging studies may be done to determine the cause of the infections. How is this treated? Treatment for this condition includes: ? Antibiotic medicine. ? Htkc-fgv-cjejufr medicines to treat discomfort. ? Drinking enough water to stay hydrated. If you have frequent infections or have other conditions such as a kidney stone, you may need to see a health care provider who specializes in the urinary tract (urologist). In rare cases, urinary tract infections can cause sepsis. Sepsis is a life-threatening condition that occurs when the body responds to an infection. Sepsis is treated in the hospital with IV antibiotics, fluids, and other medicines. Follow these instructions at home: Medicines ? Take wkbj-ziy-toeygob and prescription medicines only as told by your health care provider. ? If you were prescribed an antibiotic medicine, take it as told by your health care provider. Do not stop using the antibiotic even if you start to feel better. General instructions ? Make sure you: ? Empty your bladder often and completely. Do not hold urine for long periods of time. ? Empty your bladder after sex. ? Wipe from front to back after urinating or having a bowel movement if you are female. Use each tissue only one time when you wipe. ? Drink enough fluid to keep your urine pale yellow. ? Keep all follow-up visits. This is important. Contact a health care provider if: ? Your symptoms do not get better after 1?2 days. ? Your symptoms go away and then return. Get help right away if: ? You have severe pain in your back or your lower abdomen. ? You have a fever or chills. ? You have nausea or vomiting. Summary ? A urinary tract infection (UTI) is an infection of any part of the urinary tract, which includes the kidneys, ureters, bladder, and urethra. ? Most urinary tract infections are caused by bacteria in your genital area. ? Treatment for this condition often includes antibiotic medicines. ? If you were prescribed an antibiotic medicine, take it as told by your health care provider. Do not stop using the antibiotic even if you start to feel better. ? Keep all follow-up visits. This is important. This information is not intended to replace advice given to you by your health care provider. Make sure you discuss any questions you have with your health care provider. Document Revised: 10/22 (more content not included)... [facility] 06-14-2023 Miscellaneous Notes T/c to pt to r/s her [facility] appt as [facility] is out, no answer and no v/m. documented in this encounter [facility] 06-14-2023 Telephone encounter Note T/c to pt to r/s her [facility] appt as [facility] is out, no answer and no v/m. [facility] 06-13-2023 Miscellaneous Notes Called patient to remind them to bring their most current copy of their medication list with them to their appt. Patient verbalizes understanding. documented in this encounter [facility] 06-13-2023 Telephone encounter Note Called patient to remind them to bring their most current copy of their medication list with them to their appt. Patient verbalizes understanding. [facility] 05-25-2023 Note - From: Nola Kaufman ([facility] ([facility] To: Seamus Rios DO; Sent: 05/25/2023 11:21:31 EST Subject: Med Management Caller Name: JENNIFER MCKENZIE; Caller Number: H Caller is: ( x ) Patient ( ) Mother ( ) Father ( ) Pharmacy ( ) Other: Pharmacy to route Rx to: [facility] in [place] Patient's Provider: Reviewed Allergies: ( ) Yes ( ) No Pharmacy: [facility] in [place] Comments: 1. Name of Medication: clopidogrel (clopidogrel 75 mg oral tablet) Dosage: Dispense: ( ) New ( ) Refill Comment: 2. Name of Medication: Dosage: Dispense: ( ) New ( ) Refill Comment: 3. Name of Medication: Dosage: Dispense: ( ) New ( ) Refill Comment: 4. Name of Medication: Dosage: Dispense: ( ) New ( ) Refill Comment: ( ) OK to leave message on voice mail ( ) Patient told to expect return call: ( ) today ( ) tomorrow ( ) next work day ( ) Patient's email ( ) Other: Call back phone # now: until: Call back phone # later: Submitted: Order:clopidogrel (clopidogrel 75 mg oral tablet) 1 tab(s) PO Daily Qty: 90 tab(s) Refills: 3 Substitutions Allowed Route To Pharmacy - [facility] #[id number] Signed by Seamus Rios DO 05/25/2023 11:41:00 [facility] 05-11-2023 Hospital Discharg e instructions Patient Education 05/11/2023 08:50:57 Urinary Tract Infection, Adult Urinary Tract Infection, Adult A urinary tract infection (UTI) is an infection of any part of the urinary tract. The urinary tract includes the kidneys, ureters, bladder, and urethra. These organs make, store, and get rid of urine in the body. An upper UTI affects the ureters and kidneys. A lower UTI affects the bladder and urethra. What are the causes? Most urinary tract infections are caused by bacteria in your genital area around your urethra, where urine leaves your body. These bacteria grow and cause inflammation of your urinary tract. What increases the risk? You are more likely to develop this condition if: You have a urinary catheter that stays in place. You are not able to control when you urinate or have a bowel movement (incontinence). You are female and you: ?Use a spermicide or diaphragm for control. ?Have low estrogen levels. ?Are . You have certain genes that increase your risk. You are sexually active. You take antibiotic medicines. You have a condition that causes your flow of urine to slow down, such as: ?An enlarged prostate, if you are male. ?Blockage in your urethra. ?A kidney stone. ?A nerve condition that affects your bladder control (neurogenic bladder). ?Not getting enough to drink, or not urinating often. You have certain medical conditions, such as: ?Diabetes. ?A weak disease-fighting system (immunesystem). ?Sickle cell disease. ?Gout. ?Spinal cord injury. What are the signs or symptoms? Symptoms of this condition include: Needing to urinate right away (urgency). Frequent urination. This may include small amounts of urine each time you urinate. Pain or burning with urination. Blood in the urine. Urine that smells bad or unusual. Trouble urinating. Cloudy urine. Vaginal discharge, if you are female. Pain in the abdomen or the lower back. You may also have: Vomiting or a decreased appetite. Confusion. Irritability or tiredness. A fever or chills. Diarrhea. The first symptom in older adults may be confusion. In some cases, they may not have any symptoms until the infection has worsened. How is this diagnosed? This condition is diagnosed based on your medical history and a physical exam. You may also have other tests, including: Urine tests. Blood tests. Tests for STIs (sexually transmitted infections). If you have had more than one UTI, a cystoscopy or imaging studies may be done to determine the cause of the infections. How is this treated? Treatment for this condition includes: Antibiotic medicine. Jcwa-kdl-wfegana medicines to treat discomfort. Drinking enough water to stay hydrated. If you have frequent infections or have other conditions such as a kidney stone, you may need to see a health care provider who specializes in the urinary tract (urologist). In rare cases, urinary tract infections can cause sepsis. Sepsis is a life-threatening condition that occurs when the body responds to an infection. Sepsis is treated in the hospital with IV antibiotics, fluids, and other medicines. Follow these instructions at home: Medicines Take nzuq-rcr-fjlswho and prescription medicines only as told by your health care provider. If you were prescribed an antibiotic medicine, take it as told by your health care provider. Do not stop using the antibiotic even if you start to feel better. General instructions Make sure you: ?Empty your bladder often and completely. Do not hold urine for long periods of time. ?Empty your bladder after sex. ?Wipe from front to back after urinating or having a bowel movement if you are female. Use each tissue only one time when you wipe. Drink enough fluid to keep your urine pale yellow. Keep all follow-up visits. This is important. Contact a health care provider if: Your symptoms do not get better after 1 2 days. Your symptoms go away and then return. Get help right away if: You have severe pain in your back or your lower abdomen. You have a fever or chills. You have nausea or vomiting. Summary A urinary tract infection (UTI) is an infection of any part of the urinary tract, which includes the kidneys, ureters, bladder, and urethra. Most urinary tract infections are caused by bacteria in your genital area. Treatment for this condition often includes antibiotic medicines. If you were prescribed an antibiotic medicine, take it as told by your health care provider. Do not stop using the antibiotic even if you start to feel better. Keep all follow-up visits. This is important. This information is not intended to replace advice given to you by your health care provider. Make sure you discuss any questions you have with your health care provider. Document Revised: 10/22/2020 Document Reviewed: 10/22/2020 [employer] Patient Education 2022 [employer]. 05/11/2023 08:45:44 Urinary Tract Infection, Adult Urinary Tract Infection, Adult A urinary tract infection (UTI) is an infection of any part of the urinary tract. The urinary tract includes the kidneys, ureters, bladder, and urethra. These organs make, store, and get rid of urine in the body. An upper UTI affects the ureters and kidneys. A lower UTI affects the bladder and urethra. What are the causes? Most urinary tract infections are caused by bacteria in your genital area around your urethra, where urine leaves your body. These bacteria grow and cause inflammation of your urinary tract. What increases the risk? You are more likely to develop this condition if: You have a urinary catheter that stays in place. You are not able to control when you urinate or have a bowel movement (incontinence). You are female and you: ?Use a spermicide or diaphragm for control. ?Have low estrogen levels. ?Are . You have certain genes that increase your risk. You are sexually active. You take antibiotic medicines. You have a condition that causes your flow of urine to slow down, such as: ?An enlarged prostate, if you are male. ?Blockage in your urethra. ?A kidney stone. ?A nerve condition that affects your bladder control (neurogenic bladder). ?Not getting enough to drink, or not urinating often. You have certain medical conditions, such as: ?Diabetes. ?A weak disease-fighting system (immunesystem). ?Sickle cell disease. ?Gout. ?Spinal cord injury. What are the signs or symptoms? Symptoms of this condition include: Needing to urinate right away (urgency). Frequent urination. This may include small amounts of urine each time you urinate. Pain or burning with urination. Blood in the urine. Urine that smells bad or unusual. Trouble urinating. Cloudy urine. Vaginal discharge, if you are female. Pain in the abdomen or the lower back. You may also have: Vomiting or a decreased appetite. Confusion. Irritability or tiredness. A fever or chills. Diarrhea. The first symptom in older adults may be confusion. In some cases, they may not have any symptoms until the infection has worsened. How is this diagnosed? This condition is diagnosed based on your medical history and a physical exam. You may also have other tests, including: Urine tests. Blood tests. Tests for STIs (sexually transmitted infections). If you have had more than one UTI, a cystoscopy or imaging studies may be done to determine the cause of the infections. How is this treated? Treatment for this condition includes: Antibiotic medicine. Rzpa-jwb-qerrxld medicines to treat discomfort. Drinking enough water to stay hydrated. If you have frequent infections or have other conditions such as a kidney stone, you may need to see a health care provider who specializes in the urinary tract (urologist). In rare cases, urinary tract infections can cause sepsis. Sepsis is a life-threatening condition that occurs when the body responds to an infection. Sepsis is treated in the hospital with IV antibiotics, fluids, and other medicines. Follow these instructions at home: Medicines Take yzfu-kms-bsopcxp and prescription medicines only as told by your health care provider. If you were prescribed an antibiotic medicine, take it as told by your health care provider. Do not stop using the antibiotic even if you start to feel better. General instructions Make sure you: ?Empty your bladder often and completely. Do not hold urine for long periods of time. ?Empty your bladder after sex. ?Wipe from front to back after urinating or having a bowel movement if you are female. Use each tissue only one time when you wipe. Drink enough fluid to keep your urine pale yellow. Keep all follow-up visits. This is important. Contact a health care provider if: Your symptoms do not get better after 1 2 days. Your symptoms go away and then return. Get help right away if: You have severe pain in your back or your lower abdomen. You have a fever or chills. You have nausea or vomiting. Summary A urinary tract infection (UTI) is an infection of any part of the urinary tract, which includes the kidneys, ureters, bladder, and urethra. Most urinary tract infections are caused by bacteria in your genital area. Treatment for this condition often includes antibiotic medicines. If you were prescribed an antibiotic medicine, take it as told by your health care provider. Do not stop using the antibiotic even if you start to feel better. Keep all follow-up visits. This is important. This information is not intended to replace advice given to you by your health care provider. Make sure you discuss any questions you have with your health care provider. Document Revised: 10/22/2020 Document Reviewed: 10/22/2020 [employer] Patient Education 2022 [employer]. Follow Up Care 05/01/2022 14:14:03 With:JOSE MARIA MCDANIELS, Flo Alvarez, URL Address: [address] [place] [id number]- When: Unknown [facility] 03-02-2023 Note - From: Coral Faith RN ([facility] ([facility] To: Seamus Rios DO; Sent: 03/02/2023 10:26:14 EST Subject: Med Management Caller Name: KEVIN JENNIFER COLÓN; Caller Number: H Caller is: ( X ) Patient ( ) Mother ( ) Father ( ) Pharmacy ( ) Other: Pharmacy to route Rx to: [facility] Patient's Provider: Reviewed Allergies: ( ) Yes ( ) No Pharmacy: [facility] Comments: WAS [facility] BUT [facility] ARE OUT. SHE WOULD LIKE SENT TO [facility] [place]. 1. Name of Medication: ELIQUIS 5MG BID Dosage: Dispense: ( ) New ( ) Refill Comment: 2. Name of Medication: Dosage: Dispense: ( ) New ( ) Refill Comment: 3. Name of Medication: Dosage: Dispense: ( ) New ( ) Refill Comment: 4. Name of Medication: Dosage: Dispense: ( ) New ( ) Refill Comment: ( ) OK to leave message on voice mail ( ) Patient told to expect return call: ( ) today ( ) tomorrow ( ) next work day ( ) Patient's email ( ) Other: Call back phone # now: until: Call back phone # later: Submitted: Order:apixaban (Eliquis 5 mg oral tablet) 1 tab(s) Oral BID Qty: 180 tab(s) Refills: 3 Substitutions Allowed Route To Pharmacy - [facility] [id number] Signed by Seamus Rios DO 03/02/2023 10:44:00 [facility] 02-28-2023 Note - From: Coral Faith RN ([facility] ([facility] To: Seamus Rios DO; Sent: 02/28/2023 08:56:39 [facility] Subject: Med Management Caller Name: JENNIFER MCKENZIE; Caller Number: H Caller is: ( X ) Patient ( ) Mother ( ) Father ( ) Pharmacy ( ) Other: [facility] Patient's Provider: Reviewed Allergies: ( ) Yes ( ) No [facility]acy[facility] Comments: THIS IS NOT ON HER MED LIST. ON REVIEW - SHE DIDN'T HAVE THE BOTTLE AT HER APPT BUT CALLED BACK AFTERWARDS AND SAID SHE FOUND IT AT HOME. 1. Name of Medication: ELIQUIS 5MG BID Dosage: Dispense: ( ) New ( ) Refill Comment: 2. Name of Medication: Dosage: Dispense: ( ) New ( ) Refill Comment: 3. Name of Medication: Dosage: Dispense: ( ) New ( ) Refill Comment: 4. Name of Medication: Dosage: Dispense: ( ) New ( ) Refill Comment: ( ) OK to leave message on voice mail ( ) Patient told to expect return call: ( ) today ( ) tomorrow ( ) next work day ( ) Patient's email ( ) Other: Call back phone # now: until: Call back phone # later: Submitted: Order:apixaban (Eliquis 5 mg oral tablet) 1 tab(s) Oral BID Qty: 60 tab(s) Refills: 3 Substitutions Allowed Route To Pharmacy - [facility] #[id number] Signed by Seamus Rios DO 02/28/2023 09:28:00 [facility] 02-19-2023 Note - From: Coral Faith RN ([facility] ([facility] To: Seamus Rios DO; Sent: 02/19/2023 09:18:54 EST Subject: Med Management Caller Name: JENNIFER MCKENZIE; Caller Number: H Caller is: ( X ) Patient ( ) Mother ( ) Father ( ) Pharmacy ( ) Other: Pharmacy to route Rx to: [facility] Patient's Provider: Reviewed Allergies: ( ) Yes ( ) No Pharmacy: [facility] Comments: 1. Name of Medication: METFORMIN 500MG DAILY Dosage: Dispense: ( ) New ( ) Refill Comment: 2. Name of Medication: Dosage: Dispense: ( ) New ( ) Refill Comment: 3. Name of Medication: Dosage: Dispense: ( ) New ( ) Refill Comment: 4. Name of Medication: Dosage: Dispense: ( ) New ( ) Refill Comment: ( ) OK to leave message on voice mail ( ) Patient told to expect return call: ( ) today ( ) tomorrow ( ) next work day ( ) Patient's email ( ) Other: Call back phone # now: until: Call back phone # later: Submitted: Order:metFORMIN (metFORMIN 500 mg oral tablet) 1 tab(s) PO Daily Qty: 90 tab(s) Refills: 3 Substitutions Allowed Route To Pharmacy - [facility] #[id number] Signed by Seamus Rios DO 02/19/2023 09:35:00 [facility] 02-14-2023 Note - From: Coral Faith RN ([facility] ([facility] To: Seamus Rios DO; Sent: 02/14/2023 15:13:30 EST Subject: FW: Medication Management Due Date/Time: 02/15/2023 15:11:00 EST Caller Name: JENNIFER MCKENZIE; Caller Number: H [facility]: [id number] To: Seamus Rios DO Sent: February 14, 2023 2:11:37 PM [facility] Subject: Medication Management Due: February 15, 2023 12:10:59 AM [facility] On Hold Pending [facility] Drug: clopidogrel (clopidogrel 75 mg oral tablet), 1 tab(s) PO Daily Quantity: 90 tab(s) Days Supply: 90 Refills: 0 Substitutions Allowed Notes from Pharmacy: Dispensed Drug: clopidogrel (clopidogrel 75 mg oral tablet), take 1 tablet by mouth once daily Quantity: 90 tab(s) Days Supply: 90 Refills: 0 Substitutions Allowed Notes from Pharmacy: From: Seamus Rios DO To: [facility] #[id number] Sent: 02/14/2023 15:23:37 EST Subject: FW: Medication Management Approved with modifications: clopidogrel (CLOPIDOGREL 75 MG TABLET) take 1 tablet by mouth once daily Qty: 90 tab(s) Days Supply: 90 Refills: 3 Substitutions Allowed Route To [facility]acy - [id number] 12-21-2022 Note - From: Coral Faith ([facility] ([facility])) To: Seamus Rios DO; Sent: 12/21/2022 10:36:38 EDT Subject: Med Management Caller Name: JENNIFER MCKENZIE; Caller Number: H Caller is: ( X ) Patient ( ) Mother ( ) Father ( ) Pharmacy ( ) Other: Pharmacy to route Rx to: [facility] Patient's Provider: Reviewed Allergies: ( ) Yes ( ) No Pharmacy: [facility] Comments: 1. Name of Medication: LEVOTHYROXINE 25mcg DAILY Dosage: Dispense: ( ) New ( ) Refill Comment: 2. Name of Medication: METOPROLOL SUCCINATE 100MG DAILY Dosage: Dispense: ( ) New ( ) Refill Comment: 3. Name of Medication: Dosage: Dispense: ( ) New ( ) Refill Comment: 4. Name of Medication: Dosage: Dispense: ( ) New ( ) Refill Comment: ( ) OK to leave message on voice mail ( ) Patient told to expect return call: ( ) today ( ) tomorrow ( ) next work day ( ) Patient's email ( ) Other: Call back phone # now: until: Call back phone # later: Submitted: Order:levothyroxine (Synthroid 25 mcg (0.025 mg) oral tablet) 1 tab(s) PO Daily Qty: 90 tab(s) Refills: 3 Substitutions Allowed Route To Pharmacy - [facility] #[id number] Signed by Seamus Rios DO 12/21/2022 10:50:00 EDT Submitted: Order:metoprolol (metoprolol succinate 100 mg oral tablet, extended release) 1 tab(s) PO Daily Qty: 90 tab(s) Refills: 3 Substitutions Allowed Route To Pharmacy - [facility] #[id number] Signed by Seamus Rios DO 12/21/2022 10:50:00 EDT [facility] 10-02-2022 Note RHEUMATOLOGY CLINIC NOTE Rheumatology was consulted for concern for myositis initially due to generalized weakness. See summary above for initial presentation. Interval history Since leaving the hospital, Jennifer reported that she is in a rehab facility and participating in therapy. She notes improvement of her weakness overall. She feels stronger, she is doing grooming on her own, she can stand up with help of walker. She also goes to toilet on her own and can get up with help of the bars next to the toilet. She denies any new rashes, especially around eye/knuckles areas. We discussed her muscle biopsy results, which showed no evidence of dermatomyositis, but some Denervation atrophy with associated reinnervation, myopathy, and Type 2 fiber atrophy. At this time, there is little evidence to point to definite inflammatory myositis. Initial presentation: Jennifer Mckenzie is a 81 y.o. female with a pmh of Parkinson's and HLD who presented initially to [facility] on 09/01/[address] brain without acute intracranial process. CTA head neck without large vessel occlusion. Patient was transferred to [facility] 09/02 for concern for stroke. WBC 21.8. CRP 33, ESR 129. MR brain 09/03 showed no acute or subacute infarct however, further review showed 2 distinct isolated small lesions likely secondary to small-vessel disease versus hypercoagulable state. Upon further review, patient having significant upper and lower extremity weakness, with cervical spine point tenderness. MRI cervical spine showing edematous changes along left lateral cervical vertebrae, concern for possible dermato/polymyositis. Normal CK levels, mildly elevated aldolase levels. When speaking with patient, reports her PCP started her on atorvastatin beginning of July for elevated cholesterol blood levels. Starting beginning of August, started noticing diffuse muscle aches/pain and weakness. Patient denied any history of family history of autoimmune diseases. Denies any photosensitive sun rash, dry eyes/mouth, alopecia, unusual skin rashes, Raynaud's, chest pain/sob/pluerisy, hx of blood clots or miscarriages. Work-up: MR cervical spine w and wo contrast Order: [id number] Narrative MR CERVICAL SPINE W WO CONT CLINICAL INFORMATION:Neck pain, acute, infection suspected upper and lower extremity weakness, cervical spine tenderness. TECHNIQUE: Routine multiplanar multisequence MR imaging of the cervical spine was performed prior to and following the uncomplicated administration of 13 mL Prohance intravenous contrast. COMPARISON:No relevant prior studies available. FINDINGS: Edema and enhancement within the paraspinal musculature deep to the trapezius [likely cyst splenius, left more so than right. Subtle suggestion of right rotator cuff muscular edema. Preserved cervical vertebral body heights. No suspicious bone marrow replacing process. Trace edema about the left C7-T1 posterior facet, likely degenerative. Cord visualized from the brainstem through the upper thoracic spine. No gross cord compression or cord signal abnormality. Small areas of signal change dorsal fab may relate to sequela of chronic microvascular ischemia. No pathologic intramedullary enhancement Multilevel discogenic disease, surgical device sales representative levels detailed below: C4-C5:Posterior disc osteophyte complex, likely mentum flavum thickening. Mild/moderate focal thecal sac narrowing [subtle flattening ventral cord with patent subarachnoid space posterior to cord]. Moderate to severe right, moderate left, neural foraminal narrowing. C5-C6:Mild focal thecal sac narrowing. Mild/moderate left greater the right neural foraminal narrowing. C6-C7:Small posterior disc osteophyte complex. Mild focal thecal sac narrowing. Mild right greater than left neural foraminal narrowing. IMPRESSION: No findings to suggest cervical discitis, osteomyelitis. Nonspecific edema and enhancement within the left greater than right lateral cervical spine paraspinal musculature [likely splenius], no drainable collection. Please correlate for clinical signs of myositis [such as dermatomyositis/polymyositis]. Suspect some degree of edema within the right rotator cuff musculature as well. Finalized by Nasim Lima MD on 09/05/2022 10:12 AM ----- Final Pathologic Diagnosis Left thigh muscle biopsy: Portion of muscle tissue as described, submitted for further studies to [facility] (gross examination only). Report Electronically Signed Out wak/09/14/2022Deondre Arzola MD Addendum ([facility]) Date Reported: 09/20/2022 Results of Muscle Pathology Consultation dated 09/19/2022 are received from Priyanka Sierra (more content not included)... [facility] 05-01-2022 Hospital Discharg e instructions Patient Education 05/01/2022 08:39:44 Overactive Bladder, Adult Overactive Bladder, Adult Overactive bladder refers to a condition in which a person has a sudden need to pass urine. The person may leak urine if he or she cannot get to the bathroom fast enough (urinary incontinence). A person with this condition may also wake up several times in the night to go to the bathroom. Overactive bladder is associated with poor nerve signals between your bladder and your brain. Your bladder may get the signal to empty before it is full. You may also have very sensitive muscles that make your bladder squeeze too soon. These symptoms might interfere with daily work or social activities. What are the causes? This condition may be associated with or caused by: Urinary tract infection. Infection of nearby tissues, such as the prostate. Prostate enlargement. Surgery on the uterus or urethra. Bladder stones, inflammation, or tumors. Drinking too much caffeine or alcohol. Certain medicines, especially medicines that get rid of extra fluid in the body (diuretics). Muscle or nerve weakness, especially from: ?A spinal cord injury. ?Stroke. ?Multiple sclerosis. ?Parkinson's disease. Diabetes. Constipation. What increases the risk? You may be at greater risk for overactive bladder if you: Are an older adult. Smoke. Are going through menopause. Have prostate problems. Have a neurological disease, such as stroke, dementia, Parkinson's disease, or multiple sclerosis (MS). Eat or drink things that irritate the bladder. These include alcohol, spicy food, and caffeine. Are overweight or obese. What are the signs or symptoms? Symptoms of this condition include: Sudden, strong urge to urinate. Leaking urine. Urinating 8 or more times a day. Waking up to urinate 2 or more times a night. How is this diagnosed? Your health care provider may suspect overactive bladder based on your symptoms. He or she will diagnose this condition by: A physical exam and medical history. Blood or urine tests. You might need bladder or urine tests to help determine what is causing your overactive bladder. You might also need to see a health care provider who specializes in urinary tract problems (urologist). How is this treated? Treatment for overactive bladder depends on the cause of your condition and whether it is mild or severe. You can also make lifestyle changes at home. Options include: Bladder training. This may include: ?Learning to control the urge to urinate by following a schedule that directs you to urinate at regular intervals (timed voiding). ?Doing Kegel exercises to strengthen your pelvic floor muscles, which support your bladder. Toning these muscles can help you control urination, even if your bladder muscles are overactive. Special devices. This may include: ?Biofeedback, which uses sensors to help you become aware of your body's signals. ?Electrical stimulation, which uses electrodes placed inside the body (implanted) or outside the body. These electrodes send gentle pulses of electricity to strengthen the nerves or muscles that control the bladder. ?Women may use a plastic device that fits into the vagina and supports the bladder (pessary). Medicines. ?Antibiotics to treat bladder infection. ?Antispasmodics to stop the bladder from releasing urine at the wrong time. ?Tricyclic antidepressants to relax bladder muscles. ?Injections of botulinum toxin type A directly into the bladder tissue to relax bladder muscles. Lifestyle changes. This may include: ?Weight loss. Talk to your health care provider about weight loss methods that would work best for you. ?Diet changes. This may include reducing how much alcohol and caffeine you consume, or drinking fluids at different times of the day. ?Not smoking. Do not use any products that contain nicotine or tobacco, such as cigarettes and e-cigarettes. If you need help quitting, ask your health care provider. Surgery. ?A device may be implanted to help manage the nerve signals that control urination. ?An electrode may be implanted to stimulate electrical signals in the bladder. ?A procedure may be done to change the shape of the bladder. This is done only in very severe cases. Follow these instructions at home: Lifestyle Make any diet or lifestyle changes that are recommended by your health care provider. These may include: ?Drinking less fluid or drinking fluids at different times of the day. ?Cutting down on caffeine or alcohol. ?Doing Kegel exercises. ?Losing weight if needed. ?Eating a healthy and balanced diet to prevent constipation. This may include: ?Eating foods that are high in fiber, such as fresh fruits and vegetables, whole grains, and beans. ?Limiting foods that are high in fat and processed sugars, such as fried and sweet foods. General instructions Take uwan-nup-gyxoqrc and prescription medicines only as told by your health care provider. If you were prescribed an antibiotic medicine, take it as told by your health care provider. Do not stop taking the antibiotic even if you start to feel better. Use any implants or pessary as told by your health care provider. If needed, wear pads to absorb urine leakage. Keep a journal or log to track how much and when you drink and when you feel the need to urinate. This will help your health care provider monitor your condition. Keep all follow-up visits as told by your health care provider. This is important. Contact a health care provider if: You have a fever. Your symptoms do not get better with treatment. Your pain and discomfort get worse. You have more frequent urges to urinate. Get help right away if: You are not able to control your bladder. Summary Overactive bladder refers to a condition in which a person has a sudden need to pass urine. Several conditions may lead to an overactive bladder. Treatment for overactive bladder depends on the cause and severity of your condition. Follow your health care provider's instructions about lifestyle changes, doing Kegel exercises, keeping a journal, and taking medicines. This information is not intended to replace advice given to you by your health care provider. Make sure you discuss any questions you have with your health care provider. Document Released: 01/06/2010 Document Revised: 07/03/2019 Document Reviewed: 03/28/2018 [employer] Patient Education 2020 [employer] Follow Up Care 01/31/2021 12:27:14 With:JOSE MARIA MCDANIELS, Flo Alvarez, URL Address: [facility] [address] , [place] [address]- [phone] When:05/01/2023 [facility] 03-10-2022 Note PROCEDURE: XR HIP LT 2 3V W PELVIS, XR SACRUM_COCCYX HISTORY: Pain ; left leg pain radiating to knee for 3 weeks; no known injury COMPARISON: None. FINDINGS: BONES:No fracture, acute abnormality, or significant arthropathy. SOFT TISSUES:No visible soft tissue swelling. EFFUSION:None visible. SACRUM: No fracture, disruption of the sacral ala line, or cortical irregularity. COCCYX: No fracture or suspicious alignment. OTHER: Marked degenerative disc disease L4-L5, L5-S1. IMPRESSION: 1. Marked degenerative disc disease of lower lumbar spine. 2. Mild degenerative change of the hip joints. No acute bone abnormality. 3. Unremarkable sacrum and coccyx. Electronically authenticated by: SEAMUS LARA Date: 2022-03-10 11:50 [facility] 03-10-2022 Note PROCEDURE: XR HIP LT 2 3V W PELVIS, XR SACRUM_COCCYX HISTORY: Pain ; left leg pain radiating to knee for 3 weeks; no known injury COMPARISON: None. FINDINGS: BONES:No fracture, acute abnormality, or significant arthropathy. SOFT TISSUES:No visible soft tissue swelling. EFFUSION:None visible. SACRUM: No fracture, disruption of the sacral ala line, or cortical irregularity. COCCYX: No fracture or suspicious alignment. OTHER: Marked degenerative disc disease L4-L5, L5-S1. IMPRESSION: 1. Marked degenerative disc disease of lower lumbar spine. 2. Mild degenerative change of the hip joints. No acute bone abnormality. 3. Unremarkable sacrum and coccyx. Electronically authenticated by: SEAMUS LARA Date: 2022-03-10 11:50 [facility] Evaluation + Plan note Future Appointments Appointment Date:05/11/2023 08:00:00 AM Scheduled Provider:Flo JOHNSON MD Location:[facility] Appointment Type:URO Office Visit [facility] Evaluation + Plan note Future Appointments Appointment Date:09/21/2023 08:30:00 AM Scheduled Provider:Flo JOHNSON MD Location:[facility] Appointment Type:URO Office Visit Diagnostic Tests PendingUrine Culture 05/11/23 [facility] Evaluation + Plan note Future Appointments Appointment Date:09/21/2023 08:30:00 AM Scheduled Provider:Flo JOHNSON MD Location:[facility] Appointment Type:URO Office Visit [facility] Evaluation + Plan note Future Appointments Appointment Date:02/04/2024 10:15:00 AM Scheduled Provider:Flo JOHNSON MD Location:[facility] Appointment Type:URO Office Visit [facility] Evaluation note No assessment inform ation available [facility] Work Phone: Hospital course Narrative No data available for this section [facility] Hospital Discharge instructions No data available for this section [facility] Instructions Not on filedocumente d in this encounter [facility] No data available for this section [facility] Summary Purpose Family History No Family History Records FoundNo Family History Records FoundNo Family History Records FoundNo Family History Records Found No data available for this section No data available for this section No Family History Records FoundNo Family History Records Found No data available for this section No Family History Records FoundNo Family History Records Found Advance Directives No Advanced Directives Records FoundLatest Code Status on File Code Status Date Activated Date Inactivated Comments Full Code 09/02/2022 2:12 PM 09/16/2022 5:24 AM Code Status History Code Status Date Activated Date Inactivated Comments Full Code 11/26/2020 3:31 PM 11/30/2020 11:09 PM Additional Source Comments Care Teams (unrecognized sec tion and content) Team Status: Inactive Member Role Status Dates Seamus Rios DO Primary Care Provider, Manuel hamilton Active Team Status: Active Member Role Status Dates Seamus Rios DO Primary Care Provider Active Prevention Coordinator Relationship Specialty Start Date End Date Seamus Rios DO [address] [place] [address] PCP - General Family Medicine 11/23/16 Goals (unrecognized section and content) Goals may be documented in a n alternate section No data available for this section No data available for this section No data available for this section No data available for this section INFORMATION SOURCE (unrecogn ized section and content) DATE CREATED AUTHOR 04/19/2022 [facility] DATE CREATED AUTHOR AUTHOR'S ORGANIZ ATION 04/19/2022 [facility] dical Specialist DATE CREATED AUTHOR AUTHOR'S ORGANIZ ATION 07/12/2022 [facility] DATE CREATED AUTHOR AUTHOR'S ORGANIZ ATION 10/23/2022 [facility] DATE CREATED AUTHOR AUTHOR'S ORGANIZ ATION 09/05/2023 [facility] dical Specialists [facility] DATE CREATED AUTHOR AUTHOR'S ORGANIZ ATION 09/08/2023 [facility] DATE CREATED AUTHOR AUTHOR'S ORGANIZ ATION 09/22/2023 [facility] DATE CREATED AUTHOR AUTHOR'S ORGANIZ ATION 12/20/2023 [facility] FOR RECORDS PERTAINING TO PATIENTS WHO ARE OR HAVE BEEN ENROLLED IN A CHEMICAL DEPENDENCY/SUBSTANCEABUSE PROGRAM, SOME INFORMATION MAY BE OMITTED. This clinical summary was aggregated from multiple sources. Caution should be exercised in using it in the provision of clinical care. This summary normalizes information from multiple sources, and as a consequence, information in this document may materially change the coding, format and clinical context of patient data. In addition, data may be omitted in some cases. CLINICAL DECISIONS SHOULD BE BASED ON THE PRIMARY CLINICAL RECORDS. [employer] [facility]. provides no warranty or guarantee of the accuracy or completeness of information in this document.
[2024-01-10 11:00] LABS: Basophils Absolute Auto 0.1 10^3/uL (0.0-0.1); Basophils Percent Auto 0.5 % (0.2-2.0); Eosinophils Absolute Auto 0.2 10^3/uL (0.0-0.7); Eosinophils Percent Auto 1.9 % (0.9-7.0); Hematocrit 43.8 % (36.0-48.0); Hemoglobin 14.7 g/dL (12.0-16.0); Immature Granulocytes Abs Auto 0.02 10^3/uL (0.00-0.03); Immature Granulocytes Pct Auto 0.2 % (0.0-0.5); Lymphocytes Absolute Auto 2.3 10^3/uL (1.2-3.8); Lymphocytes Percent Auto 25.2 % (20.5-60.0); Mean Corpuscular HGB Conc 33.6 g/dL (29.9-35.2); Mean Corpuscular Volume 95.2 fL (81.0-99.0); Mean Platelet Volume 10.1 fL (9.5-13.5); Monocytes Absolute Auto 1.1 10^3/uL (0.3-0.8); Neutrophils Absolute Auto 5.6 10^3/uL (1.4-6.5); Neutrophils Percent Auto 60.2 % (43.0-75.0); Platelet Count 261 10^3/uL (150-450); Red Cell Distribution Width 13.2 % (11.0-15.0); White Blood Count 9.3 10^3/uL (4.0-11.0)
[2024-01-10 12:21] LABS: Alanine Aminotransferase 24 U/L (14-59); Albumin Globulin Ratio 0.8; Albumin Level 3.7 g/dL (3.4-5.0); Alkaline Phosphatase 79 U/L (46-116); Anion Gap 14.7; Aspartate Amino Transferase 24 U/L (15-37); BUN Creatinine Ratio 13.6; Bilirubin Total 0.5 mg/dL (0.2-1.0); Calcium 9.6 mg/dL (8.5-10.1); Carbon Dioxide 26.6 mmol/L (21.0-32.0); Chloride 103 mmol/L (98-107); Estimated GFR (African America 50 (>=60 mL/min/1.73m^2); Estimated GFR (Non-African Ame 41 (>=60 mL/min/1.73m^2); Globulin 4.8 g/dL; Glucose 105 mg/dL (74-106); Potassium 4.3 mmol/L (3.5-5.1); Sodium 140 mmol/L (136-145); Thyroid Stimulating Hormone 4.006 uIU/mL (0.358-3.740); Total Protein 8.5 g/dL (6.4-8.2)
[2024-01-10 12:25] LABS: Free T4 1.12 ng/dL (0.76-1.46)
== END 2024-01-10 10:27 | disposition home or self-care (01) ==
LOC: LAB 10:31
PROVIDERS: Visit Provider Family Medicine
DX: E03.9 Hypothyroidism, unspecified (principal); E78.5 Hyperlipidemia, unspecified
CPT/HCPCS: 36415; 80053; 84439; 84443; 85025

== ENCOUNTER 2024-01-10 10:56 | Emergency (ER) | payer MEDICARE, SELFPAY ==
[2024-01-10 11:03] VITALS: BP 138/70; PULSE 62; TEMP 36.5; O2SAT 96; BMI 24.9
--- OUTSIDE RECORDS SUMMARY | 2024-01-10 11:22 | XMS_ITS | CCD ---
Author Organization [facility] Care Team Providers Care Bladder Changer Name Role Phone DO Seamus Rios Primary Care Provider DO Seamus Rios Attending Provider Seamus Rios Attending Unavailable Seamus Rios Primary [...] (severity modifier) (qualifier value) [facility] Comment on above: teramiacin (9 sources) Penicillins; Translations: [penicillins] Drug allergy 11-08-19 16 Moderate (severity modifier) (qualifier value) [facility] (3 sources) Oxytetracycline; Translations: [TERRAMYCIN] Drug Allergy 11-08-19 16 [facility] Repository (1 source) penciclovir; Translations: [PENCICLOVIR] Drug Allergy 10-03-19 [facility] Repository (3 sources) HMG-CoA reductase inhibitor; Translations: [TJPFSWI-EFG-XDH REDUCTASE INHIBITORS] Propensity to adverse reactions to drug 09-10-19 23 Other (See Comments) [facility] (2 sources) Oxytetracycline Drug Allergy 02-16-20 [facility] (1 source) Hmg-Coa Reductase Inhibitors (Statins); Translations: [statins] Propensity to adverse reactions to drug (disorder) [facility] Repository (1 source) Penicillin; Translations: [penicillin] Drug Allergy [facility] Repository Medications Current Medications Medication Drug Class(es) [...] Ordered docusate sodium 50 mg / sennosides, mcc 8.6 mg oral tablet (2 sources) take [...] size amount around the urethra, [id number], 163, cm, 05/01/22 13:29:00 EST, Height/Length Dosing, [...] 7 tab(s), Refills(s) 0, [facility]: [id number], 163, cm, 05/11/23 8:21:00 EST, Height/Length Dosing, [...] BID, 20 tab(s), Refill(s) 0, [facility][id number], 163, cm, 09/21/23 9:00:00 EDT, Height/Length Dosing, 59.3, kg, 09/21/23 9:00:00 EDT, Weight Dosing Start Date: 09/21/23 Status: Ordered Start: 09-21-2023 End: 09-15-2024 Bactrim D.S. 800 mg-160 mg T ab 1 tab(s), Oral, MonFri for 30 day(s), 9 tab(s), Refill(s) 11, [facility] #[id number], 163, cm, 09/21/23 9:00:00 EDT, Height/Length Dosing, [...] disease (2 sources) Atherosclerotic heart disease of campo coronary artery without angina pectoris; Translations: [Coronary [...] Long-term current use of anticoagulant; Translations: [intermodal customer service (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 of anticoagulants] Onset: 05-11-2023 Episodic [...] 09-02-2022 09-02-2022 Other aftercare (1 source) intermodal customer service (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 of aspirin; Translations: [RAILROAD EMERGENCY SERVICES MANAGER CURRENT USE OF ASPIRIN] Onset: 03-13-2022 Episodic Other aftercare (1 source) 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 4. Anticoagulated (Z79.01: intermodal customer service (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 of anticoagulants) Eliquis. Hx of stroke and [place] 2 days following stroke. Went into cardiac arrest. Cardiac stent placed 08/2022. Elevated risk for periop complications. Follow-up With When Contact Information JOSE MARIA MCDANIELS, Flo Alvarez, [place] [phone]- Additional Instructions: 4 mos w/ PVR Patient [...] Mother and (more content not included)... Normal [facility] Comment on above: Result Comment: Elec tronically Signed By: Flo JOHNSON MD\.br\Date and Time Signed: 09/21/23 09:28 EDT\.br\Electronically Co-Signed By: Marielle Darby\.br\Date and Time Co-Signed: 09/21/23 09:24 EDT Lab - Other Lab Resultson Lab - Other Lab Results [id number]#1 .00OTGTIFF Normal [facility] METABOLIC PANE Sunil 05-30-2023 Albumin [Mass/Vol] 4.1 g/dL Normal 3.2-5.3 [facility] Comment on above: Performed By: #### Pratik LOPEZ 61307-0 #### [facility] ([id number]) [address], [address] [place] [address] ALP [Catalytic activity/Vol] 73 U/L Normal 39-130 [facility] Comment on above: Performed By: #### Pratik LOPEZ 97154-6 #### [facility] ([id number]) [address], [address] [place] [address] ALT [Catalytic activity/Vol] 17 U/L Normal 0-31 [facility] Comment on above: Performed By: #### Pratik LOPEZ, 17285-0 #### [facility] ([id number]) [address], [address] [place] [address] Anion gap [Moles/Vol] 7 mmol/L Normal 5-15 [facility] Comment on above: Performed By: #### Pratik LOPEZ 64702-0 #### [facility] ([id number]) [address], [address] [place] [address] AST [Catalytic activity/Vol] 18 U/L Normal 0-41 [facility] Comment on above: Performed By: #### Pratik LOPEZ, 30489-5 #### [facility] ([id number]) [address], [address] [place] [address] Bilirubin [Mass/Vol] 0.4 mg/dL Normal 0.3-1.2 [facility] Comment on above: Performed By: #### Pratik LOPEZ, 96440-0 #### [facility] ([id number]) [address], [address] [place] [address] Calcium [Mass/Vol] 9.8 mg/dL Normal 8.5-10.5 [facility] Comment on above: Performed By: #### Pratik LOPEZ, 42596-4 #### [facility] ([id number]) [address], [address] [place] [address] Chloride [Moles/Vol] 100 mmol/L Normal 98-109 [facility] Comment on above: Performed By: #### Pratik LOPEZ, 69759-9 #### [facility] ([id number]) [address], [address] [place] [address] CO2 [Moles/Vol] 30 mmol/L Normal 22-32 [facility] Comment on above: Performed By: #### Pratik LOPEZ, 73987-4 #### [facility] ([id number]) [address], [address] [place] [address] Creatinine [Mass/Vol] 1.09 mg/dL High 0.40-1.00 [facility] Comment on above: Result Comment: METH OD TRACEABLE TO IDMS STANDARD Performed By: #### Pratik LOPEZ, 07383-7 #### [facility] ([id number]) [address], [address] [place] [address] GFR/1.73 sq M.predicted among non-blacks MDRD (S/P/Bld) [Vol rate/Area] 51 mL/min/{1.73_m2} Low >59 [facility] Comment on above: Result Comment: Reported eGFR is based on the CKD-EPI 2020 equation that does not use a race coefficient. Performed By: #### Pratik LOPEZ, 18679-7 #### [facility] ([id number]) [address], [address] [place] [address] Glucose [Mass/Vol] 101 mg/dL High 65-99 [facility] Comment on above: Performed By: #### Pratik LOPEZ, 42840-9 #### [facility] ([id number]) [address], [address] [place] [address] Potassium [Moles/Vol] 4.1 mmol/L Normal 3.5-5.0 [facility] Comment on above: Performed By: #### Pratki LOPEZ, 52456-5 #### [facility] ([id number]) [address], [address] [place] [address] Protein [Mass/Vol] 7.9 g/dL Normal 6.0-8.0 [facility] Comment on above: Performed By: #### Pratik LOPEZ, 64817-9 #### [facility] ([id number]) [address], [address] [place] [address] Sodium [Moles/Vol] 137 mmol/L Normal 134-146 [facility] Comment on above: Performed By: #### Pratik LOPEZ, 96070-4 #### [facility] ([id number]) [address], [address] [place] [address] Urea nitrogen [Mass/Vol] 16 mg/dL Normal 5-27 [facility] Comment on above: Performed By: #### Pratik LOPEZ, 64170-9 #### [facility] ([id number]) [address], [address] [place] [address] HGB A1C (GLYCO-HGB)on 2023 Glucose [Mass/Vol] 120 mg/dL Normal [facility] Comment on above: Performed By: #### Pratik LOPEZ, 55347-6 #### [facility] ([id number]) [address], [facility] [address] [place] [address] HbA1c (Bld) [Mass fraction] 5.8 % High 4.4-5.6 [facility] Comment on above: Result Comment: NOTE ADA Guidelines Result HgbA1c Normal : less than 5.7 % Prediabetes : 5.7 % to 6.4 % Diabetes : > 6.4 % Use with caution in patients with abnormal hemoglobin variants as the half-life of red blood cells and in vivo glycation rates are affected. Performed By: #### Pratik LOPEZ, 24293-9 #### [facility] ([id number]) [address], [address] [place] [address] Lipid 1996 panelon Cholesterol [Mass/Vol] 203 mg/dL High 150-200 [facility] Comment on above: Performed By: #### Pratik LOPEZ, 95884-3 #### [facility] ([id number]) [address], [address] [place] [address] Cholesterol in HDL [Mass/Vol] 45 mg/dL Normal >39 [facility] Comment on above: Result Comment: HDL <40 mg/dL - High Risk HDL > or = 40mg/dL- Desirable HDL >60 mg/dL - Negative Risk Performed By: #### Pratik LOPEZ, 50006-8 #### [facility] ([id number]) [address], [address] [place] [address] Cholesterol in LDL [Mass/Vol] 97 mg/dL Normal <130 [facility] Comment on above: Result Comment: LDL <100 mg/dL - Desirable LDL >160 mg/dL - High Risk Performed By: #### C JESSICA, 10429-6 #### [facility] ([id number]) [address], [address] [place] [address] Cholesterol in VLDL [Mass/Vol] 61 mg/dL High 0-30 [facility] Comment on above: Performed By: #### Pratik LOPEZ, 87086-8 #### [facility] ([id number]) [address] [place] [address] CHOLESTEROL:HDL 4.5 Normal 1.0-5.0 [facility] Comment on above: Performed By: #### Pratik LOPEZ, 61535-9 #### [facility] ([id number]) [address], [facility] [address] [place] [address] Triglyceride [Mass/Vol] 306 mg/dL High 27-150 [facility] Comment on above: Performed By: #### Pratik LOPEZ, 20530-2 #### [facility] ([id number]) [address] [place] [address] Lab - Other Lab Resultson Lab - Other Lab Results [id number]#1.[address] [facility] Urineon 05-13-2023 Bacteria identified Cx Nom [...] Locations R1: This test was performed at: [facility], [address] [place], [address]- , [place], Normal [facility] Comment on above: Performed By: #### 2 [id number] #### [facility] [address] [place] [address] Ambulatory Visit Summaryon 0 05-11-2023 Ambulatory Visit [...] MARIA MCDANIELS, Flo Alvarez, URL When: Where: [facility] [place] [address]- Medications What How Much When Instructions New levofloxacin (Levaquin 250 mg Tab) 1 Tablets By Mouth Every day [facility]up [id number] Unchanged apixaban (Eliquis 5 mg oral tablet) [...] questions or concerns Pharmacy Information [id number]: [address] [place], [place] [id number] [phone] What How Much When Comments Stop Taking [...] inj (more content not included)... Normal [facility] Patient Educationon 05-11-19 Patient Education Urinary Tract [...] this condition includes: ? Antibiotic medicine. ? Agop-gcu-kmanhno medicines to treat discomfort. ? Drinking enough [...] these instructions at home: Medicines ? Take kuwp-tip-ifzbubh and prescription medicines only as told by [...] Rivera (more content not included)... Normal [facility] Urology Office/Clinic Noteon 05-11-2023 Urology Office/Clinic Note Chief Complaint 1yr HPI Staff 82 yo female here for 1 yr f/u. 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 S/p Cysto/UD 12/18/11. Uses Estradiol cream 3x/wk. MWF. (does need refill) Denies UTI since last encounter. Did have stroke/heart attack & cardiac stent placed in August. Was in senior care, did have dark urine, tested urine, NEG. [...] Directed pt to d/c cream. Was in senior care after having stroke and heart attack. Reports [...] well. PVR 23 cc. 4. Anticoagulated (Z79.01: prison (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 of anticoagulants) Eliquis. Reports she had a stroke and then had a heart attack two days later. Pt states she went into cardiac arrest. Cardiac stent placed in August. Feels she is still improving. Follow-up With When Contact Information JOSE MARIA MCDANIELS, Flo Alvarez, URL [address] [place] [address]- Additional Instructions: 4 months Patient Education Urinary [...] Ambulatory Po (more content not included)... Normal [facility] Comment on above: Result Comment: Elec tronically Signed By: Flo JOHNSON MD\.br\Date and Time Signed: 05/11/23 08:56 EST\.br\Electronically Co-Signed By: Marielle Darby.br\Date and Time Co-Signed: 05/11/23 08:53 EST CK [Catalytic activity/Vol]o n 04-16-2023 CPK 39 U/L Normal 24-170 [facility] Comment on above: Performed By: #### 2 157-6, 1988-5, 61544-9 #### [facility] ([id number]) [address], [address] [place] [address] CRP [Mass/Vol]on 04-16-2023 C REACTIVE PROTEIN 0.1 mg/dL Normal 0.000-0.744 [facility] Comment on above: Performed By: #### 2 157-6, 1987-07, 27681-4 #### [facility] ([id number]) [address] [place] [address] ESR Photometric method (Bld) [Velocity]on 04-16-2023 ESR, ERYTHROCYTE SEDIMENTATION RATE 11 mm/h Normal 0-30 [facility] Comment on above: Performed By: #### 2 157-6, 1987-07, 41930-6 #### [facility] ([id number]) [address] [place] [address] Provider Orderson 04-11-2023 Provider Orders [id number]#1.0 0OTGTIFF Normal [facility] Outside Recordson 04-06-2023 Outside Records [id number]#1 .00OTGTIFF Normal [facility] Provider Orderson 03-30-2023 Provider Orders [id number]#1. 00OTGTIFF Normal [facility] Outside Recordson 03-07-2023 Outside Records [id number]#1. 00OTGTIFF Normal [facility] Outside Recordson 02-27-2023 Outside Records [id number]#1. 00OTGTIFF Normal [facility] Outside Recordson 02-13-2023 Outside Records [id number]#1.00 OTGTIFF Normal [facility] Outside Recordson 01-15-2023 Outside Records [id number]#1 .00OTGTIFF Normal [facility] Outside Recordson 01-03-2023 Outside Records [id number]#1.0 0OTGTIFF [facility] Outside Records [id number]#1.0 0OTGTIFF [facility] Outside Recordson 12-28-2022 Outside Records [id number]#1.0 0OTGTIFF [facility] Outside Recordson 12-26-2022 Outside Records [id number]#1.0 0OTGTIFF [facility] Outside Recordson 12-25-2022 Outside Records [id number]#1 .00OTGTIFF [facility] Telemedicineon 10-02-2022 Telemedicine [id number] Jennifer Mckenzie 1940 F Date Provider Department Center 10/02/2022 FOX MCKEON [facility] No family history on file Level of Service:46047 MA PHYS/QHP TELEPHONE EVALUATION 11-20 MIN Reason for Visit and Comments: Follow-up [708813] - Unable to use video due to age and currently in extend care facility. Normal [facility] 36on 09-20-2022 36 Okay, Note on chart already she needs to schedule a telemed appointment with Dr. Cruz for follow up on biopsy results from [facility]. Normal [facility] Telephoneon 09-20-2022 Telephone [id number] Jennifer Mckenzie 1940 F Date Provider Department Center 09/20/2022 SHAHEED GUZMAN [facility] No family history on file Normal [facility] LIPID PROFILEon 07-06-2022 CHOL-HDL RATIO NORM SEE BELOW Normal [facility] Comment on above: Result Comment: 3.3 - 4.4 LOW RISK 4.4 - 7.1 AVERAGE RISK 7.1 - 11.0 MODERATE RISK >11.0 HIGH RISK Performed By: #### L IPID, LIVER #### [facility] [address] [place] [id number] Jill Euceda Cholesterol [Mass/Vol] 229 mg/dL Critically high <=200 [facility] Comment on above: Performed By: #### L IPID, LIVER #### [facility] [id number] Jill Euceda Cholesterol in HDL [Mass/Vol] 52 mg/dL Normal 40-60 [facility] Comment on above: Performed By: #### L IPID, LIVER #### [facility] [address] [place] [address] [address] Jill Euceda Cholesterol in LDL [Mass/Vol] 143.2 mg/dL Normal [facility] Comment on above: Performed By: #### L IPID, LIVER #### [facility] [address] [place] [address] [address] Jill Euceda Cholesterol.total/C holesterol in HDL [Mass ratio] 4.4 {ratio} Normal [facility] Comment on above: Performed By: #### L IPID, LIVER #### [facility] [address] [place] [address] [address] Jill Euceda HDL NORMAL > or = 60 mg/dl - LO W CARDIOVASCULAR RISK <40 mg/dl - HIGH CARDIOVASCULAR RISK Normal [facility] Comment on above: Performed By: #### L IPID, LIVER #### [facility] [id number] Jill Euceda LDL CALC NORMAL SEE BELOW Normal [facility] Comment on above: Result Comment: <100 mg/dl OPTIMAL 100 - 129 mg/dl NEAR OR ABOVE OPTIMAL 130 - 159 mg/dl BORDERLINE HIGH 160 - 189 mg/dl HIGH >190 mg/dl VERY HIGH Performed By: #### L IPID, LIVER #### [facility] [address] [place] [address] [address] Jill Euceda Triglyceride [Mass/Vol] 169 mg/dL Critically high <=150 [facility] Comment on above: Performed By: #### L IPID, LIVER #### [facility] [id number] Jill Euceda VLDL CALC 33.8 mg/dL Normal [facility] Comment on above: Performed By: #### L IPID, LIVER #### [facility] [address] [place] [address] Dr. Jill Euceda LIVER PROFILEon 07-06-2022 Albumin [Mass/Vol] 4.0 g/dL Normal 3.4-5.0 [facility] Comment on above: Performed By: #### L IPID, LIVER #### [facility] [address] [place] [address] Dr. Jill Euceda Albumin/Globulin [Mass ratio] 0.9 {ratio} Normal [facility] Comment on above: Performed By: #### L IPID, LIVER #### [facility] [address] [place] [address] Dr. Jill Euceda ALP [Catalytic activity/Vol] 96 U/L Normal 46-116 [facility] Comment on above: Performed By: #### L IPID, LIVER #### [facility] [address] [place] [address] Dr. Jill Euceda ALT [Catalytic activity/Vol] 34 U/L Normal 14-59 [facility] Comment on above: Performed By: #### L IPID, LIVER #### [facility] [address] [place] [address] Dr. Jill Euceda AST [Catalytic activity/Vol] 24 U/L Normal 15-37 [facility] Comment on above: Performed By: #### L IPID, LIVER #### [facility] [address] [place] [address] Dr. Jill Euceda BILI, CONJUGATED 0.1 mg/dL Normal 0.0-0.2 [facility] Comment on above: Performed By: #### L IPID, LIVER #### [facility] [address] [place] [address] Dr. Jill Euceda Bilirubin [Mass/Vol] 0.6 mg/dL Normal 0.2-1.0 [facility] Comment on above: Performed By: #### L IPID, LIVER #### [facility] [address] [place] [address] Dr. Jill Euceda Globulin (S) [Mass/Vol] 4.7 g/dL Normal [facility] Comment on above: Performed By: #### L IPID, LIVER #### [facility] [address] [place], [place] [address] Dr. Jill Euceda Protein [Mass/Vol] 8.7 g/dL Critically high 6.4-8.2 T [facility] Comment on above: Performed By: #### L IPID, LIVER #### [facility] [address] [place], [place] [address] Dr. Jill Euceda SCREENING MAMMOGRAM W/YULY, BILATERAL*on [...] VERY IMPORTANT TO YOUR HEALTH. THE CURRENT [employer] GUIDELINES RECOMMENDS ANNUAL MAMMOGRAPHY BEGINNING AT AGE 40 THIS FACILITY USES A REMINDER SYSTEM TO ENSURE ALL PATIENTS RECEIVE REMINDER NOTIFICATIONS AT THE APPROPRIATE TIME BASED ON THE RECOMMENDATIONS OF THIS EXAM. Report reported and signed by Johan Meyer on 04/18/2022 1550 Normal [facility] Senior Lead Developer XR Bone Density (DEXA)on XR Bone Density [...] by Rojas Sinha on 04/19/2022 0905 Normal [facility] Senior Lead Developer Sunil 04-12-2022 L -- ---- Specimen: [id number] Received: 04/13/22 Status: CHERRY Porter Num: [id number] Spec Type: Surgical Subm Dr: Seamus Rios DO Tissues: A Skin-Other than Cyst, tag, debridement or plastic repair (MID BACK) Procedures: S 100, HE/3, Chirag/Santa L4 ---- Age/ Patient Sex Location Account Attending Physician ---- Jennifer Mckenzie 81/F LIN [id number] Seamus Rios DO ---- SPEC NUM: [id number] RECD: 04/13/22 STATUS: CHERRY PORTER NUM: [id number] VICENTE: 04/12/22 [facility] [address]: Seamus Rios DO ENTERED: 04/13/[address] [facility] [address]: Agus Tabor SPEC TYPE: Surgical DEPT: MAG SAENZ ORDERED: S 100, HE/3, Gross/Micro L4 ORDERED: S 100, HE/3, Gross/Micro L4 Pathological Diagnosis Skin, mid back, shave excision: - INTRADERMAL NEVUS. COMMENT: S100 garrido the nevus cells within the dermis. This supports the above diagnosis. For routine supplier quality engineer purposes, the case has been prospectively reviewed [...] [id number] Received: 04/13/22 Status: CHERRY Milleresther Num: [id number] Spec Type: Surgical Subm Dr: Seamus Rios DO Tissues: A Skin-Other than Cyst, tag, debridement or plastic repair (MID BACK) Procedures: S 100, HE/3, Gross/Micro L4 ---- Patient: Jennifer Mckenzie [id number] (Continued) ---- Specimen: [id number] Received: 04/13/22 (Continued) Signed (signature on file) Sloane Fish MD 04/17/22 1523 ---- Specimen: [id number] Received: 04/13/22 Status: CHERRY Porter Num: [id number] Spec Type: Surgical Subm Dr: Seamus Rios DO Tissues: A Skin-Other than Cyst, tag, debridement or plastic repair (MID BACK) Procedures: S 100, HE/3, Gross/Santa L4 ---- Patient: Jennifer Mckenzie [id number] (Continued) ---- Specimen: [id number] Received: 04/13/22 (Continued) CPT Codes 56102; 98703 ---- ---- Specimen: [id number] Received: 04/13/22 Status: ALEKSANDRAAlicia German Num: [id number] Spec Type: Surgical Subm Dr: Seamus Rios DO Tissues: A Skin-Other than Cyst, tag, debridement or plastic repair (MID BACK) Procedures: S 100, HE/3, Gross/Micro L4 ---- Patient: Jennifer Mckenzie [id number] (Continued) ---- Signed (signature on file) Sloane Fish MD 04/17/22 1523 [facility] Vital Signs Date Time Vital Sign Value Performing Clinician Florence berry 09-21-2023 08:38-0400 Blood Pressure Location Flo JOHNSON [facility] 09-21-2023 08:38-0400 Body temperature 98.6 [degF] Flo JOHNSON [facility] 09-21-2023 08:38-0400 Diastolic blood pressure 63 mm[Hg] Flo JOHNSON [facility] 09-21-2023 08:38-0400 Heart rate 65 /min Floaleta JOHNSON [facility] 09-21-2023 08:38-0400 Respiratory rate 16 /min Flo JOHNSON [facility] 09-21-2023 08:38-0400 Systolic blood pressure 121 mm[Hg] Flo JOHNSON [facility] 05-11-2023 08:19-0500 Blood Pressure Location Flo JOHNSON [facility] 05-11-2023 08:19-0500 Diastolic blood pressure 79 mm[Hg] Flo JOHNSON [facility] 05-11-2023 08:19-0500 Heart rate 67 /min Flo JOHNSON [facility] 05-11-2023 08:19-0500 Respiratory rate 16 /min Flo JOHNSON [facility] 05-11-2023 08:19-0500 Systolic blood pressure 134 mm[Hg] Flo JOHNSON [facility] 05-01-2022 12:55-0500 Blood Pressure Location Flo JOHNSON [facility] 05-01-2022 12:55-0500 Diastolic blood pressure 72 mm[Hg] Flo JOHNSON [facility] 05-01-2022 12:55-0500 Heart rate 65 /min Flo JOHNSON [facility] 05-01-2022 12:55-0500 Respiratory rate 16 /min Flo JOHNSON [facility] 05-01-2022 12:55-0500 Systolic blood pressure 126 mm[Hg] Flo JOHNSON [facility] Encounters Encounter Date Encounter Type Care Provider Facility Start: 02-04-2024 ambulatory Flo JOHNSON Facili [facility] Start: 12-18-2023 End: 12-18-2023 ambulatory Seamus Rios Facility: [facility] Start: 2023 End: 2023 ambulatory Seamus Rios Facility: [facility] Start: 09-21-2023 End: 09-21-2023 ambulatory Flo JOHNSON Facility:[facility] Start: 09-21-2023 End: 09-21-2023 Patient encounter procedure Flo JOHNSON [facility] Start: 09-13-2023 End: 09-13-2023 ambulatory Seamus Rios Facility: [facility] Start: 09-07-2023 End: 09-07-2023 ambulatory MIKE DELGADO [facility] Start: 09-04-2023 End: 09-04-2023 ambulatory SEAMUS JENNIFER Not Available Start: 06-14-2023 Telephone encounter Nuria Granados [facility] Start: 06-13-2023 Telephone encounter Christina Zavala CMA [facility] Start: 06-07-2023 End: 06-07-2023 ambulatory Seamus Rios Facility:[facility] Start: 05-30-2023 End: 05-30-2023 ambulatory SEAMUS RIOS [facility] Start: 05-11-2023 End: 05-11-2023 Lab Drop off Flo JOHNSON [facility] Start: 05-11-2023 End: 05-11-2023 ambulatory Flo JOHNSON Facility:[facility] Start: 05-11-2023 End: 05-11-2023 Patient encounter procedure Flo JOHNSON [facility] Start: 04-16-2023 End: 04-16-2023 ambulatory KATARZYNA BASHIR [facility] Start: 03-07-2023 End: 03-07-2023 ambulatory Seamus Rios Facility:[facility] Start: 02-08-2023 End: 02-08-2023 ambulatory Seamus Rios Facility:[facility] Start: 01-03-2023 End: 01-03-2023 ambulatory Seamus Rios Facility:[facility] Start: 01-02-2023 End: 01-02-2023 ambulatory Seamus Rios Facility:[facility] Start: 10-02-2022 End: 10-02-2022 ambulatory FOX CRUZ [facility] Start: 07-06-2022 End: 07-07-[address] OLIVEIRA LISTED REQUEST Facility: Start: 05-01-2022 End: 05-01-2022 Patient encounter procedure Flo JOHNSON [facility] Start: 04-12-2022 End: 04-12-2022 ambulatory Seamus Rios Facility:[facility] Start: 04-12-2022 End: 04-12-2022 ambulatory DO Seamus Rios Work Phone: [facility] Work Phone: Start: 04-12-2022 End: 04-12-2022 Departed Referred DO Seamus Rios Work Phone: [facility] Start: 03-10-2022 [...] 10-19-2023 Adult BMI Screening Adult BMI Screening [facility] Start: 10-19-2023 Tobacco Screening Tobacco Screening [facility] Start: 09-03-2023 Depression Screening Depression Screening [facility] Start: 06-14-2023 End: 06-14-2023 Patient encounter procedure 06/14/2023 12:00 PM EDT Office Visit [facility] [address] [place] [address] Jarred Goldstein MD [address] [place] [address] [facility] Start: 11-24-2022 Influenza vaccination Influenza Vaccine [facility] Start: 08-24-2022 DTaP,Tdap and Td Vaccines (2 - Td or Tdap) DTaP,Tdap and Td Vaccines (2 - Td or Tdap) [facility] Start: 10-05-2007 Fall Risk Screening Fall Risk Screening [facility] Start: 1992 Administration of varicella zoster vaccine Zoster (Shingles) Vaccine (1 of 2) [facility] Start: 1940 Medicare Annual Wellness Visit Medicare Annual Wellness Visit [facility] Immunizations Immunization Date Immunization Notes Care Provider Fa cility 08-24-2012 tetanus and diphther ia toxoids, adsorbed, preservative free, for adult use (2 Lf of tetanus toxoid and 2 Lf of diphtheria toxoid) Flo JOHNSON [facility] 08-24-2012 tetanus and diphther ia toxoids, adsorbed, preservative free, for adult use (5 Lf of tetanus toxoid and 2 Lf of diphtheria toxoid) Christina Zavala [facility] NEGATED: Highlighted row has not occurred!01-30-2020 influenza virus vaccine, unspecified formulation Flo JOHNSON [facility] Payers Date Payer Category Payer Self-pay [id number] 2022 Medicare [employer] MEDICARE UHC MEDICARE ADVANTAGE PPO [id number] 2022-Present [phone] [address] [address] [place] [address] [id number] 1959 Medicare [id number] 1959 Medicare [id number] 1942 Unknown [id number] 2.16.840.1.452022.3.579. 2.593 1942 Unknown [id number] 2.16.840.1.182814.3.579. 2.593 1942 Unknown [id number] 2.16.840.1.559462.3.579. 2.1259 1942 Unknown [id number] 2.16.840.1.762370.3.579. 2.1286 1942 Unknown [id number] 2.16.840.1.716704.3.579. 2.1286 1942 Unknown [id number] 2.16.840.1.346199.3.579. 2.1286 1942 Unknown [id number] 2.16.840.1.049469.3.579. 2.727 1942 Unknown [id number] 2.16.840.1.201564.3.579. 2.727 1942 Unknown [id number] 2.16.840.1.085844.3.579. 2.72 1942 Unknown [id number] 2.16.840.1.096568.3.579. 2.727 1942 Unknown [id number] 2.16.840.1.063057.3.579. 2.71 1942 Unknown [id number] 2.16.840.1.353717.3.579. 2.71 1942 Unknown [id number] 2.16.840.1.988331.3.579. 2.71 1942 Unknown [id number] 2.16.840.1.302066.3.579. 2.71 1942 Unknown [id number] 2.16.840.1.600593.3.579. 2. 1942 Unknown [id number] 2.16.840.1.938447.3.579. 2.71 1942 Unknown [id number] 2.16.840.1.984644.3.579. 2. 1942 Unknown [id number] 2.16.840.1.072430.3.579. 2.718 Medicare Medicare [id number] Private Health Insurance Aetna [facility] PFFS [id number] Unknown [place] BC/BS [id number] Unknown [id number] 2.16.840.1.139872.3.579. 2.531 Social History Date Type Detail Facility Tobacco smoking stat [facility] Unknown if ever smoked [facility] Work Phone: Start: 1940 Sex Assigned At Female F [facility] Start: 01-31-2021 End: 09-21-2023 Tobacco smoking status Never smoked tobacco (finding) [facility] Start: 05-06-2020 End: 09-02-2022 Sex Assigned At Female [facility] Tobacco smoking status Never [facility] Start: 09-13-2022 Tobacco use and exposure Smokeless tobacco non-user [facility] Start: 10-18-2022 Alcohol intake Ex-drinker (finding) [facility] Start: 05-06-2020 End: 09-02-2022 History of Social function [facility] How often to you hav e a drink containing alcohol? Never [facility] Start: 1940 Sex Assigned At Not on file [facility] Medical Equipment Procedure Code Equipment Code Equipment Origin al Text Equipment Identifier Dates Lens Iol Ultrase rt 22.5d - [id number] - [id number] Start: 02-15-2021 Lens Iol Ultrase rt 22.5d - [id number] - [id number] Start: 03-01-2021 System Cor Stnt 2.25mm X 18mm 145cm [employer] Juan - [id number] [facility] Start: 09-11-2022 Goals Date Patient Goal Desired [...] 09-21-2023 Functional Status N/A [facility] 05-11-2023 Functional Status N/A [facility] 05-01-2022 Functional Status N/A [facility] Clinical Notes 03-10-2022 to 12-19-2023 Telephone Encounter - Nuria Granados - 06/14/2023 8:28 AM EDTTelephone Encounter - Nuria Granados - 06/14/2023 8:28 AM EDTTelephone Encounter - Christina Zavala CMA - 06/13/2023 11:14 AM EDT Note Date & Type Note Facility 12-19-2023 Note - From: Coral Fatih RN ([facility] ([facility] To: Seamus Rios DO; Sent: 12/19/2023 13:16:03 [...] 3 Substitutions Allowed Route To Pharmacy - [facility] Signed by Seamus Rios DO 12/19/2023 13:30:00 EDT [facility] 11-19-2023 Note - From: Coral Faith RN ([facility] ([facility] To: Seamus Rios DO; Sent: 11/19/2023 09:12:57 EDT Subject: Med Management Caller Name: JENNIFER MCKENZIE; Caller Number: H Caller is: ( X ) Patient ( ) Mother ( ) Father ( ) Pharmacy ( ) Other: Pharmacy to route Rx to: [facility] Patient's Provider: Reviewed Allergies: ( ) Yes ( ) No Pharmacy: [facility] Comments: 1. Name of Medication: PLAVIX 75MG [...] 3 Substitutions Allowed Route To Pharmacy - [facility] Signed by Seamus Rios DO 11/19/2023 09:13:00 EDT [facility] 11-14-2023 Note - From: Coral Faith RN ([facility] ([facility] To: Seamus Rios DO; Sent: 11/14/2023 10:16:44 EDT Subject: Med Management Caller Name: JENNIFER MCKENZIE; Caller Number: H Caller is: ( X ) Patient ( ) Mother ( ) Father ( ) Pharmacy ( ) Other: Pharmacy to route Rx to: [facility] Patient's Provider: Reviewed Allergies: ( ) Yes ( ) No Pharmacy: [facility] Comments: 1. Name of Medication: LEVOTHYROXINE 50mcg [...] 3 Substitutions Allowed Route To Pharmacy - [facility] Signed by Seamus Rios DO 11/14/2023 10:25:00 EDT Submitted: Order:levothyroxine (Synthroid 50 mcg (0.05 mg) oral tablet) 1 tab(s) Oral Daily Qty: 90 tab(s) Refills: 3 Substitutions Allowed Route To Pharmacy - [facility] Signed by Seamus Rios DO 11/14/2023 10:25:00 EDT [facility] 11-05-2023 Note - From: Coral Faith RN ([facility] ([facility] To: Seamus Rios DO; Sent: 11/05/2023 07:07:13 EDT Subject: FW: Medication Management Due Date/Time: 11/05/2023 06:36:00 EDT Caller Name: JENNIFER MCKENZIE; Caller Number: H From: [facility] #[id number] To: Seamus Rios DO Sent: November 04, [...] From: Seamus Rios DO [facility]: [facility] #[id number] Sent: 11/05/2023 07:16:54 EDT Subject: FW: Medication Management Submitted: Complete:clopidogrel (clopidogrel 75 mg oral tablet) Signed by Seamus Rios DO 11/05/2023 07:16:00 EDT Approved with modifications: clopidogrel (CLOPIDOGREL 75 MG TABLET) take 1 tablet by mouth once daily Qty: 90 tab(s) Days Supply: 90 Refills: 3 Substitutions Allowed Route To Pharmacy - [facility][id number] [facility] 09-21-2023 Hospital Discharg e instructions Patient Education [...] Treatment for this condition includes: Antibiotic medicine. Etjv-qbn-ghxygfe medicines to treat discomfort. Drinking enough water [...] Follow these instructions at home: Medicines Take idjb-fwe-strxasy and prescription medicines only as told by [...] provider. Document Revised: 10/22/2020 Document Reviewed: 10/22/2020 [employer] Patient Education 2022 [employer]. Follow Up Care 05/11/2023 09:00:33 With:JOSE MARIA MCDANIELS Flo Alvarez, ISSAC Address: [address] [place], [place] [id number]- When: Unknown [facility] 09-21-2023 Note Patient Education Obstetrics and [...] this condition includes: ? Antibiotic medicine. ? Uwns-nvt-wpwqyls medicines to treat discomfort. ? Drinking enough [...] these instructions at home: Medicines ? Take jtgi-sse-jwmvrtb and prescription medicines only as told by [...] Document Revised: 10/22 (more content not included)... [facility] 06-14-2023 Miscellaneous Notes T/c to pt to r/s her PPC appt as MAS is out, no answer and no v/m. documented in this encounter [facility] 06-14-2023 Telephone encounter Note T/c to pt to r/s her PPC appt as [facility] is out, no answer and no v/m. [facility] 06-13-2023 Miscellaneous Notes Called patient to remind them to bring their most current copy of their medication list with them to their appt. Patient verbalizes understanding. documented in this encounter [facility] 06-13-2023 Telephone encounter Note Called patient to remind them to bring their most current copy of their medication list with them to their appt. Patient verbalizes understanding. [facility] 05-25-2023 Note - From: Nola Kaufman ([facility] ([facility] To: Seamus Rios DO; Sent: 05/25/2023 11:21:31 EST Subject: Med Management Caller Name: JENNIFER MCKENZIE; Caller Number: H Caller is: ( x ) Patient ( ) Mother ( ) Father ( ) Pharmacy ( ) Other: Pharmacy to route Rx to: [facility] [place] Patient's Provider: Reviewed Allergies: ( ) Yes ( ) No Pharmacy: [facility] [place] Comments: 1. Name of Medication: clopidogrel (clopidogrel [...] Allowed Route To Pharmacy - [facility] #[id number] Signed by Seamus Rios DO 05/25/2023 11:41:00 [facility] 05-11-2023 Hospital Discharg e instructions Patient Education [...] Treatment for this condition includes: Antibiotic medicine. Flhs-nyu-ddnlvws medicines to treat discomfort. Drinking enough water [...] Follow these instructions at home: Medicines Take bcan-gpk-riqogub and prescription medicines only as told by [...] provider. Document Revised: 10/22/2020 Document Reviewed: 10/22/2020 [employer] Patient Education 2022 [employer]. 05/11/2023 08:45:44 Urinary Tract Infection, Adult Urinary [...] Treatment for this condition includes: Antibiotic medicine. Letq-icg-qqokwlr medicines to treat discomfort. Drinking enough water [...] Follow these instructions at home: Medicines Take wybn-olo-pebpyqc and prescription medicines only as told by [...] provider. Document Revised: 10/22/2020 Document Reviewed: 10/22/2020 [employer] Patient Education 2022 [employer]. Follow Up Care 05/01/2022 14:14:03 With:JOSE MARIA MCDANIELS, Flo Alvarez, URL Address: [address] [place] [address]- When: Unknown [facility] 03-02-2023 Note - From: Coral Faith RN ([facility] ([facility] To: Seamus Rios DO; Sent: 03/02/2023 10:26:14 [...] ARE OUT. [facility]. 1. Name of Medication: ELIQUIS 5MG BID [...] 3 Substitutions Allowed Route To Pharmacy - [facility] [id number] Signed by Seamus Rios DO 03/02/2023 10:44:00 [facility] 02-28-2023 Note - From: Coral Faith RN ([facility] ([facility] To: Seamus Rios DO; Sent: 02/28/2023 08:56:39 [facility] Subject: Med Management Caller Name: JENNIFER [...] Allowed Route To Pharmacy - [id number] Signed by Seamus Rios DO 02/28/2023 09:28:00 [facility] 02-19-2023 Note - From: Coral Faith RN ([facility] ([facility] To: Seamus Rios DO; Sent: 02/19/2023 09:18:54 [...] Allowed Route To Pharmacy - [facility] #[id number] Signed by Seamus Rios DO 02/19/2023 09:35:00 [facility] 02-14-2023 Note - From: Coral Faith RN ([facility] ([facility])) To: Seamus Rios DO; Sent: 02/14/2023 15:13:30 EST Subject: FW: Medication Management Due Date/Time: 02/15/2023 15:11:00 EST Caller Name: JENNIFER MCKENZIE; Caller Number: H From: [facility] #[id number] To: Seamus Rios DO Sent: February 14, 2023 2:11:37 PM [facility] Subject: Medication Management Due: February 15, 2023 12:10:59 AM MIX CHEMIST On Hold Pending Signature Drug: clopidogrel (clopidogrel 75 mg oral tablet), 1 tab(s) PO Daily Quantity: 90 tab(s) Days Supply: 90 Refills: 0 Substitutions Allowed Notes from Pharmacy: Dispensed Drug: clopidogrel (clopidogrel 75 mg oral tablet), take 1 tablet by mouth once daily Quantity: 90 tab(s) Days Supply: 90 Refills: 0 Substitutions Allowed Notes from Pharmacy: From: Seamus Rios DO To: [facility] #[id number] Sent: 02/14/2023 15:23:37 EST Subject: FW: Medication Management Approved with modifications: clopidogrel (CLOPIDOGREL 75 MG TABLET) take 1 tablet by mouth once daily Qty: 90 tab(s) Days Supply: 90 Refills: 3 Substitutions Allowed Route To Pharmacy - [facility] #[id number] [facility] 12-21-2022 Note - From: Coral Faith ([facility] ([facility])) To: Seamus Rios DO; Sent: 12/21/2022 10:36:38 [...] Allowed Route To Pharmacy - [facility] #[id number] Signed by Seamus Rios DO 12/21/2022 10:50:00 EDT Submitted: Order:metoprolol (metoprolol succinate 100 mg oral tablet, extended release) 1 tab(s) PO Daily Qty: 90 tab(s) Refills: 3 Substitutions Allowed Route To Pharmacy - [facility] #[id number] Signed by Seamus Rios DO 12/21/2022 10:50:00 EDT [facility] 10-02-2022 Note RHEUMATOLOGY CLINIC NOTE Rheumatology was [...] HLD who presented initially to [facility] on 09/01/[address] brain without acute intracranial process. CTA head neck without large vessel occlusion. Patient was transferred to [facility] 09/02 for concern for stroke. WBC 21.8. [...] cervical spine w and wo contrast Order: [id number] Narrative MR CERVICAL SPINE W WO CONT [...] No pathologic intramedullary enhancement Multilevel discogenic disease, agency service representative levels detailed below: C4-C5:Posterior disc osteophyte [...] as described, submitted for further studies to [facility] (gross examination only). Report Electronically Signed Out wak/09/14/2022Deondre Arzola MD Addendum ([facility]) Date Reported: 09/20/2022 Results of Muscle Pathology Consultation dated 09/19/2022 are received from Priyanka Sierra (more content not included)... [facility] 05-01-2022 Hospital Discharg e instructions Patient Education [...] fried and sweet foods. General instructions Take osiu-dhr-zlqdcam and prescription medicines only as told by [...] 01/06/2010 Document Revised: 07/03/2019 Document Reviewed: 03/28/2018 [employer] Patient Education 2020 [employer] Follow Up Care 01/31/2021 12:27:14 With:JOSE MARIA MCDANIELS, Flo Alvarez, URL Address: [facility] [address] , [place] [phone] When:05/01/2023 [facility] 03-10-2022 Note PROCEDURE: XR HIP LT [...] authenticated by: SEAMUS LARA Date: 2022-03-10 11:50 [facility] 03-10-2022 Note PROCEDURE: XR HIP LT 2 [...] authenticated by: SEAMUS LARA Date: 2022-03-10 11:50 [facility] Evaluation + Plan note Future Appointments Appointment Date:05/11/2023 08:00:00 AM Scheduled Provider:Flo JOHNSON MD Location:[facility] Appointment Type:URO Office Visit [facility] Evaluation + Plan note Future Appointments Appointment Date:09/21/2023 08:30:00 AM Scheduled Provider:Flo JOHNSON MD Location:[facility] Appointment Type:URO Office Visit Diagnostic Tests PendingUrine Culture 05/11/23 [facility] Evaluation + Plan note Future Appointments Appointment Date:09/21/2023 08:30:00 AM Scheduled Provider:Flo JOHNSON MD Location:[facility] Appointment Type:URO Office Visit [facility] Evaluation + Plan note Future Appointments Appointment Date:02/04/2024 10:15:00 AM Scheduled Provider:Flo JOHNSON MD Location:[facility] Appointment Type:URO Office Visit [facility] Evaluation note No assessment inform ation available [facility] Work Phone: Hospital course Narrative No data available for this section [facility] Hospital Discharge instructions No data available for this section [facility] Instructions Not on filedocumente d in this encounter [facility] No data available for this section [facility] Summary Purpose Family History No Family [...] Seamus Rios DO Primary Care Provider Active Bladder Changer Relationship Specialty Start Date End Date Seamus Rios DO [address] [place] [address] PCP - General Family Medicine 11/23/16 Goals (unrecognized section and content) Goals may be documented in a n alternate section No data available for this section No data available for this section No data available for this section No data available for this section INFORMATION SOURCE (unrecogn ized section and content) DATE CREATED AUTHOR 04/19/2022 [facility] DATE CREATED AUTHOR AUTHOR'S ORGANIZ ATION 04/19/2022 [facility] dical Specialist DATE CREATED AUTHOR AUTHOR'S ORGANIZ ATION 07/12/2022 [facility] DATE CREATED AUTHOR AUTHOR'S ORGANIZ ATION 10/23/2022 [facility] DATE CREATED AUTHOR AUTHOR'S ORGANIZ ATION 09/05/2023 [facility] DATE CREATED AUTHOR AUTHOR'S ORGANIZ ATION 09/08/2023 [facility] DATE CREATED AUTHOR AUTHOR'S ORGANIZ ATION 09/22/2023 [facility] DATE CREATED AUTHOR AUTHOR'S ORGANIZ ATION 12/20/2023 [facility] FOR RECORDS PERTAINING TO PATIENTS WHO ARE [...] BE BASED ON THE PRIMARY CLINICAL RECORDS. [facility]. provides no warranty or guarantee of the accuracy or completeness of information in this document.
[2024-01-10] MEDS: DIPHENHYDRAMINE HCL 25 MG CAPSULE PO (12:44)
[2024-01-10] MEDS: PREDNISONE 20 MG TABLET 40 MG PO (12:44)
--- NOTE | 2024-01-10 13:37 | ED.SKABFB1 ---
HPI - Skin/Abscess/Foreign Bdy General Chief complaint: Skin/Abscess/Foreign Body Stated complaint: BEE STING Time Seen by Provider: 01/10/24 12:17 Source: patient Mode of arrival: walk-in History of Present Illness HPI narrative: The patient was stung by a bee almost 2 days ago is coming to the ER with a right forearm redness and itching, he was already in the hospital getting a blood workup which she decided to pass by the ER to get checked The patient denies any fever chills or any other complaints and this happened 2 days ago Related Data Home Medications ?Medication ?Instructions ?Recorded ?Confirmed droxidopa 200 mg capsule 200 mg PO TID 08/29/22 10/27/23 ropinirole 0.25 mg tablet 0.25 mg PO .at bedtime 08/29/22 10/27/23 apixaban 5 mg tablet (Eliquis) 5 mg PO Q12H 10/02/23 10/27/23 clopidogrel 75 mg tablet 75 mg PO DAILY 10/02/23 10/27/23 ezetimibe 10 mg tablet 10 mg PO DAILY 10/02/23 10/27/23 levothyroxine 25 mcg tablet 25 mcg PO DAILY 10/02/23 10/27/23 metformin 500 mg tablet 500 mg PO DAILY 10/02/23 10/27/23 metoprolol succinate 100 mg 100 mg PO DAILY 10/02/23 10/27/23 tablet,extended release 24 hr cephalexin 250 mg capsule 250 mg PO .2 times a week 10/27/23 10/27/23 losartan 25 mg tablet 25 mg PO DAILY 10/27/23 10/27/23 Previous Rx's ?Medication ?Instructions ?Recorded sulfamethoxazole 800 1 tab PO BID #14 tabs 10/28/23 mg-trimethoprim 160 mg tablet (Bactrim DS) diphenhydramine HCl 25 mg capsule 25 mg PO TID PRN allergic reaction 01/10/24 (Benadryl) #10 caps doxycycline hyclate 100 mg tablet 100 mg PO BID 7 days #14 tabs 01/10/24 prednisone 20 mg tablet 40 mg (2 x 20 mg) PO DAILY 3 days 01/10/24 #6 tabs Allergies Allergy/AdvReac Type Severity Reaction Status Date / Time Penicillins Allergy Intermediate Verified 08/29/22 23:44 teramician Allergy Intermediate Uncoded 08/29/22 23:44 Review of Systems ROS Status of ROS 10 or more systems reviewed and unremarkable except as noted in history and below PFSH [facility] Medical History (Updated 01/10/24 @ 12:45 by Wen Robison MD) UTI (urinary tract infection) ?N39.0 - Urinary tract infection, site not specified (ICD-10) Dizziness ?R42 - Dizziness and giddiness (ICD-10) CKD stage 2 due to type 2 diabetes mellitus ?E11.22 - Type 2 diabetes mellitus with diabetic chronic kidney disease (ICD-10) ?N18.2 - Chronic kidney disease, stage 2 (mild) (ICD-10) Type 2 diabetes mellitus ?E11.9 - Type 2 diabetes mellitus without complications (ICD-10) HTN (hypertension) ?I10 - Essential (primary) hypertension (ICD-10) HLD (hyperlipidemia) ?E78.5 - Hyperlipidemia, unspecified (ICD-10) Afib ?I48.91 - Unspecified atrial fibrillation (ICD-10) Hypothyroid ?E03.9 - Hypothyroidism, unspecified (ICD-10) CAD (coronary artery disease) ?I25.10 - Atherosclerotic heart disease of [place] coronary artery without angina pectoris (ICD-10) CVA (cerebral vascular accident) ?I63.9 - Cerebral infarction, unspecified (ICD-10) History of heart attack ?I25.2 - Old myocardial infarction (ICD-10) Tremor ?R25.1 - Tremor, unspecified (ICD-10) Parkinson disease ?G20 - Parkinson's disease (ICD-10) Leukocytosis (leucocytosis) ?D72.829 - Elevated white blood cell count, unspecified (ICD-10) Pain in the abdomen ?R10.9 - Unspecified abdominal pain (ICD-10) Weakness ?R53.1 - Weakness (ICD-10) Dehydration ?E86.0 - Dehydration (ICD-10) Surgical History (Updated 10/27/23 @ 15:09 by Stephanie Romero RN) H/O heart artery stent ?Z95.5 - Presence of coronary angioplasty implant and graft (ICD-10) History of hysterectomy ?Z90.710 - Acquired absence of both cervix and uterus (ICD-10) Social History Within the past year, how often did you have a drink containing alcohol: never Score interpretation: A score less than 3 is consistent with normal alcohol consumption. 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 Known occupational exposures/hazards: No Highest level of school completed/degree received: high school graduate Are you now , , , , never or living with a partner: In a typical week, how many times do you talk on the telephone with family, friends, or neighbors: 3 or more times per week How often do you get together with friends or relatives: 3 or more times per week Little interest or pleasure in doing things: not at all Feeling down, depressed, or hopeless: not at all Feel stressed/tense/nervous/anxious/difficulty sleeping: not at all Life stressors: recent of family or friend Life stressor details: 3 years ago Due to disability, difficulty making decisions: No Do you think of yourself as: straight/heterosexual Gender Identity: female Exam Narrative Exam Narrative: Nurses notes and vital signs reviewed and patient is not hypoxic. Right upper extremity: On the distal third of the forearm the patient have a 7 x 2 cm oval in shape redness that is warm with no entrance wound for the insect bite. There is no fluctuation General: Well-appearing and in no apparent distress. Skin: Warm, dry, no pallor noted. No rash. Head: Normocephalic, atraumatic. Neck: Supple, non-tender. Eye: Pupils are equal, round and EOMI. No scleral icterus. Ears, Nose, Mouth, and Throat: TM are clear, no nasal mucosal hypertrophy. Oral mucosa is moist, no posterior oropharynx erythema, uvula is mid-line Cardiovascular: Regular Rate and Rhythm without murmur, gallop or rub. Respiratory: No accessory muscle use or respiratory distress. Lungs are clear to auscultation, no wheezing, rales or rhonchi Chest Wall: no tenderness Back: No midline thoracic or lumbar vertebral tenderness. No CVA tenderness Musculoskeletal: normal ROM, no calf or popliteal tenderness, no lower extremity edema/swelling GI: Abdomen is soft, non-distended. Normal bowel sounds. No masses appreciated. No tenderness to palpation. No rebound, guarding, or rigidity noted. Neurological: A&O x4. No cranial nerve dysfunction observed. No truncal ataxia. Moves all extremities. Sensation intact. Psychiatric: Cooperative and interactive. Normal mood and affect. Constitutional Vital Signs, click to edit/add: Last Vital Signs Temp 97.7 F 01/10/24 11:03 Pulse 62 01/10/24 11:03 Resp 16 01/10/24 11:03 BP 138/70 01/10/24 11:03 Pulse Ox 96 01/10/24 11:03 O2 Del Method Room Air 01/10/24 11:03 Course Vital Signs Vital signs: Vital Signs Temperature 97.7 F 01/10/24 11:03 Pulse Rate 62 01/10/24 11:03 Respiratory Rate 16 01/10/24 11:03 Blood Pressure 138/70 01/10/24 11:03 Pulse Oximetry 96 01/10/24 11:03 Oxygen Delivery Method Room Air 01/10/24 11:03 Temperature 97.7 F 01/10/24 11:03 Pulse Rate 62 01/10/24 11:03 Respiratory Rate 16 01/10/24 11:03 Blood Pressure 138/70 01/10/24 11:03 Pulse Oximetry 96 01/10/24 11:03 Oxygen Delivery Method Room Air 01/10/24 11:03 MDM - Skin/Abscess/Foreign Bdy MDM Narrative Medical decision making narrative: The patient was covered with Benadryl as well as prednisone in addition to cover with antibiotic due to her redness that is extending The patient lesion was marked and she was instructed about coming back in case of any symptoms The patient is to follow up with primary care physician in next 2-3 days or to return to the emergency department should any of the signs or symptoms worsen or new symptoms develop. The patient agrees with the following Diagnosis and Treatment plan and the patient will be discharged home. Discharge Plan Discharge Chief Complaint: Skin/Abscess/Foreign Body Clinical Impression: Bee sting, Cellulitis Patient Disposition: Home, Self-Care Time of Disposition Decision: 12:45 Condition: Good Mode of Transportation: Private Vehicle Prescriptions / Home Meds: New prednisone 20 mg tablet 40 mg PO DAILY 3 Days Qty: 6 0RF diphenhydramine HCl [Benadryl] 25 mg capsule 25 mg PO TID PRN (Reason: allergic reaction) Qty: 10 0RF doxycycline hyclate 100 mg tablet 100 mg PO BID 7 Days Qty: 14 0RF No Action droxidopa 200 mg capsule 200 mg PO TID ropinirole 0.25 mg tablet 0.25 mg PO .at bedtime Eliquis 5 mg tablet 5 mg PO Q12H clopidogrel 75 mg tablet 75 mg PO DAILY ezetimibe 10 mg tablet 10 mg PO DAILY levothyroxine 25 mcg tablet 25 mcg PO DAILY metformin 500 mg tablet 500 mg PO DAILY metoprolol succinate 100 mg tablet extended release 24 hr 100 mg PO DAILY cephalexin 250 mg capsule 250 mg PO .2 times a week Patient Comments: sun and losartan 25 mg tablet 25 mg PO DAILY sulfamethoxazole-trimethoprim [Bactrim DS] 800-160 mg tablet 1 tab PO BID Qty: 14 0RF Print Language: Bahamian Instructions: Cellulitis (ED), Insect Bite or Sting (ED) Referrals: Physician,Non-Staff, MD [Primary Care Provider] - 1 week Discharge Date/Time: 01/10/24 12:51
== END 2024-01-10 12:51 | disposition home or self-care (01) ==
PROVIDERS: Emergency Provider Emergency Medicine
DX: E03.9 Hypothyroidism, unspecified (principal); E78.5 Hyperlipidemia, unspecified; T63.441A Toxic effect of venom of bees, accidental (unintentional), initial encounter; L03.113 Cellulitis of right upper limb
CPT/HCPCS: 36415; 80053; 84439; 84443; 85025; 99283; J7512

== ENCOUNTER 2024-01-22 10:35 | Outpatient (OUT) | payer MEDICARE, SELFPAY ==
--- OUTSIDE RECORDS SUMMARY | 2024-01-22 10:37 | XMS_ITS | CCD ---
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 Role Phone DO Seamus Rios Primary Care Provider [phone] DO Seamus Rios Attending Provider [phone] Seamus Rios Attending Unavailable Seamus Rios Primary Care Unavailable Seamus Rios Admitting Unavailable SEAMUS RIOS Primary Care Physician [phone] OSMANI ., ELVER Admitting Unavailable OSMANI ., ELVER Attending Unavailable MARCO, DR SEAMUS Alvarez Consulting Unavailable REQUEST, NONE LISTED Primary Care Unavailmikhail KEEN ., [place] Consulting Unavailable REQUEST, NONE LISTED Primary Care Unavaila ble GABRIEL, DR OROZCO Admitting Unavailable GABRIEL, DR OROZCO Consulting Unavailable GABRIEL, DR OROZCO Attending Unavailable FOX CRUZ Attending Unavailable Seamus Rios DO Primary Care Provider [phone] SEAMUS RODRIGUEZ Attending Unavailable GABREIL, SEAMUS Rivera Referring Unavailable GABRIEL, SEAMUS Rivera Primary Care Unavailable MIKE DELGADO Attending Unavailable GABRIEL, SEAMUS Rivera Referring Unavailable GABRIEL, SEAMUS Rivera Primary Care Unavailable KATARZYNA BASHIR Referring Unavailable GABRIEL, SEAMUS Rivera Primary Care Unavailable Flo JOHNSON Attending Unavailable JOSE MARIA, Flo R Attending Unavailable JOSE MARIA, Flo R Attending Unavailable JOSE MARIA, Fol R Attending Unavailable Flo JOHNSON R Admitting Unavailable Gabriel, Seamus P Attending Unavailable Gabriel, Seamus P Primary Care Unavailable Gabriel, Seamus P Attending Unavailable Gabriel, Seamus P Primary Care Unavailable Gabriel, Seamus P Attending Unavailable Gabriel, Seamus P Primary Care Unavailable Gabriel, Seamus P Primary Care Unavailable Gabriel, Seamus P Attending Unavailable Gabriel, Seamus Rivera Attending Unavailable Gabriel, Seamus Rivera Primary Care Unavailable Angeline Dickerson Attending Unavailable Angeline Dickerson Admitting Unavailable Seamus Rios Primary Care Unavailable Allergies Allergy Classification Reported Allergen(s) Allergy Type Date of Onset Reaction(s) Facility (5 sources) Oxytetracycline; Translations: [oxytetracycline] Drug Allergy Moderate (severity modifier) (qualifier value) [facility] Comment on above: teramiacin (9 sources) Penicillins; Translations: [penicillins] Drug allergy 11-08-19 16 Moderate (severity modifier) (qualifier value) [facility] (3 sources) Oxytetracycline; Translations: [TERRAMYCIN] Drug Allergy 11-08-19 16 [facility] Repository (1 source) penciclovir; Translations: [PENCICLOVIR] Drug Allergy 10-03-19 23 [facility] Repository (3 sources) HMG-CoA reductase inhibitor; Translations: [NSRIMJD-FIM-YSV REDUCTASE INHIBITORS] Propensity to adverse reactions to drug 09-10-19 23 Other (See Comments) [facility] (2 sources) Oxytetracycline Drug Allergy 02-16-20 21 [facility] (1 source) Hmg-Coa Reductase Inhibitors (Statins); Translations: [statins] Propensity to adverse reactions to drug (disorder) [facility] Repository (1 source) Penicillin; Translations: [penicillin] Drug Allergy [facility] Repository Medications Current Medications Medication Drug Class(es) [...] Ordered docusate sodium 50 mg / sennosides, fdc 8.6 mg oral tablet (2 sources) take [...] size amount around the urethra, [id number], 163, cm, 05/01/22 13:29:00 EST, Height/Length Dosing, [...] Daily, # 7 tab(s), Refills(s) 0, Pharmacy: [facility] #[id number], 163, cm, 05/11/23 8:21:00 EST, Height/Length Dosing, [...] BID, 20 tab(s), Refill(s) 0, [facility][id number], 163, cm, 09/21/23 9:00:00 EDT, Height/Length Dosing, 59.3, kg, 09/21/23 9:00:00 EDT, Weight Dosing Start Date: 09/21/23 Status: Ordered Start: 09-21-2023 End: 09-15-2024 Bactrim D.S. 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] Onset: 05-11-2023 Episodic [...] Onset: 09-02-2022 09-02-2022 Other aftercare (1 source) [facility] (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 of aspirin; Translations: [SENIOR LIVING CURRENT USE OF ASPIRIN] Onset: 03-13-2022 Episodic Other aftercare (1 source) 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; Translations: [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] Onset: 03-13-2022 Episodic Other [...] Test Name Value Interpretation Reference Range Facility Lab - Other Lab Resultson Lab - Other Lab Results [id number]#1.0 [facility]KG[facility] 09-23 Electrocardiogram-E KG [id number]#1.00 [facility] 10-05-2023 Outside Records [id number]#1.00 [facility] Outside Records [id number]#1.00 [facility] U[facility] Office/Clinic Noteon 09-21-2023 Urology Office/Clinic [...] Last PVR 23 mL. 4. Anticoagulated (Z79.01: [facility] (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 of anticoagulants) Eliquis. Hx of stroke and [place] 2 days following stroke. Went into cardiac arrest. Cardiac stent placed 08/2022. Elevated risk for periop complications. Follow-up With When Contact Information JOSE MARIA MCDANIELS, Flo Alvarez, [place] [address]- Additional Instructions: 4 mos w/ PVR Patient [...] Mother and (more content not included)... Normal [facility] Comment on above: Result Comment: Elec tronically Signed By: Flo JOHNSON MD\\.br\\Date and Time Signed: 09/21/23 09:28 EDT\\.br\\Electronically Co-Signed By: Marielle Darby\\.br\\Date and Time Co-Signed: 09/21/23 09:24 EDT Lab - Other Lab [facility] Lab - Other Lab Results [id number]#1 .00OTGTIFF Normal [facility] Sunil 05-30-2023 Albumin [Mass/Vol] 4.1 g/dL Normal 3.2-5.3 [facility] Comment on above: Performed By: #### Pratik LOPEZ 92760-6 #### [facility] ([id number]) [address], [address] [place] [address] ALP [Catalytic activity/Vol] 73 U/L Normal 39-130 [facility] Comment on above: Performed By: #### Pratik LOPEZ 65243-3 #### [facility] ([id number]) [address], [address] [place] [address] ALT [Catalytic activity/Vol] 17 U/L Normal 0-31 [facility] Comment on above: Performed By: #### Pratik LOPEZ 57551-0 #### [facility] ([id number]) [address], [address] [place] [address] Anion gap [Moles/Vol] 7 mmol/L Normal 5-15 [facility] Comment on above: Performed By: #### Pratik LOPEZ 16243-8 #### [facility] ([id number]) [address] [place] [address] AST [Catalytic activity/Vol] 18 U/L Normal 0-41 [facility] Comment on above: Performed By: #### C JESSICA, 28214-8 #### [facility] ([id number]) [address], [address] [place] [address] Bilirubin [Mass/Vol] 0.4 mg/dL Normal 0.3-1.2 [facility] Comment on above: Performed By: #### C JESSICA, 34367-1 #### [facility] ([id number]) [address], [address] [place] [address] Calcium [Mass/Vol] 9.8 mg/dL Normal 8.5-10.5 [facility] Comment on above: Performed By: #### Pratik LOPEZ, 01172-0 #### [facility] ([id number]) [address], [address] [place] [address] Chloride [Moles/Vol] 100 mmol/L Normal 98-109 [facility] Comment on above: Performed By: #### Pratik LOPEZ, 85911-3 #### [facility] ([id number]) [address], [address] [place] [address] CO2 [Moles/Vol] 30 mmol/L Normal 22-32 [facility] Comment on above: Performed By: #### Pratik LOPEZ, 43289-2 #### [facility] ([id number]) [address], [address] [place] [address] Creatinine [Mass/Vol] 1.09 mg/dL High 0.40-1.00 [facility] Comment on above: Result Comment: METH OD TRACEABLE TO IDMS STANDARD Performed By: #### C JESSICA, 06929-1 #### [facility] ([id number]) [address], [address] [place] [address] GFR/1.73 sq M.predicted among non-blacks MDRD (S/P/Bld) [Vol rate/Area] 51 mL/min/{1.73_m2} Low >59 [facility] Comment on above: Result Comment: Reported eGFR is based on the CKD-EPI 2020 equation that does not use a race coefficient. Performed By: #### Pratik LOPEZ, 12876-0 #### [facility] ([id number]) [address] [address] [place] [address] Glucose [Mass/Vol] 101 mg/dL High 65-99 [facility] Comment on above: Performed By: #### Pratik LOPEZ, 40474-3 #### [facility] ([id number]) [address] [address] Potassium [Moles/Vol] 4.1 mmol/L Normal 3.5-5.0 [facility] Comment on above: Performed By: #### Pratik LOPEZ, 17564-1 #### [facility] ([id number]) [address] [address] [place] [address] Protein [Mass/Vol] 7.9 g/dL Normal 6.0-8.0 [facility] Comment on above: Performed By: #### Pratik LOPEZ, 18202-1 #### [facility] ([id number]) [address] [address] [place] [address] Sodium [Moles/Vol] 137 mmol/L Normal 134-146 [facility] Comment on above: Performed By: #### Pratik LOPEZ, 94975-6 #### [facility] ([id number]) [address] [address] [place] [address] Urea nitrogen [Mass/Vol] 16 mg/dL Normal 5-27 [facility] Comment on above: Performed By: #### Pratik LOPEZ, 67874-3 #### [facility] ([id number]) [address] [address] [place] [address] HGB A1C (GLYCO-HGB)on 2023 Glucose [Mass/Vol] 120 mg/dL Normal [facility] Comment on above: Performed By: #### Pratik LOPEZ, 45403-0 #### [facility] ([id number]) [address] [facility] [address] [place] [address] HbA1c (Bld) [Mass fraction] 5.8 % High 4.4-5.6 [facility] Comment on above: Result Comment: NOTE ADA Guidelines Result HgbA1c Normal : less than 5.7 % Prediabetes : 5.7 % to 6.4 % Diabetes : > 6.4 % Use with caution in patients with abnormal hemoglobin variants as the half-life of red blood cells and in vivo glycation rates are affected. Performed By: #### Pratik LOPEZ, 75604-8 #### [facility] ([id number]) [address] [address] [place] [address] Lipid 1996 panelon Cholesterol [Mass/Vol] 203 mg/dL High 150-200 [facility] Comment on above: Performed By: #### Pratik LOPEZ, 30073-3 #### [facility] ([id number]) [address] [address] [place] [address] Cholesterol in HDL [Mass/Vol] 45 mg/dL Normal >39 [facility] Comment on above: Result Comment: HDL <40 mg/dL - High Risk HDL > or = 40mg/dL- Desirable HDL >60 mg/dL - Negative Risk Performed By: #### Pratik LOPEZ, 16048-2 #### [facility] ([id number]) [address] [address] [place] [address] Cholesterol in LDL [Mass/Vol] 97 mg/dL Normal <130 [facility] Comment on above: Result Comment: LDL <100 mg/dL - Desirable LDL >160 mg/dL - High Risk Performed By: #### Pratik LOPEZ, 43507-5 #### [facility] ([id number]) [address], [facility] [address] [place] [address] Cholesterol in VLDL [Mass/Vol] 61 mg/dL High 0-30 [facility] Comment on above: Performed By: #### Pratik LOPEZ, 89503-4 #### [facility] ([id number]) [address] [address] [place] [address] CHOLESTEROL:HDL 4.5 Normal 1.0-5.0 [facility] Comment on above: Performed By: #### Pratik LOPEZ, 94897-2 #### [facility] ([id number]) [address], [address] [place] [address] Triglyceride [Mass/Vol] 306 mg/dL High 27-150 [facility] Comment on above: Performed By: #### Pratik LOPEZ, 87657-8 #### [facility] ([id number]) [address], [facility] [address] [place] [address] Lab - Other Lab [facility] Lab - Other Lab Results [id number]#1.0 0OTGTIFF Normal [facility] C Urineon 05-13-2023 Bacteria identified Cx Nom (U) Microbiology PROCEDURE: Urine Culture [R1] SOURCE: U Random BODY SITE: COLLECTED DATE/TIME: 05/11/2023 08:44 EST RECEIVED DATE/TIME: 05/11/2023 17:45 EST START DATE/TIME: 05/11/2023 17:45 EST FREE TEXT SOURCE: Flo JOHNSON MD, MD, Flo Alvarez FINAL REPORTS Final Report [] Verified Date/Time: [...] Locations R1: This test was performed at: [facility], [address] [place] [address], [address]- , [place], Normal [facility] Comment on above: Performed By: #### 2 [id number] #### [facility] [address] [place] [address] Ambulatory Visit Summaryon 0 05-11-2023 Ambulatory Visit Summary JENNIFER MCKENZIE :1940 Visit Date:05/11/2023 Ambulatory Visit Instructions Your Diagnosis Chronic cystitis without hematuria Urge incontinence Postinfective urethral stricture in female Anticoagulated Your Care Team Attending Physician - Flo JOHNSON MD Primary Care Physician - SEAMUS RIOS DO [...] Schedule the Following Appointments Follow Up with Flo JOHNSON MD, ISSAC When: Where: [facility] [place] [address]- Medications What How Much When Instructions New levofloxacin (Levaquin 250 mg Tab) 1 Tablets By Mouth Every day Pickup at [id number] Unchanged apixaban (Eliquis 5 mg oral tablet) [...] questions or concerns Pharmacy Information [id number]: [address] [place], [place] [id number] [phone] What How Much When Comments Stop Taking [...] inj (more content not included)... Normal [facility] Patient Educationon 05-11-19 Patient Education Urinary [...] this condition includes: ? Antibiotic medicine. ? Zhxo-pth-kmyecau medicines to treat discomfort. ? Drinking enough [...] these instructions at home: Medicines ? Take cjty-ljv-uruanpw and prescription medicines only as told by [...] April Rivera (more content not included)... Normal [facility] Urology Office/Clinic Noteon 05-11-2023 Urology Office/Clinic Note Chief Complaint 1yr HPI Staff 82 yo female here for 1 yr f/u. 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 S/p Cysto/UD 12/18/11. Uses Estradiol cream 3x/wk. MWF. (does need refill) Denies UTI since last encounter. Did have stroke/heart attack & cardiac stent placed in August. Was in halfway, did have dark urine, tested urine, NEG. [...] Directed pt to d/c cream. Was in halfway after having stroke and heart attack. Reports [...] well. PVR 23 cc. 4. 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 Reports she had a stroke and then had a heart attack two days later. Pt states she went into cardiac arrest. Cardiac stent placed in August. Feels she is still improving. Follow-up With When Contact Information JOSE MARIA MCDANIELS, Flo Alvarez, [address] [place] [address]- Additional Instructions: 4 months Patient Education Urinary Tract Infection, Adult I, Marielle Darby, personally scribed for Dr. Johnson on 05/11/2023 08:53:31. . Documentation recorded by the Marielle joel, accurately reflects the services(s) I performed and [...] Ambulatory Po (more content not included)... Normal [facility] Comment on above: Result Comment: Elec tronically Signed By: Flo JOHNSON MD\\.br\\Date and Time Signed: 05/11/23 08:56 EST\\.br\\Electronically Co-Signed By: Marielle Darby\\.br\\Date and Time Co-Signed: 05/11/23 08:53 EST CK [Catalytic activity/Vol]o n 04-16-2023 CPK 39 U/L Normal 24-170 [facility] Comment on above: Performed By: #### 2 157-6, 1988-5, 43975-4 #### [facility] ([id number]) [address] [place] [address], [address] [place] [address] CRP [Mass/Vol]on 04-16-2023 C REACTIVE PROTEIN 0.1 mg/dL Normal 0.000-0.744 [facility] Comment on above: Performed By: #### 2 157-6, 1987-07, 55831-9 #### [facility] ([id number]) [address] [place] [address], [address] [place] [address] ESR Photometric method (Bld) [Velocity]on 04-16-2023 ESR, ERYTHROCYTE SEDIMENTATION RATE 11 mm/h Normal 0-30 [facility] Comment on above: Performed By: #### 2 157-6, 1987-07, 65767-0 #### [facility] ([id number]) [address] [place] [address], [address] [place] [address] Provider Orderson 04-11-2023 Provider Orders [id number]#1.0 [facility] 04-06-2023 Outside Records [id number]#1 .[facility] Orderson 03-30-2023 Provider Orders [id number]#1. [facility] 03-07-2023 Outside Records [id number]#1. [facility] 02-27-2023 Outside Records [id number]#1. [facility] 02-13-2023 Outside Records [id number]#1.00 [facility] 10-02-2022 Telemedicine [id number] Jennifer Mckenzie 1940 F Date Provider Department Center 10/02/2022 FOX MCKEON [facility]HEUM [facility] No family history on file Level of Service:03747 SC PHYS/QHP TELEPHONE EVALUATION 11-20 MIN Reason for Visit and Comments: Follow-up [450178] - Unable to use video due to age and currently in extend care facility. Normal [facility] 36on 09-20-2022 36 Okay, Note on chart already she needs to schedule a telemed appointment with Dr. Cruz for follow up on biopsy results from [facility]. Normal [facility] Telephoneon 09-20-2022 Telephone [id number] Jennifer Mckenzie 1940 F Provider Department [place] 09/20/2022 758-SHAHEED MELLO [facility] No family history on file Normal [facility] LIPID PROFILEon 07-06-2022 CHOL-HDL RATIO NORM SEE BELOW Normal [facility] Comment on above: Result Comment: 3.3 - 4.4 LOW RISK 4.4 - 7.1 AVERAGE RISK 7.1 - 11.0 MODERATE RISK >11.0 HIGH RISK Performed By: #### L IPID, LIVER #### [facility] [address] [address] [address] Jill Euceda Cholesterol [Mass/Vol] 229 mg/dL Critically high <=200 [facility] Comment on above: Performed By: #### L IPID, LIVER #### [facility] [address] [address] [address] Jill Euceda Cholesterol in HDL [Mass/Vol] 52 mg/dL Normal 40-60 [facility] Comment on above: Performed By: #### L IPID, LIVER #### [facility] [address] [address] [address] Jill Euceda Cholesterol in LDL [Mass/Vol] 143.2 mg/dL Normal [facility] Comment on above: Performed By: #### L IPID, LIVER #### [facility] [address] [address] [address] Jill Euceda Cholesterol.total/C holesterol in HDL [Mass ratio] 4.4 {ratio} Normal [facility] Comment on above: Performed By: #### L IPID, LIVER #### [facility] [address] [address] [address] Jill Euceda HDL NORMAL > or = 60 mg/dl - LO W CARDIOVASCULAR RISK <40 mg/dl - HIGH CARDIOVASCULAR RISK Normal [facility] Comment on above: Performed By: #### L IPID, LIVER #### [facility] [address] [address] [address] Jill Euceda LDL CALC NORMAL SEE BELOW Normal [facility] Comment on above: Result Comment: <100 mg/dl OPTIMAL 100 - 129 mg/dl NEAR OR ABOVE OPTIMAL 130 - 159 mg/dl BORDERLINE HIGH 160 - 189 mg/dl HIGH >190 mg/dl VERY HIGH Performed By: #### L IPID, LIVER #### [facility] [address] [place] [address] Dr. Jill Euceda Triglyceride [Mass/Vol] 169 mg/dL Critically high <=150 [facility] Comment on above: Performed By: #### L IPID, LIVER #### [facility] [address] [place] [address] Dr. Jill Euceda VLDL CALC 33.8 mg/dL Normal [facility] Comment on above: Performed By: #### L IPID, LIVER #### [facility] [address] [place] [address] Dr. Jill Euceda LIVER PROFILEon 07-06-2022 Albumin [Mass/Vol] 4.0 g/dL Normal 3.4-5.0 [facility] Comment on above: Performed By: #### L IPID, LIVER #### [facility] [address] [place] [address] Dr. Jill Euceda Albumin/Globulin [Mass ratio] 0.9 {ratio} Normal [facility] Comment on above: Performed By: #### L IPID, LIVER #### [facility] [address] [place] [address] Dr. Jill Euceda ALP [Catalytic activity/Vol] 96 U/L Normal 46-116 [facility] Comment on above: Performed By: #### L IPID, LIVER #### [facility] [address] [place] [address] Dr. Jill Euceda ALT [Catalytic activity/Vol] 34 U/L Normal 14-59 [facility] Comment on above: Performed By: #### L IPID, LIVER #### [facility] [address] [address] [address] Jill Euceda AST [Catalytic activity/Vol] 24 U/L Normal 15-37 [facility] Comment on above: Performed By: #### L IPID, LIVER #### [facility] [address] [address] [address] Jill Euceda BILI, CONJUGATED 0.1 mg/dL Normal 0.0-0.2 [facility] Comment on above: Performed By: #### L IPID, LIVER #### [facility] [address] [place] [address] Dr. Jill Euceda Bilirubin [Mass/Vol] 0.6 mg/dL Normal 0.2-1.0 [facility] Comment on above: Performed By: #### L IPID, LIVER #### [facility] [address] [place] [address] Dr. Jill Euceda Globulin (S) [Mass/Vol] 4.7 g/dL Normal [facility] Comment on above: Performed By: #### L IPID, LIVER #### [facility] [address] [place] [address] Dr. Jill Euceda Protein [Mass/Vol] 8.7 g/dL Critically high 6.4-8.2 [facility] Comment on above: Performed By: #### L IPID, LIVER #### [facility] [address] [place] [address] Dr. Jill Euceda SCREENING MAMMOGRAM W/YULY, BILATERAL*on [...] VERY IMPORTANT TO YOUR HEALTH. THE CURRENT [employer] GUIDELINES RECOMMENDS ANNUAL MAMMOGRAPHY BEGINNING AT AGE 40 THIS FACILITY USES A REMINDER SYSTEM TO ENSURE ALL PATIENTS RECEIVE REMINDER NOTIFICATIONS AT THE APPROPRIATE TIME BASED ON THE RECOMMENDATIONS OF THIS EXAM. Report reported and signed by Johan Meyer on 04/18/2022 1550 Normal [facility] XR Bone Density (DEXA)on XR Bone Density [...] by Rojas Sinha on 04/19/2022 0905 Normal [facility] Sunil 04-12-2022 L -- ---- Specimen: [id number] Received: 04/13/22 Status: CHERRY Porter Num: [id number] Spec Type: Surgical Subm Dr: Seamus Rios,DO Tissues: A Skin-Other than Cyst, tag, debridement or plastic repair (MID BACK) Procedures: S 100, HE/3, Gross/Micro L4 ---- Age/ Patient Sex Location Account Attending Physician ---- Jennifer Mckenzie 81/F [facility] [id number] Seamus Rios,DO ---- SPEC NUM: [id number] RECD: 04/13/22 STATUS: CHERRY REJudith NUM: [id number] VICENTE: 04/12/[address] [facility] [address]: Seamus Rios DO ENTERED: 04/13/22 [facility] [address]: Agus Tabor SPEC TYPE: Surgical DEPT: MAG SAENZ ORDERED: S 100, HE/3, Gross/Micro L4 ORDERED: S 100, HE/3, Gross/Micro L4 Pathological Diagnosis Skin, mid back, shave excision: - INTRADERMAL NEVUS. COMMENT: S100 garrido the nevus cells within the dermis. This supports the above diagnosis. For routine supervisor vendor quality purposes, the case has been prospectively [...] [id number] Received: 04/13/22 Status: CHERRY Porter Num: [id number] Spec Type: Surgical Subm Dr: Seamus Rios DO Tissues: A Skin-Other than Cyst, tag, debridement or plastic repair (MID BACK) Procedures: S 100, HE/3, Gross/Micro L4 ---- Patient: MagalyJennifer [id number] (Continued) ---- Specimen: [id number] Received: 04/13/22 (Continued) Signed (signature on file) Sloane Fish MD 04/17/22 1523 ---- Specimen: [id number] Received: 04/13/22 Status: CHERRY Porter Num: [id number] Spec Type: Surgical Subm Dr: Seamus Rios DO Tissues: A Skin-Other than Cyst, tag, debridement or plastic repair (MID BACK) Procedures: S 100, HE/3, Gross/Micro L4 ---- Patient: NanettemalissayelenaJennifer [id number] (Continued) ---- Specimen: [id number] Received: 04/13/22 (Continued) CPT Codes 84959; 08164 ---- ---- Specimen: [id number] Received: 04/13/22-1226 Status: CHERRY Porter Num: [id number] Spec Type: Surgical Subm Dr: Seamus Rios DO Tissues: A Skin-Other than Cyst, tag, debridement or plastic repair (MID BACK) Procedures: S 100, HE/3, Gross/Micro L4 ---- Patient: Jennifer Mckenzie [id number] (Continued) ---- Signed (signature on file) Sloane Fish MD 04/17/22 1523 [facility] Vital Signs Date Time Vital Sign Value Performing Clinician Florence berry 09-21-2023 08:38-0400 Blood Pressure Location Flo JOHNSON [facility] 09-21-2023 08:38-0400 Body temperature 98.6 [degF] Flo JOHNSON [facility] 09-21-2023 08:38-0400 Diastolic blood pressure 63 mm[Hg] Flo JOHNSON [facility] 09-21-2023 08:38-0400 Heart rate 65 /min Flo JOHNSON [facility] 09-21-2023 08:38-0400 Respiratory rate 16 /min Flo JOHNSON [facility] 09-21-2023 08:38-0400 Systolic blood pressure 121 mm[Hg] Flo JOHNSON [facility] 05-11-2023 08:19-0500 Blood Pressure Location Flo JOHNSON [facility] 05-11-2023 08:19-0500 Diastolic blood pressure 79 mm[Hg] Flo JOHNSON [facility] 05-11-2023 08:19-0500 Heart rate 67 /min Flo JOHNSON [facility] 05-11-2023 08:19-0500 Respiratory rate 16 /min Flo JOHNSON [facility] 05-11-2023 08:19-0500 Systolic blood pressure 134 mm[Hg] Flo JOHNSON [facility] 05-01-2022 12:55-0500 Blood Pressure Location Flo JOHNSON [facility] 05-01-2022 12:55-0500 Diastolic blood pressure 72 mm[Hg] Flo JOHNSON [facility] 05-01-2022 12:55-0500 Heart rate 65 /min Flo JOHNSON [facility] 05-01-2022 12:55-0500 Respiratory rate 16 /min Flo JOHNSON [facility] 05-01-2022 12:55-0500 Systolic blood pressure 126 mm[Hg] Flo JOHNSON [facility] Encounters Encounter Date Encounter Type Care Provider Facility Start: 02-04-2024 ambulatory Flo JOHNSON Facili ty:[facility] Start: 12-18-2023 End: 12-18-2023 ambulatory Seamus Rios Facility: [facility] Start: 2023 End: 2023 ambulatory Seamus Rios Facility: [facility] Start: 09-21-2023 End: 09-21-2023 ambulatory Flo JOHNSON Facility:[facility] Start: 09-21-2023 End: 09-21-2023 Patient encounter procedure Flo JOHNSON [facility] Start: 09-13-2023 End: 09-13-2023 ambulatory Seamus Rios Facility: [facility] Start: 09-07-2023 End: 09-07-2023 ambulatory [facility] Start: 09-04-2023 End: 09-04-2023 ambulatory SEAMUS RODRIGUEZ Not Available Start: 06-14-2023 Telephone encounter Nuria Granados [facility] Start: 06-13-2023 Telephone encounter Christina Zavala CMA [facility] Start: 06-07-2023 End: 06-07-2023 ambulatory Seamus Rios Facility: [facility] Start: 05-30-2023 End: 05-30-2023 ambulatory SEAMUS RIOS [facility] Start: 05-11-2023 End: 05-11-2023 Lab Drop off Flo JOHNSON [facility] Start: 05-11-2023 End: 05-11-2023 ambulatory Flo JOHNSON Facility:[facility] Start: 05-11-2023 End: 05-11-2023 Patient encounter procedure Flo JOHNSON [facility] Start: 04-16-2023 End: 04-16-2023 ambulatory KATARZYNALiya BASHIR [facility] Start: 03-07-2023 End: 03-07-2023 ambulatory Seamus Rios Facility:[facility] Start: 02-08-2023 End: 02-08-2023 ambulatory Angeline Dickerson Facility:[facility] Start: 10-02-2022 End: 10-02-2022 ambulatory FOX CRUZ [facility] Start: 07-06-2022 End: 07-07-[address] OLIVEIRA LISTED REQUEST Facility: Start: 05-01-2022 End: 05-01-2022 Patient encounter procedure Flo JOHNSON [facility] Start: 04-12-2022 End: 04-12-2022 ambulatory Seamus Rios Facility:[facility] Start: 04-12-2022 End: 04-12-2022 ambulatory DO Seamus Rios Work Phone: [facility] Work Phone: Start: 04-12-2022 End: 04-12-2022 Departed Referred DO Seamus Rios Work Phone: [facility] Path [facility] Start: 03-10-2022 End: 03-10-2022 ambulatory ELVER KEEN . Facility: Procedures Date Procedure Procedure Detail Performing Clinician Start: 09-07-2023 Follow-up visit Follow-up MIKE DELGADO Start: 10-02-2022 Follow-up visit Follow-up FOX Elliott Start: 09-02-2022 Adult depression scr eening assessment Christina Zavala CMA Start: 12-18-2011 Cystourethroscopy wi th dilation of urethral stricture Flo JOHNSON Appendectomy Flo JOHNSON Extraction of cataract Franci JOHNSON H/O: hysterectomy Flo CHRIS COLLADOBaylee Placement of stent i n cardiac conduit Flo JOHNSON Plan of Treatment Date Care Activity Detail Author Start: 10-19-2023 Adult BMI Screening Adult BMI Screening [facility] Start: 10-19-2023 Tobacco Screening Tobacco Screening [facility] Start: 09-03-2023 Depression Screening Depression Screening [facility] Start: 06-14-2023 End: 06-14-2023 Patient encounter procedure 06/14/2023 12:00 PM EDT Office Visit [facility] [address] [place] [address] Jarred Goldstein MD [address] [place] [address] [facility] Start: 11-24-2022 Influenza vaccination Influenza Vaccine [facility] Start: 08-24-2022 DTaP,Tdap and Td Vaccines (2 - Td or Tdap) DTaP,Tdap and Td Vaccines (2 - Td or Tdap) [facility] Start: 10-05-2007 Fall Risk Screening Fall Risk Screening [facility] Start: 1992 Administration of varicella zoster vaccine Zoster (Shingles) Vaccine (1 of 2) [facility] Start: 1940 Medicare Annual Wellness Visit Medicare Annual Wellness Visit [facility] Immunizations Immunization Date Immunization Notes Care Provider Fa андрей 08-24-2012 tetanus and diphther ia toxoids, adsorbed, preservative free, for adult use (2 Lf of tetanus toxoid and 2 Lf of diphtheria toxoid) Flo JOHNSON [facility] 08-24-2012 tetanus and diphther ia toxoids, adsorbed, preservative free, for adult use (5 Lf of tetanus toxoid and 2 Lf of diphtheria toxoid) Christina Zavala [facility] NEGATED: Highlighted row has not occurred!01-30-2020 influenza virus vaccine, unspecified formulation Flo JOHNSON [facility] Payers Date Payer Category Payer Private Health Insurance 2022 Self-pay [id number] 2022 Medicare [employer] MEDICARE UHC MEDICARE ADVANTAGE PPO [id number] 2022-Present [phone] [address] [address] [place] [address] [id number] 1959 Medicare [id number] 1959 Medicare [id number] 1942 Unknown [id number] 2.16.840.1.351883.3.579. 2.593 1942 Unknown [id number] 2.16.840.1.639975.3.579. 2.593 1942 Unknown [id number] 2.16.840.1.792126.3.579. 2.1259 1942 Unknown [id number] 2.16.840.1.337820.3.579. 2.1286 1942 Unknown [id number] 2.16.840.1.132508.3.579. 2.1286 1942 Unknown [id number] 2.16.840.1.381902.3.579. 2.1286 1942 Unknown [id number] 2.16.840.1.405975.3.579. 2.727 1942 Unknown [id number] 2.16.840.1.117717.3.579. 2.727 1942 Unknown [id number] 2.16.840.1.642030.3.579. 2.727 1942 Unknown [id number] 2.16.840.1.947258.3.579. 2.727 1942 Unknown [id number] 2.16.840.1.468699.3.579. 2.718 1942 Unknown [id number] 2.16.840.1.261729.3.579. 2. 1942 Unknown [id number] 2.16.840.1.762276.3.579. 2. 1942 Unknown [id number] 2.16.840.1.100701.3.579. 2. 1942 Unknown [id number] 2.16.840.1.538098.3.579. 2. 1942 Unknown [id number] 2.16.840.1.253455.3.579. 2. Medicare Medicare [id number] Private Health Insurance [employer] MCR PFFS [id number] Unknown [place] BC/BS [id number] Unknown [id number] 2.16.840.1.662808.3.579. 2.531 Social History Date Type Detail Facility Tobacco smoking stat [facility] Unknown if ever smoked [facility] Work Phone: Start: 1940 Sex Assigned At Female [facility] Start: 01-31-2021 End: 09-21-2023 Tobacco smoking status Never smoked tobacco (finding) [facility] Start: 05-06-2020 End: 09-02-2022 Sex Assigned At Female [facility] Tobacco smoking status Never [facility] Start: 09-13-2022 Tobacco use and exposure Smokeless tobacco non-user [facility] Start: 10-18-2022 Alcohol intake Ex-drinker (finding) [facility] Start: 05-06-2020 End: 09-02-2022 History of Social function [employer] How often to you hav e a drink containing alcohol? Never [facility] Start: 1940 Sex Assigned At Not on file P FP Complete System Medical Equipment Procedure Code Equipment Code Equipment Origin al Text Equipment Identifier Dates Lens Iol Ultrase rt 22.5d - [id number] - [id number] Start: 02-15-2021 Lens Iol Ultrase rt 22.5d - [id number] - [id number] Start: 03-01-2021 System Cor Stnt 2.25mm X 18mm 145cm Xience Skypnt Mtlnk Juan - [id number] [facility] Start: 09-11-2022 Goals Date Patient Goal [...] 09-21-2023 Functional Status N/A [facility] 05-11-2023 Functional Status N/A [facility] 05-01-2022 Functional Status N/A [facility] Clinical Notes 03-10-2022 to 12-19-2023 Telephone Encounter - Nuria Granados - 06/14/2023 8:28 AM EDTTelephone Encounter - Nuria Granados - 06/14/2023 8:28 AM EDTTelephone Encounter - Christina Zavala CMA - 06/13/2023 11:14 AM EDT Note Date & Type Note Facility 12-19-2023 Note - From: Coral Faith RN ([facility] ([facility])) To: Seamus Rios DO; Sent: 12/19/2023 13:16:03 EDT Subject: Med Management Caller Name: JENNIFER MCKENZIE; Caller Number: H Caller is: ( X ) Patient ( ) Mother ( ) Father ( ) Pharmacy ( ) Other: Pharmacy to route Rx to: [facility] Patient's Provider: Reviewed Allergies: ( ) Yes ( ) No Pharmacy: [facility] Comments: 1. Name of Medication: ZETIA 10MG [...] 3 Substitutions Allowed Route To Pharmacy - [facility] Signed by Seamus Rios DO 12/19/2023 13:30:00 EDT [facility] 11-19-2023 Note - From: Coral Faith RN ([facility] ([facility] To: Seamus Rios DO; Sent: 11/19/2023 09:12:57 EDT Subject: Med Management Caller Name: JENNIFER MCKENZIE; Caller Number: H Caller is: ( X ) Patient ( ) Mother ( ) Father ( ) Pharmacy ( ) Other: Pharmacy to route Rx to: [facility] Patient's Provider: Reviewed Allergies: ( ) Yes ( ) No Pharmacy: [facility] Comments: 1. Name of Medication: PLAVIX [...] 3 Substitutions Allowed Route To Pharmacy - [facility] Signed by Seamus Rios DO 11/19/2023 09:13:00 EDT [facility] 11-14-2023 Note - From: Coral Faith RN ([facility] ([facility] To: Seamus Rios DO; Sent: 11/14/2023 10:16:44 EDT Subject: Med Management Caller Name: JENNIFER MCKENZIE; Caller Number: H Caller is: ( X ) Patient ( ) Mother ( ) Father ( ) Pharmacy ( ) Other: Pharmacy to route Rx to: [facility] Patient's Provider: Reviewed Allergies: ( ) Yes ( ) No Pharmacy: [facility] Comments: 1. Name of Medication: LEVOTHYROXINE 50mcg [...] tab(s) Refills: 3 Substitutions Allowed Route To [facility] - [facility] Signed by Seamus Rios DO 11/14/2023 10:25:00 EDT Submitted: Order:levothyroxine (Synthroid 50 mcg (0.05 mg) oral tablet) 1 tab(s) Oral Daily Qty: 90 tab(s) Refills: 3 Substitutions Allowed Route To [facility] Signed by Seamus Rios DO 11/14/2023 10:25:00 EDT [facility] 11-05-2023 Note - From: Coral Faith RN ([facility] ([facility])) To: Seamus Rios DO; Sent: 11/05/2023 07:07:13 EDT Subject: FW: Medication Management Due Date/Time: 11/05/2023 06:36:00 EDT Caller Name: MAGALY JENNIFER COLÓN; Caller Number: H From: [facility] #[id number] To: Seamus Rios DO Sent: November 04, [...] Pharmacy: From: Seamus Rios DO To: [facility] #[id number] Sent: 11/05/2023 07:16:54 EDT Subject: FW: Medication Management Submitted: Complete:clopidogrel (clopidogrel 75 mg oral tablet) Signed by Seamus Rios DO 11/05/2023 07:16:00 EDT Approved with modifications: clopidogrel (CLOPIDOGREL 75 MG TABLET) take 1 tablet by mouth once daily Qty: 90 tab(s) Days Supply: 90 Refills: 3 Substitutions Allowed Route To Pharmacy - [facility] #[id number] [facility] 09-21-2023 Hospital Discharg e instructions Patient Education [...] Treatment for this condition includes: Antibiotic medicine. Ynwc-zjt-zvynddh medicines to treat discomfort. Drinking enough water [...] Follow these instructions at home: Medicines Take toaw-nmo-isuumqr and prescription medicines only as told by [...] provider. Document Revised: 10/22/2020 Document Reviewed: 10/22/2020 [employer] Patient Education 2022 [employer]. Follow Up Care 05/11/2023 09:00:33 With:JOSE MARIA MCDANIELS, Flo Alvarez, URL Address: [address] [place], [place] [id number]- When: Unknown [facility]21[facility]2023 Note Patient Education Obstetrics and Gynecology [...] this condition includes: ? Antibiotic medicine. ? Enyh-hza-mkoezrh medicines to treat discomfort. ? Drinking enough [...] these instructions at home: Medicines ? Take xfnf-kin-bzsuxuv and prescription medicines only as told by [...] Document Revised: 10/22 (more content not included)... [facility] 06-14-2023 Miscellaneous Notes T/c to pt to r/s her PPC appt as [facility] is out, no answer and no v/m. documented in this encounter [facility] 06-14-2023 Telephone encounter Note T/c to pt to r/s her [facility] appt as [facility] is out, no answer and no v/m. [facility] 06-13-2023 Miscellaneous Notes Called patient to remind them to bring their most current copy of their medication list with them to their appt. Patient verbalizes understanding. documented in this encounter [facility] 06-13-2023 Telephone encounter Note Called patient to remind them to bring their most current copy of their medication list with them to their appt. [facility] verbalizes understanding. [facility] - From: Nola Kaufman ([facility] ([facility] To: Seamus Rios DO; Sent: 05/25/2023 11:21:31 [facility] Subject: Med Management Caller Name: JENNIFER MCKENZIE; Caller Number: H Caller is: ( x ) Patient ( ) Mother ( ) Father ( ) Pharmacy ( ) Other: Pharmacy to route Rx to: [facility] in [place] Patient's Provider: Reviewed Allergies: ( ) Yes ( ) No Pharmacy: [facility] [place] Comments: 1. Name of Medication: clopidogrel (clopidogrel [...] Allowed Route To Pharmacy - [facility] #[id number] Signed by Seamus Rios DO 05/25/2023 11:41:00 [facility] 05-11-2023 Hospital Discharg e instructions [...] Treatment for this condition includes: Antibiotic medicine. Bxra-hxd-lgjtavt medicines to treat discomfort. Drinking enough water [...] Follow these instructions at home: Medicines Take orgq-vax-evnwyua and prescription medicines only as told by [...] provider. Document Revised: 10/22/2020 Document Reviewed: 10/22/2020 [employer] Patient Education 2022 [employer] 05/11/2023 08:45:44 Urinary Tract Infection, Adult Urinary [...] Treatment for this condition includes: Antibiotic medicine. Trxt-ecb-spmuvcz medicines to treat discomfort. Drinking enough water [...] Follow these instructions at home: Medicines Take lqgw-app-pbabrvx and prescription medicines only as told by [...] provider. Document Revised: 10/22/2020 Document Reviewed: 10/22/2020 [employer] Patient Education 2022 [employer] Follow Up Care 05/01/2022 14:14:03 With:JOSE MARIA MCDANIELS, Flo Alvarez, URL Address: [address] [place] [address]- When: Unknown [facility] 03-02-2023 Note - From: Coral Faith RN ([facility] ([facility])) To: Seamus Rios DO; Sent: 03/02/2023 10:26:14 EST Subject: Med Management Caller Name: JENNIFER MCKENZIE; Caller Number: H Caller is: ( X ) Patient ( ) Mother ( ) Father ( ) Pharmacy ( ) Other: Pharmacy to route Rx to: [facility] Patient's Provider: Reviewed Allergies: ( ) Yes ( ) No Pharm[facility]: [facility]. SHE WOULD LIKE SENT TO [facility]. 1. Name of Medication: ELIQUIS 5MG BID [...] 3 Substitutions Allowed Route To Pharmacy - [facility] [id number] Signed by Seamus Rios DO 03/02/2023 10:44:00 EST [facility] 02-28-2023 Note - From: Coral Faith RN ([facility] ([facility])) To: Seamus Rios DO; Sent: 02/28/2023 08:56:39 EST Subject: Med Management Caller Name: JENNIFER MCKENZIEE; Caller Number: H Caller is: ( X ) Patient ( ) Mother ( ) Father ( ) Pharmacy ( ) Other: Pharmacy to route Rx to: [facility] Patient's Provider: Reviewed Allergies: ( ) Yes ( ) No Pharmacy: [facility] Comments: THIS IS NOT ON HER MED [...] Allowed Route To Pharmacy - [facility] #[id number] Signed by Seamus Rios DO 02/28/2023 09:28:00 [facility] 02-19-2023 Note - From: Coral Faith RN ([facility] ([facility] To: Seamus Rios DO; Sent: 02/19/2023 09:18:54 [facility] Subject: Med Management Caller Name: JENNIFER MCKENZIE; [...] Allowed Route To Pharmacy - [facility] #[id number] Signed by Seaums Rios DO 02/19/2023 09:35:00 EST [facility] 02-14-2023 Note - From: Coral Faith RN ([facility] ([facility] To: Seamus Rios DO; Sent: 02/14/2023 15:13:30 EST Subject: FW: Medication Management Due Date/Time: 02/15/2023 15:11:00 EST Caller Name: JENNIFER MCKENZIE; Caller Number: H [id number] To: Seamus Rios DO Sent: February 14, 2023 2:11:37 PM 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 Subject: Medication Management Due: February 15, 2023 12:10:59 AM 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 On Hold Pending Signature Drug: clopidogrel (clopidogrel 75 mg oral tablet), 1 tab(s) PO Daily Quantity: 90 tab(s) Days Supply: 90 Refills: 0 Substitutions Allowed Notes from Pharmacy: Dispensed Drug: clopidogrel (clopidogrel 75 mg oral tablet), take 1 tablet by mouth once daily Quantity: 90 tab(s) Days Supply: 90 Refills: 0 Substitutions Allowed Notes from Pharmacy: From: Seamus Rios DO To: [facility] #[id number] Sent: 02/14/2023 15:23:37 EST Subject: FW: Medication Management Approved with modifications: clopidogrel (CLOPIDOGREL 75 MG TABLET) take 1 tablet by mouth once daily Qty: 90 tab(s) Days Supply: 90 Refills: 3 Substitutions Allowed Route To Pharmacy - [facility] #[id number] [facility] 10-02-2022 Note RHEUMATOLOGY CLINIC NOTE Rheumatology was [...] Parkinson's and HLD who presented initially to [facility] on 09/01/[address] brain without acute intracranial process. CTA head neck without large vessel occlusion. Patient was transferred to [facility] 09/02 for concern for stroke. WBC 21.8. [...] cervical spine w and wo contrast Order: [id number] Narrative MR CERVICAL SPINE W WO CONT [...] No pathologic intramedullary enhancement Multilevel discogenic disease, installation service representative levels detailed below: C4-C5:Posterior disc [...] as described, submitted for further studies to [facility] (gross examination only). Report Electronically Signed Out waben/09/14/2022Deondre Arzola MD Addendum ([facility]) Date Reported: 09/20/2022 Results of Muscle Pathology Consultation dated 09/19/2022 are received from Priyanka Sierra (more content not included)... [facility] 05-01-2022 Hospital Discharg e instructions Patient Education [...] fried and sweet foods. General instructions Take xnbt-rzv-kcekhyi and prescription medicines only as told by [...] 01/06/2010 Document Revised: 07/03/2019 Document Reviewed: 03/28/2018 [employer] Patient Education 2020 [employer]. Follow Up Care 01/31/2021 12:27:14 With:JOSE MARIA MCDANIELS, Flo Alvarez, URL Address: [facility] [address], [place] [phone] When:05/01/2023 [facility] 03-10-2022 Note PROCEDURE: XR HIP LT 2 [...] authenticated by: SEAMUS LARA Date: 2022-03-10 11:50 [facility] 03-10-2022 Note PROCEDURE: XR HIP LT [...] authenticated by: SEAMUS LARA Date: 2022-03-10 11:50 [facility] Evaluation + Plan note Future Appointments Appointment Date:05/11/2023 08:00:00 AM Scheduled Provider:Flo JOHNSON MD Location:[facility] Appointment Type:URO Office Visit [facility] Evaluation + Plan note Future Appointments Appointment Date:09/21/2023 08:30:00 AM Scheduled Provider:Flo JOHNSON MD Location:[facility] Appointment Type:URO Office Visit Diagnostic Tests PendingUrine Culture 05/11/23 [facility] Evaluation + Plan note Future Appointments Appointment Date:09/21/2023 08:30:00 AM Scheduled Provider:Flo JOHNSON MD Location:[facility] Appointment Type:URO Office Visit [facility] Evaluation + Plan note Future Appointments Appointment Date:02/04/2024 10:15:00 AM Scheduled Provider:Flo JOHNSON MD Location:[facility] Appointment Type:URO Office Visit [facility] Evaluation note No assessment inform ation available [facility] Work Phone: Hospital course Narrative No data available for this section [facility] Discharge instructions No data available for this section [facility] Instructions Not on filedocumente d in this encounter [facility] [employer] [facility] Progress note No data available for this section [facility] Summary Purpose Family History No Family History [...] Dates Seamus Rios DO Primary Care Provider, Attending Niocle hamilton Active Team Status: Active Member Role Status Dates Seamus Rios DO 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 Relationship Specialty Start Date End Date Seamus Rios DO [address] [place] [address] PCP - General Family Medicine 11/23/16 Goals (unrecognized section and content) Goals may be documented in a n alternate section No data available for this section No data available for this section No data available for this section No data available for this section INFORMATION SOURCE (unrecogn ized section and content) DATE CREATED AUTHOR 04/19/2022 [facility] DATE CREATED AUTHOR AUTHOR'S ORGANIZ ATION 04/19/2022 [facility] Special[facility] DATE CREATED AUTHOR AUTHOR'S ORGANIZ ATION 07/12/2022 [facility] DATE CREATED AUTHOR AUTHOR'S ORGANIZ ATION 10/23/2022 [facility] DATE CREATED AUTHOR AUTHOR'S ORGANIZ ATION 09/05/2023 [facility] DATE CREATED AUTHOR AUTHOR'S ORGANIZ ATION 09/08/[address] [facility] DATE CREATED AUTHOR AUTHOR'S ORGANIZ ATION 09/22/2023 [facility] DATE CREATED AUTHOR AUTHOR'S ORGANIZ ATION 01/16/2024 [facility] FOR RECORDS PERTAINING TO PATIENTS WHO ARE [...] BE BASED ON THE PRIMARY CLINICAL RECORDS. [facility] [employer] [facility]. provides no warranty or guarantee of the accuracy or completeness of information in this document."
--- NOTE | 2024-01-22 10:40 | US_ITS ---
The [address] [address] Patient Name: JENNIFER BROWN MRN: [id number] date: 1940 Sex: F Assigned Patient Location: [place] Current Patient Location: [place] Accession/Order Number: [id number] Exam Date: 01/22/2024 11:45 Report Date: 01/22/2024 14:53 At the request of: ERNESTO MONTANA Procedure: US carotid duplex BI DUPLEX ULTRASOUND EXAMINATION OF THE CAROTID ARTERIES. COMPARISON: CTA neck 09/01/2022. HISTORY / INDICATIONS: Dizziness and stroke one-half years ago. TECHNIQUE: Bilateral common carotid arteries, extracranial internal and external carotid arteries are evaluated with gardner-scale imaging, color Doppler, and spectral analysis according to a standard protocol. ICA-CCA ratios are calculated with phlebotomy services representative peak-systolic velocities and recorded. Vertebral arteries are evaluated in one segment to evaluate for patency and character of flow. Comparison with previous evaluation is performed when available. Unless otherwise specified, all velocities are measured in cm/sec. Carotid stenosis is reported according to validated velocity parameters, similar to NASCET criteria. FINDINGS: Right Carotid: Plaque was noted. Velocity measurements as follows: Internal Carotid Artery 74/16 and 106/24. ICA to CCA ratio: 2.3. Left Carotid: Plaque was noted. Velocity measurements as follows: Internal Carotid Artery 62/15 and 97/19. ICA to CCA ratio: 1.1. Antegrade flow was seen in both vertebral arteries. CONCLUSION: 1. Less than 50% stenosis of the right ICA. 2. Less than 50% stenosis of the left ICA. 3. Vertebral arteries are patent and demonstrate flow. Electronically authenticated by: Albino RAYMOND Date: 01/22/2024 14:53
--- NOTE | 2024-01-22 10:40 | MR_ITS ---
The [address] [address] Patient Name: JENNIFER BROWN MRN: [id number] date: 1940 Sex: F Assigned Patient Location: [place] Current Patient Location: [place] Accession/Order Number: [id number] Exam Date: 01/22/2024 11:00 Report Date: 01/22/2024 14:15 At the request of: ERNESTO MONTANA Procedure: MR head/brain wo/w con EXAM: MR head/brain wo/w con HISTORY: Dizziness COMPARISON: CT brain 10/27/2023. ECHNIQUE: Multisequence MRI brain was performed with and without intravenous contrast. FINDINGS: There is no restricted diffusion to suggest acute infarct. There is no midline shift, mass effect, or abnormal extraaxial fluid collections. There are no abnormal parenchymal or leptomeningeal enhancement. There is mild cerebral and cerebellar atrophy. Multiple nonspecific scattered foci of T2/FLAIR signal abnormality are identified in the fab and supratentorial white matter, likely reflect chronic microvascular ischemic changes. The major intracranial flow voids are visualized. The cerebellar tonsils are normal in position. The orbits demonstrate no suspicious enhancement or any focal lesions. The paranasal sinuses show no air-fluid level. The mastoid air cells are clear. The calvarium and extracranial soft tissues are unremarkable. MR/MR head/brain wo/w con IMPRESSION: No acute intracranial process or abnormal intracranial enhancement identified. Mild generalized atrophic and moderate chronic microvascular ischemic changes. Electronically authenticated by: DARRIAN COTTER Date: 01/22/2024 14:15
== END 2024-01-22 10:36 | disposition home or self-care (01) ==
LOC: US 10:35
PROVIDERS: Visit Provider Family Medicine
DX: R42 Dizziness and giddiness (principal)
CPT/HCPCS: 70553; 93880; A9575